=== PATIENT | male | born 1935 | race Caucasian/White ===

== ENCOUNTER → 2016-12-23 | Outpatient (CLI) | payer MEDICARE, OTHER ==
[~2016-12-23] MED LIST: AML2.5T; AML2.5T PO; AMLO2.5T PO; ASP81TEC PO; CANA100T PO; CARB1TAB19 PO; CARB1TAB44 PO; CEFD300C3 PO; CENTRUM SILVER; CLOP75TA28 PO; CLPD75T; COLC0.6C3 PO; ECOTRIN; FURO20TA4 PO; GLBR5T; GLIM4TAB PO; HYDR-3454 PO; HYDR-3812 PO; IRB150T; MELO7.5T; METF500T4 PO; METO-272 PO; METO50TA2 PO; MTF500T PO; MULT-1029 PO; MULT-608; SULF1TAB35 PO; TELM20TA PO; TELM40T PO; VALS160T28 PO; [UNRECOGNIZED DRUG - OTHER]
--- OUTSIDE RECORDS SUMMARY | 2016-12-23 11:52 | XMS REPORT | Continuity of Care Document ---
Author Author [facility] Organization [facility] Address Unknown Phone Unavailable Care Team Providers Care Glass Handler Name Role Phone RADHA HOYOS DO PCP Insurance Providers Payer Name Policy Number Subscriber Name Relationship Wps Medicare [id number] Imtiaz Fox 18 Self / Same As Patient [employer] Ins [id number] Imtiaz Fox 18 Self / Same As Patient Advance Directives Directive Response Recorded Date/Time Advance Directives Yes 06/13/16 6:35am Health Care Power of Plan Checker Y & daughter zachary 6:35am Organ Donor No 06/13/16 6:35am Resuscitation Status Full Code 06/13/16 6:35am Problems No problem information available. Medications Current Home Medications Medication Dose Units Route Directions Days/Qty Instructions Start Date Metformin Hcl 500 Mg Oral 2 TABS/1000MG PO WITH BREAKFAST 1 TAB/ 500MG PO WITH DINNER 01/11/09 Glimepiride 4 Mg 4 Mg Oral Bidwithmeals 07/05/13 Aspirin 81 Mg 81 Mg Oral Daily 07/05/13 Carbidopa/Levodopa 1 Each 1 Each Oral Twice A Day 03/09/15 Clopidogrel Bisulfate 75 Mg 75 Mg Oral Daily 03/09/15 Metoprolol Tartrate 50 Mg 50 Mg Oral Daily 03/09/15 Valsartan 160 Mg 160 Mg Oral Daily 06/10/16 Amlodipine Besylate 2.5 Mg 2.5 Mg Oral Daily 06/10/16 Past Home Medications Medication Directions Ordered Status [Lavaprol] 150 Mg Tab, 01/11/09 Discontinued [Ecotrin] 81 Mg Tab, 01/11/09 Discontinued Amlodipine Besylate 2.5 Mg Tab, 01/11/09 Discontinued Meloxicam 7.5 Mg Tablet, 01/11/09 Discontinued Clopidogrel Bisulfate 75 Mg Tab, 01/11/09 Discontinued Glyburide 5 Mg Tab, 01/11/09 Discontinued [Centrum Silver] Tab, 01/11/09 Discontinued Irbesartan 150 Mg Tab, 07/12/09 Discontinued Irbesartan 150 Mg Tab, 07/12/09 Discontinued Multivitamins 1 Tab Tablet, 07/12/09 Discontinued Telmisartan 40 Mg Tab, 40 Mg Oral Daily 07/05/13 Discontinued Mu-Vits-Min // 1 Each Tablet, 1 Tab Oral Daily 07/05/13 Discontinued Amlodipine Besylate 2.5 Mg Tab, 5 Mg Oral Daily 07/07/13 Discontinued Telmisartan 20 Mg Tablet, 20 Mg Oral Daily 03/09/15 Discontinued Hydrocodone Bit/Acetaminophen 1 Each Tablet, 1 Each Oral Every 4HRS as needed for Pain 03/16/15 Discontinued Social History Social History Problem Response Recorded Date/Time Alcohol Use Denies Use 03/16/2015 9:10am Recreational Drug Use No 03/16/2015 9:10am Recent Foreign Travel No 07/04/2013 9:05pm Recent Infectious Disease Exposure No 07/04/2013 9:05pm Hospitalization with Isolation Contact 07/07/2013 3:20pm Sexually Transmitted Disease Yes 06/13/2016 6:35am HIV/AIDS No 06/13/2016 6:35am Smoking Status Former Smoker 06/13/2016 6:35am Sexually Transmitted Disease Yes 06/13/2016 6:35am Hospitalization with Isolation Contact 07/07/2013 3:20pm Query Response Start Date Stop Date Smoking Status Former Smoker Hospital Discharge Instructions Patient Instructions Physician Instructions Plan of Care/Instructions/FU: Follow up with Dr. Iyer in 7-10 days. Begin all medications tomorrow. Discharge Diet: No Restrictions Other Inst to Patient Follow up Appt: Make appointment for 7-10 days Begin all medication tomorrow. Instructions: No lifting greater than 10 pounds. No strenuous activity. May shower in 24 hours, no tub bath or soaking. Use incentive spirometer at home as directed. No Smoking Skin/Wound Care: May remove bandages. You need to leave the white strips over incision on they will fall off on their own. Symptoms to Report: Appetite Changes, Extremity Discoloration, Numbness/Tingling, Swelling Increased, Bleeding Excessive, Eyesight Changes, Pain Increased, Urine Color Change, Constipation(Persistent), Fever over 101 degree F, Pain/Pressure in chest, Urinating Difficulty, Cough Up/Vomit Blood, Heart Beat Irreg/Pounding, Pain/Pressure in jaw, Vaginal Bleeding Increase, Cramps in feet or legs, Lightheadedness, Pain/Pressure in shoulder, Diarrhea(Persistent), Memory Changes Suddenly, Questions/Concerns, Weight gain consecutive days, Dizziness/Fainting, Nausea/Vomiting, Shortness of Breath, Weight gain over 2 pounds If questions or concerns contact your physician Or seek help at emergency department. Care Plan Patient Instructions:: Follow up with Dr. Iyer in 7-10 days.Begin all medications tomorrow. Plan of Care Discharge Date 06/13/16 10:40am Instructions/Education Provided ANESTHESIA INSTRUCTIONS POSTOP Prescriptions See Medication Section Functional Status No functional status results. Allergies, Adverse Reactions, Alerts Allergen Type Severity Reaction Status Last Updated Meperidine Allergy Mild Active 01/11/09 Immunizations No immunization records. Vital Signs Acute Vital Signs Vital Response Date/Time Temperature (Fahrenheit) 97.3 degrees F (97.6 - 99.5) 06/13/2016 10:20am Temperature (Calculated Celsius) 36.15378 degrees C (36.4 - 37.5) 06/13/2016 10:20am Temperature Source Temporal 06/13/2016 10:20am Pulse Rate (adult) 64 bpm (60 - 90) 06/13/2016 10:20am Respiratory Rate 18 bpm (12 - 24) 06/13/2016 10:20am O2 Sat by Pulse Oximetry 98 % (88 - 100) 06/13/2016 10:20am Blood Pressure 141/77 mm Hg 06/13/2016 10:20am Blood Pressure Mean 107 mm Hg 06/13/2016 6:35am Pain Numeric Pain Scale 0-No Pain 06/13/2016 10:35am Pain Intensity 0 06/13/2016 10:20am Height (Feet) 5 feet 06/13/2016 6:35am Height (Inches) 8.00 inches 06/13/2016 6:35am Height (Calculated Centimeters) 172.552448 cm 06/13/2016 6:35am Weight (Pounds) 197 pounds 06/13/2016 6:35am Weight (Ounces) 6.0 oz 06/13/2016 6:35am Weight (Calculated Grams) 31355.80 gm 06/13/2016 6:35am Weight (Calculated Kilograms) 89.523277 kilograms 06/13/2016 6:35am Calculated BMI 30.0 06/13/2016 6:35am Capillary Refill Capillary Refill Less Than 3 Seconds 06/13/2016 6:35am Results Laboratory Results Test Name Result Units Flags Reference Collection Date/Time Result Date/ Time Comments White Blood Count 9.9 10^3/uL 4.3-11.0 07/20/2009 6:07/20/2009 7: 49am Red Blood Count 4.77 10^6/uL 4.35-5.85 07/20/2009 6:07/20/2009 7: 49am Hemoglobin 14.6 G/DL 13.3-17.7 07/20/2009 6:07/20/2009 7:49am Hematocrit 41 % 40-54 07/20/2009 6:07/20/2009 7:49am Mean Corpuscular Volume 86 FL 80-99 07/20/2009 6:07/20/2009 7: 49am Mean Corpuscular Hemoglobin 31 PG 25-34 07/20/2009 6:07/20/2009 7: 49am Mean Corpuscular Hemoglobin Concent 35 G/DL 32-36 07/20/2009 6: 7:49am Red Cell Distribution Width 12.2 % 10.0-14.5 07/20/2009 6:2008 7:49am Platelet Count 341 10^3/uL 130-400 07/20/2009 6:07/20/2009 7:49am Mean Platelet Volume 9.3 FL 7.4-10.4 07/20/2009 6:07/20/2009 7: 49am Neutrophils (%) (Auto) 60 % 42-75 07/20/2009 6:07/20/2009 7:49am Lymphocytes (%) (Auto) 25 % 12-44 07/20/2009 6:07/20/2009 7:49am Monocytes (%) (Auto) 11 % 0-12 07/20/2009 6:07/20/2009 7:49am Eosinophils (%) (Auto) 5 % 0-10 07/20/2009 6:07/20/2009 7:49am Basophils (%) (Auto) 0 % 0-10 07/20/2009 6:07/20/2009 7:49am Neutrophils # (Auto) 5.9 X 10^3 1.8-7.8 07/20/2009 6:07/20/2009 7: 49am Lymphocytes # (Auto) 2.4 X 10^3 1.0-4.0 07/20/2009 6:07/20/2009 7: 49am Monocytes # (Auto) 1.1 X 10^3 H 0.0-1.0 07/20/2009 6:07/20/2009 7: 49am Eosinophils # (Auto) 0.5 10^3/uL H 0.0-0.3 07/20/2009 6:07/20/2009 7 :49am Basophils # (Auto) 0.0 10^3/uL 0.0-0.1 07/20/2009 6:07/20/2009 7: 49am Erythrocyte Sedimentation Rate 49 MM/HR H 0-30 07/19/2009 6:232008 7:23am Sodium Level 135 MMOL/L 135-145 07/17/2009 3:5507/17/2009 4:59am Potassium Level 3.9 MMOL/L 3.6-5.0 07/17/2009 3:5507/17/2009 4:59am Chloride Level 99 MMOL/L L 101-110 07/17/2009 3:55am 07/17/2009 4:59am Carbon Dioxide Level 31 MMOL/L 21-32 07/17/2009 3:55am 07/17/2009 4: 59am Anion Gap 5 MEQ/L 5-14 07/17/2009 3:55am 07/17/2009 4:59am Blood Urea Nitrogen 8 MG/DL -18 07/17/2009 3:55am 07/17/2009 4:59am Creatinine 0.8 MG/DL 0.6-1.3 07/17/2009 3:55am 07/17/2009 4:59am BUN/Creatinine Ratio 10 07/17/2009 3:55am 07/17/2009 4:59am Estimat Glomerular Filtration Rate > 60 07/12/2009 2:05pm 2008 2:28pm GFR INTERPRETIVE DATA UNITS FOR ESTIMATED GFR (eGFR): mL/min/1.73 M2 REFERENCE RANGE FOR ESTIMATED GFR (eGFR) eGFR NORMAL eGFR >60 MODERATELY DECREASED eGFR 30-59 SEVERLY DECREASED eGFR 15-29 KIDNEY FAILURE <15 (OR DIALYSIS) Glucose Level 65 MG/DL L 70-126 07/17/2009 3:55am 07/17/2009 4:59am Glucometer 151 MG/DL H 70-110 07/20/2009 4:03pm 07/20/2009 4:19pm Uric Acid 2.1 MG/DL L 2.6-7.2 07/14/2009 8:55am 07/14/2009 9:19am Calcium Level 8.8 MG/DL 8.5-10.1 07/17/2009 3:55am 07/17/2009 4:59am Vancomycin Level Trough 10.9 MCG/ML 1007/20/2009 12:07pm 2008 12:48pm Hemoglobin A1c 7.1 H % 4.3-6.1 07/12/2009 2:05pm 07/14/2009 6:48am Pending Laboratory Results Test Name Collection Date/Time Microbiology Results Procedure Source Result Collection Date/Time Result Date/Time Anaerobic Culture Wound, Foot, Right PEPTOSTREPTOCOCCUS SPECIES 07/18/2009 5 :30pm 07/22/2009 7:59am Wound Culture Incision, Foot, Right STAPHYLOCOCCUS AUREUS 07/18/2009 5:30pm 07/22/2009 8:00am Pending Microbiology Results Procedure Source Collection Date/Time Procedures Procedure Status Date Provider(s) Excision of lesion Completed 06/13/16 LILLIE IYER DO Encounters Encounter Location Arrival/Admit Date Discharge/Depart Date Attending Provider Departed [facility] 06/13/16 6:08am 10:40am LILLIE IYER DO Departed Clinic [facility] 06/10/16 11:29am 06/10/16 12: 38pm LILLIE IYER DO Discharged Inpatient [facility] 12:00am 07/20/09 5: 06pm
--- NOTE | 2016-12-23 12:35 | Diagnostic Imaging Report ---
PROCEDURE: US left lower extremity venous. TECHNIQUE: Multiple real-time grayscale images were obtained over the left lower extremity in various projections. Additional duplex Doppler and color Doppler images were also obtained. INDICATION: Left ankle and foot redness and swelling. FINDINGS: The left common femoral, superficial femoral and popliteal veins demonstrate normal response to compression, augmentation, and Valsalva. There are no abnormal left lower extremity fluid collections or masses. IMPRESSION: No evidence of deep venous thrombosis in the left lower extremity. Dictated by: Dictated on workstation # [id number]
== END ==
LOC: RAD 11:49
PROVIDERS: ATTEND Family Medicine
DX: R22.42 Localized swelling, mass and lump, left lower limb (principal); L03.116 Cellulitis of left lower limb

== ENCOUNTER 2016-12-24 10:51 | Observation (INO) | payer MEDICARE, OTHER ==
[~2016-12-24] VITALS: Ht 172.7 cm; Wt 90.9 kg
[~2016-12-24 10:51] MED LIST changes: -CANA100T PO; -CARB1TAB19 PO; -CEFD300C3 PO; -COLC0.6C3 PO; -FURO20TA4 PO; -HYDR-3812 PO; -METF500T4 PO; -METO-272 PO; -SULF1TAB35 PO
[2016-12-24] MEDS ORDERED: CATHETER FLUSH 10 ML SYR IV PRN (12:00)
[2016-12-24] MEDS ORDERED: VANCOMYCIN INJECTION 1,500 MG in NS IV 500 ML 500 ML IV NR (12:06)
[2016-12-24] MEDS ORDERED: CARB1TAB19 PO ×2 (12:33)
[2016-12-24] MEDS ORDERED: FURO20TA4 PO (12:33)
[2016-12-24] MEDS ORDERED: SULF1TAB35 PO (12:33)
[2016-12-24] MEDS ORDERED: CLOP75TA28 PO (12:33)
[2016-12-24] MEDS ORDERED: HYDR-3812 PO (12:33)
[2016-12-24] MEDS ORDERED: METF500T4 PO (12:33)
[2016-12-24] MEDS ORDERED: CANA100T PO (12:33)
[2016-12-24] MEDS ORDERED: GLIM4TAB PO (12:33)
[2016-12-24] MEDS ORDERED: CEFD300C3 PO (12:33)
[2016-12-24 12:34] VITALS: BP 179/79
[2016-12-24] MEDS ORDERED: METO-272 PO (12:44)
[2016-12-24 12:59] LABS: BASOPHILS % (AUTO) 0 % (0-10); EOSINOPHILS # (AUTO) 0.1 10^3/uL (0.0-0.3); EOSINOPHILS % (AUTO) 1 % (0-10); LYMPHOCYTES # (AUTO) 1.7 X 10^3 (1.0-4.0); LYMPHOCYTES % (AUTO) 19 % (12-44); MEAN CORPUSCULAR HEMOGLOBIN 31 PG (25-34); MEAN CORPUSCULAR HGB CONC 35 G/DL (32-36); MEAN CORPUSCULAR VOLUME 89 FL (80-99); MEAN PLATELET VOLUME 9.7 FL (7.4-10.4); MONOCYTES # (AUTO) 1.1 X 10^3 (0.0-1.0); MONOCYTES % (AUTO) 12 % (0-12); NEUTROPHILS # (AUTO) 6.2 X 10^3 (1.8-7.8); NEUTROPHILS % (AUTO) 68 % (42-75); PLATELET COUNT 236 10^3/uL (130-400); RED BLOOD COUNT 4.63 10^6/uL (4.35-5.85); RED CELL DISTRIBUTION WIDTH 13.1 % (10.0-14.5); WHITE BLOOD COUNT 9.1 10^3/uL (4.3-11.0)
[2016-12-24] MEDS: cefTRIAXone 1 GM/NS 50 ML IVPB IV SCH ×2 (13:17)
[2016-12-24 13:20] LABS: ALBUMIN 3.7 G/DL (3.2-4.5); BILIRUBIN,TOTAL 0.9 MG/DL (0.1-1.0); CALCIUM 8.9 MG/DL (8.5-10.1); CREATININE SERUM 1.26 MG/DL (0.60-1.30); POTASSIUM 3.7 MMOL/L (3.6-5.0); TOTAL PROTEIN 6.7 G/DL (6.4-8.2)
--- OUTSIDE RECORDS SUMMARY | 2016-12-24 13:32 | XMS REPORT | Continuity of Care Document ---
Author Author [facility] Organization [facility] Address Unknown Phone Unavailable Care Team Providers Care Trials Manager Name Role Phone RADHA HOYOS DO PCP Insurance Providers Payer Name Policy Number Subscriber Name Relationship Wps Medicare [id number] Imtiaz Fox 18 Self / Same As Patient [employer] [id number] Imtiaz Fox 18 Self / Same As Patient Advance Directives Directive Response Recorded Date/Time Advance Directives Yes 06/13/16 6:35am Health Care Power of Search Marketing Analyst Y & daughter zachary 6:35am Organ Donor [...] - 99.5) 06/13/2016 10:20am Temperature (Calculated Celsius) 36.65797 degrees C (36.4 - 37.5) 06/13/2016 10:20am [...] 8.00 inches 06/13/2016 6:35am Height (Calculated Centimeters) 172.154806 cm 06/13/2016 6:35am Weight (Pounds) 197 pounds 06/13/2016 6:35am Weight (Ounces) 6.0 oz 06/13/2016 6:35am Weight (Calculated Grams) 56352.80 gm 06/13/2016 6:35am Weight (Calculated Kilograms) 89.902279 kilograms 06/13/2016 6:35am Calculated BMI 30.0 06/13/2016 [...] Attending Provider Departed Surgical Day Care [facility] 06/13/16 6:08am 10:40am LILLIE IYER DO Departed Clinic [facility] 06/10/16 11:29am 06/10/16 12: 38pm LILLIE IYER DO Discharged Inpatient [facility] 12:00am 07/20/09 5: 06pm
[2016-12-24] MEDS: CATHETER FLUSH 10 ML SYR IV SCH ×2 (13:40→22:08)
[2016-12-24 16:00] VITALS: BP 149/71
[2016-12-24] MEDS ORDERED: PATIENT MAY USE OWN MEDS, ALL MC SCH (16:45)
[2016-12-24] MEDS ORDERED: SINEMET 25/100 (CARBIDOPA/LEVODOPA) TAB PO SCH (17:00)
[2016-12-24] MEDS: fentaNYL INJECTION 100 MCG/2 ML AMP IVP PRN (17:10)
[2016-12-24 20:00] VITALS: BP 162/72
[2016-12-24] MEDS: SINEMET 25/100 (CARBIDOPA/LEVODOPA) TAB PO SCH (20:24)
[2016-12-25] VITALS: BP 158/76
[2016-12-25 04:00] VITALS: BP 158/76
[2016-12-25 04:59] LABS: BASOPHILS % (AUTO) 0 % (0-10); EOSINOPHILS # (AUTO) 0.2 10^3/uL (0.0-0.3); EOSINOPHILS % (AUTO) 4 % (0-10); LYMPHOCYTES # (AUTO) 1.7 X 10^3 (1.0-4.0); LYMPHOCYTES % (AUTO) 28 % (12-44); MEAN CORPUSCULAR HEMOGLOBIN 31 PG (25-34); MEAN CORPUSCULAR HGB CONC 35 G/DL (32-36); MEAN CORPUSCULAR VOLUME 88 FL (80-99); MONOCYTES # (AUTO) 0.9 X 10^3 (0.0-1.0); MONOCYTES % (AUTO) 16 % (0-12); NEUTROPHILS % (AUTO) 52 % (42-75); PLATELET COUNT 208 10^3/uL (130-400); RED BLOOD COUNT 4.15 10^6/uL (4.35-5.85); RED CELL DISTRIBUTION WIDTH 12.9 % (10.0-14.5); WHITE BLOOD COUNT 5.8 10^3/uL (4.3-11.0)
[2016-12-25] MEDS: fentaNYL INJECTION 100 MCG/2 ML AMP IVP PRN ×4 (06:04→15:57)
[2016-12-25] MEDS: GLIMEPIRIDE 4 MG (AMARYL) TAB PO SCH ×2 (06:04→16:06)
[2016-12-25] MEDS: metFORMIN 500 MG (GLUCOPHAGE) TAB PO SCH ×2 (06:05→16:06)
[2016-12-25] MEDS: SINEMET 25/100 (CARBIDOPA/LEVODOPA) TAB PO SCH ×2 (06:06→16:06)
[2016-12-25] MEDS: INVOKANA 100 MG TAB PO SCH (06:07)
[2016-12-25] MEDS: CATHETER FLUSH 10 ML SYR IV SCH ×3 (06:07→20:46)
[2016-12-25] MEDS ORDERED: GLIMEPIRIDE 4 MG (AMARYL) TAB PO SCH (07:00)
[2016-12-25] MEDS ORDERED: metFORMIN 500 MG (GLUCOPHAGE) TAB PO SCH (07:00)
[2016-12-25 08:00] VITALS: BP 137/69
--- NOTE | 2016-12-25 08:27 | History & Physicial ---
History of Present Illness History of Present Illness Reason for visit/HPI patient came to the office with swollen left leg and ankle and redness and heat. Patient has outpatient had a venous Doppler which was negative. Patient's uric acid was within normal limits. Patient had a cellulitis of the left leg and ankle. Patient stated started last Friday. Previous surgeries appendectomy and gallbladder an exploratory. Family history cancer denies asthma, diabetes, TB, heart disease Date of Admission Dec 24, 2016 at 11:17 I consulted on this patient on 12/25/16 08:22 Attending Physician Michele Hoyos DO Admitting Physician Michele Hoyos DO Consult Allergies and Home Medications Allergies Coded Allergies: meperidine (Verified Allergy, Mild, 01/11/09) Home Medications Amlodipine Besylate 2.5 Mg Tablet 2.5 MG PO DAILY (Reported) Aspirin 81 Mg Tabec 81 MG PO DAILY (Reported) Canagliflozin 100 Mg Tablet 100 MG PO DAILY (Reported) Carbidopa/Levodopa 1 Each Tablet 2 TAB PO BID WITH MEALS (Reported) Cefdinir 300 Mg Capsule 7Days 300 MG PO BID (Reported) 7 DAY THERAPY FILLED 12-23-16 Clopidogrel Bisulfate 75 Mg Tablet 75 MG PO DAILY (Reported) Furosemide 20 Mg Tablet 20 MG PO DAILY (Reported) Glimepiride 4 Mg Tablet 4 MG PO BIDAC (Reported) Hydrocodone/Acetaminophen 1 Each Tablet 1 TAB PO TID PRN PRN PAIN (Reported) Metformin HCl 500 Mg Tablet 1,000 MG PO BIDAC (Reported) TAKES 2 (500MG) TABLETS Metoprolol Succinate 50 Mg Tab.er.24h 50 MG PO DAILY (Reported) Sulfamethoxazole/Trimethoprim 1 Each Tablet 7Days 1 TAB PO BID (Reported) 7 DAY THERAPY FILLED 12-23-16 Valsartan 160 Mg Tablet 160 MG PO DAILY (Reported) Past Tdygupk-Nicznk-Ljuxcj Hx Patient Social History Marrital Status: Employed/Student: unemployed Alcohol Use: Denies Use Recreational Drug Use: No Physical Abuse Screen: No Sexual Abuse: No Recent Foreign Travel: No Contact w/other who traveled: No Recent Hopitalizations: No Recent Infectious Disease Expo: No Immunizations Up To Date Tetanus Booster (TDap): Unknown Date of Pneumonia Vaccine: Aug 03, 2012 Date of Influenza Vaccine: Aug 04, 2016 Seasonal Allergies Seasonal Allergies: No Surgeries HX Surgeries: Yes (SKIN LESION) Surgeries: Appendectomy, Gallbladder Respiratory Hx Respiratory Disorders: No Cardiovascular Hx Cardiovascular Disorders: Yes Neurological Hx Neurological Disorders: Yes Reproductive System Hx Reproductive Disorders: No Sexually Transmitted Disease: Yes HIV/AIDS: No Genitourinary Hx Genitourinary Disorders: Yes (FREQUENT URINATION) Gastrointestinal Hx Gastrointestinal Disorders: Yes Gastrointestinal Disorders: Chronic Constipation Musculoskeletal Hx Musculoskeletal Disorders: Yes Musculoskeletal Disorders: Arthritis Endocrine Hx Endocrine Disorders: Yes Endocrine Disorders: Diabetes, Non-Insulin dep HEENT HX ENT Disorders: Yes (DENTURES, BLIND IN ONE EYE) HEENT Disorders: Cataract Loss of Vision: Right Hearing Impairment: Denies Cancer Hx Cancer: Yes Cancer: Skin Psychosocial Hx Psychiatric Problems: No Integumentary HX Skin/Integumentary Disorder: Yes (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 ALSO HX OF TINEA PEDIS) Skin/Integumentary Disorders: Recent Skin Changes Blood Transfusions Hx Blood Disorders: No Adverse Reaction to a Blood Tr: No Family Medical History Family Hx: Alzheimer's disease Cardiovascular disease Diabetes mellitus Constitutional: no symptoms reported EENTM: no symptoms reported Respiratory: no symptoms reported Cardiovascular: no symptoms reported Gastrointestinal: no symptoms reported Genitourinary: no symptoms reported Musculoskeletal: other (needs walker to walk due to the pain and swelling of left leg and redness) Physical Exam Vital Signs Vital Sign - Last 12Hours 12/24/16 12/24/16 12:13 12:34 Temp 99.0 Pulse 78 Resp 20 B/P 179/79 Pulse Ox 98 O2 Delivery Room Air Capillary Refill : General Appearance: No Apparent Distress Eyes: Bilateral Eye Normal Inspection HEENT: Normal ENT Inspection Neck: Full Range of Motion Non Tender Respiratory: Chest Non Tender Lungs Clear Normal Breath Sounds No Accessory Muscle Use No Respiratory Distress Cardiovascular: Regular Rate, Rhythm No Murmur Gastrointestinal: Non Tender Soft Extremity: Other (left foot and ankles swollen and red and painful to walk) Assessment/Plan Assessment and Plan cellulitis of left leg and ankle. Diabetes. Hypertension. Hyperlipidemia Clinical Quality Measures DVT/VTE Risk/Contraindication: Risk Factor Score Per Nursin RFS Level Per Nursing on Admit: 4+=Very High Contraindications-Pharm: Other *list below* Contraindications-Mechi: Other *list below* Other: patient on plavix MICHELE HOYOS DO Dec 25, 2016 08:26
[2016-12-25] MEDS ORDERED: meTOproloL SUCCINATE 50 MG (TOPROL XL) TAB PO SCH (09:00)
[2016-12-25] MEDS ORDERED: NON-FORMULARY MEDICATION 1 EA EA (Canagliflozin (Invokana) 100 MG) PO SCH (09:00)
[2016-12-25] MEDS ORDERED: ASPIRIN E.C. 81 MG (ECOTRIN) TAB PO SCH (09:00)
[2016-12-25] MEDS ORDERED: VALSARTAN 80 MG (DIOVAN) TAB PO SCH (09:00)
[2016-12-25] MEDS ORDERED: NON-FORMULARY MEDICATION 1 EA EA (Valsartan 160 MG) PO SCH (09:00)
[2016-12-25] MEDS: cefTRIAXone 1 GM/NS 50 ML IVPB IV SCH ×2 (09:09)
[2016-12-25] MEDS: VALSARTAN 160 MG TAB PO SCH (09:09)
[2016-12-25] MEDS: amLODIPine 2.5MG (NORVASC) TAB PO SCH (09:10)
[2016-12-25] MEDS: meTOproloL SUCCINATE 50 MG (TOPROL XL) TAB PO SCH (09:11)
[2016-12-25] MEDS: ASPIRIN E.C. 81 MG (ECOTRIN) TAB PO SCH (09:11)
[2016-12-25] MEDS: CLOPIDOGREL 75 MG (PLAVIX) TABLET PO SCH (09:12)
[2016-12-25] MEDS: FUROSEMIDE 20 MG (LASIX) TAB PO SCH (09:13)
[2016-12-25 12:00] VITALS: BP 161/81
[2016-12-25] MEDS: VANCOMYCIN 1250 MG/NS 250 ML IVPB IV SCH ×2 (12:21)
[2016-12-25 16:00] VITALS: BP 154/73
[2016-12-25] MEDS: HYDROcodone/APAP 10 MG/325 MG (LORTAB) TAB PO PRN (16:41)
--- NOTE | 2016-12-25 16:55 | Diagnostic Imaging Report ---
INDICATION: Left ankle pain. TECHNIQUE: AP, oblique, and lateral views of the left ankle were obtained. FINDINGS: There is plantar calcaneal spurring. There is mild degenerative change in the talonavicular joint. There is no acute fracture or acute bony abnormality. IMPRESSION: Mild chronic findings with no acute bony abnormality. Dictated by: Dictated on workstation # [id number]
--- NOTE | 2016-12-25 16:59 | Diagnostic Imaging Report ---
INDICATION: Left foot and ankle pain, swelling, and erythema. TECHNIQUE: AP, oblique, and lateral views of the left foot were obtained. FINDINGS: There is no acute fracture or acute bony abnormality. There is degenerative change of the first MTP joint as well as degenerative change in the interphalangeal joints throughout. There is some degenerative change of the talonavicular joint as well as some plantar calcaneal spurring. IMPRESSION: Chronic findings as above with no acute bony abnormality. Dictated by: Dictated on workstation # [id number]
[2016-12-25 20:00] VITALS: BP 133/61
[2016-12-26] VITALS: BP 177/92
[2016-12-26] MEDS: HYDROcodone/APAP 10 MG/325 MG (LORTAB) TAB PO PRN ×3 (05:41→17:31)
[2016-12-26] MEDS: CATHETER FLUSH 10 ML SYR IV SCH ×3 (06:17→23:55)
[2016-12-26] MEDS: metFORMIN 500 MG (GLUCOPHAGE) TAB PO SCH ×2 (06:17→17:31)
[2016-12-26] MEDS: GLIMEPIRIDE 4 MG (AMARYL) TAB PO SCH ×2 (06:17→17:33)
[2016-12-26] MEDS: INVOKANA 100 MG TAB PO SCH (06:18)
[2016-12-26] MEDS: SINEMET 25/100 (CARBIDOPA/LEVODOPA) TAB PO SCH ×2 (06:19→17:32)
[2016-12-26 07:33] LABS: BASOPHILS % (AUTO) 1 % (0-10); EOSINOPHILS # (AUTO) 0.3 10^3/uL (0.0-0.3); EOSINOPHILS % (AUTO) 4 % (0-10); LYMPHOCYTES # (AUTO) 1.9 X 10^3 (1.0-4.0); LYMPHOCYTES % (AUTO) 26 % (12-44); MEAN CORPUSCULAR HEMOGLOBIN 31 PG (25-34); MEAN CORPUSCULAR HGB CONC 35 G/DL (32-36); MEAN CORPUSCULAR VOLUME 88 FL (80-99); MEAN PLATELET VOLUME 9.6 FL (7.4-10.4); MONOCYTES # (AUTO) 0.8 X 10^3 (0.0-1.0); MONOCYTES % (AUTO) 11 % (0-12); NEUTROPHILS # (AUTO) 4.2 X 10^3 (1.8-7.8); NEUTROPHILS % (AUTO) 59 % (42-75); PLATELET COUNT 249 10^3/uL (130-400); RED BLOOD COUNT 4.52 10^6/uL (4.35-5.85); RED CELL DISTRIBUTION WIDTH 12.8 % (10.0-14.5); WHITE BLOOD COUNT 7.2 10^3/uL (4.3-11.0)
[2016-12-26 07:57] LABS: ANION GAP 11 MMOL/L (5-14); BLOOD UREA NITROGEN 10 MG/DL (7-18); BUN/CREATININE RATIO 12; CALCIUM 8.6 MG/DL (8.5-10.1); CARBON DIOXIDE 21 MMOL/L (21-32); CHLORIDE 101 MMOL/L (98-107); CREATININE SERUM 0.84 MG/DL (0.60-1.30); GFR ESTIMATED > 60; GLUCOSE 148 MG/DL (70-105); POTASSIUM 3.9 MMOL/L (3.6-5.0); SODIUM 133 MMOL/L (135-145)
[2016-12-26 08:00] VITALS: BP 135/73
--- NOTE | 2016-12-26 08:06 | Progress Note (SOAP) ---
Subjective Subjective/Events-last exam cellulitis of left ankle. Cellulitis of left foot . Swelling has gone down. Redness is getting better. Medial ankle has redness Patient unable to walk and and still in pain. Patient lives alone area Patient needs a walker to get around. Diabetes. Coronary artery disease. Objective Exam Vital Signs Date Time Temp Pulse Resp B/P Pulse Ox O2 Delivery O2 Flow Rate FiO2 12/26/16 00:00 96.8 73 18 177/92 99 Room Air 12/25/16 20:00 97.5 76 18 133/61 96 Room Air 12/25/16 16:00 98.3 72 21 154/73 97 Room Air 12/25/16 12:00 98.1 74 20 161/81 99 Room Air I & O 12/26/16 07:00 Intake Total 2412.5 ml Output Total 2370 ml Balance 42.5 ml Capillary Refill : General Appearance: No Apparent Distress WD/WN HEENT: Normal ENT Inspection Neck: Full Range of Motion Normal Inspection Non Tender Respiratory: Chest Non Tender Lungs Clear Normal Breath Sounds No Accessory Muscle Use No Respiratory Distress Cardiovascular: Regular Rate, Rhythm No Murmur Gastrointestinal: non tender soft Extremity: Other (swelling going down. Medial left ankle red and painful to touch) Results Lab Laboratory Tests 12/26/16 07:05: Anion Gap 11, BUN/Creatinine Ratio 12, Basophils # (Auto) 0.0, Basophils (%) ( Auto) 1, Blood Urea Nitrogen 10, Calcium Level 8.6, Carbon Dioxide Level 21, Chloride Level 101, Creatinine 0.84, Eosinophils # (Auto) 0.3, Eosinophils (%) ( Auto) 4, Estimat Glomerular Filtration Rate > 60, Glucose Level 148H, Hematocrit 40, Hemoglobin 13.9, Lymphocytes # (Auto) 1.9, Lymphocytes (%) (Auto ) 26, Mean Corpuscular Hemoglobin 31, Mean Corpuscular Hemoglobin Concent 35, Mean Corpuscular Volume 88, Mean Platelet Volume 9.6, Monocytes # (Auto) 0.8, Monocytes (%) (Auto) 11, Neutrophils # (Auto) 4.2, Neutrophils (%) (Auto) 59, Platelet Count 249, Potassium Level 3.9, Red Blood Count 4.52, Red Cell Distribution Width 12.8, Sodium Level 133L, White Blood Count 7.2 Assessment/Plan Assessment/Plan Assess & Plan/Chief Complaint cellulitis of left ankle and leg and foot. Patient lives alone. Patient in pain when walks and unable to get around except with a walker. Cellulitis of medial ankle and redness the air and pain to touch Diagnosis/Problems: Clinical Quality Measures DVT/VTE Risk/Contraindication: Risk Factor Score Per Nursin RFS Level Per Nursing on Admit: 4+=Very High Contraindications-Pharm: Other *list below* Contraindications-Mechi: Other *list below* Other: patient on plavix RADHA HOYOS DO Dec 26, 2016 08:05
[2016-12-26] MEDS: cefTRIAXone 1 GM/NS 50 ML IVPB IV SCH ×2 (10:19)
[2016-12-26] MEDS: FUROSEMIDE 20 MG (LASIX) TAB PO SCH (10:22)
[2016-12-26] MEDS: ASPIRIN E.C. 81 MG (ECOTRIN) TAB PO SCH (10:23)
[2016-12-26] MEDS: CLOPIDOGREL 75 MG (PLAVIX) TABLET PO SCH (10:23)
[2016-12-26] MEDS: meTOproloL SUCCINATE 50 MG (TOPROL XL) TAB PO SCH (10:25)
[2016-12-26] MEDS: amLODIPine 2.5MG (NORVASC) TAB PO SCH (10:26)
[2016-12-26] MEDS: VALSARTAN 160 MG TAB PO SCH (10:26)
[2016-12-26] MEDS ORDERED: TROUGH ORDER-PHARMACY XX NR (11:00)
[2016-12-26] MEDS: VANCOMYCIN 1250 MG/NS 250 ML IVPB IV SCH ×4 (12:00→23:55)
[2016-12-26 16:00] VITALS: BP 151/79
[2016-12-26] MEDS ORDERED: METF500T4 PO (17:41)
[2016-12-27] VITALS: BP 159/81
[2016-12-27] MEDS: HYDROcodone/APAP 10 MG/325 MG (LORTAB) TAB PO PRN ×3 (01:51→12:58)
[2016-12-27] MEDS: CATHETER FLUSH 10 ML SYR IV SCH ×2 (06:17→12:55)
[2016-12-27] MEDS: metFORMIN 500 MG (GLUCOPHAGE) TAB PO SCH (06:18)
[2016-12-27] MEDS: INVOKANA 100 MG TAB PO SCH (06:18)
[2016-12-27] MEDS: GLIMEPIRIDE 4 MG (AMARYL) TAB PO SCH (06:19)
[2016-12-27] MEDS: SINEMET 25/100 (CARBIDOPA/LEVODOPA) TAB PO SCH (06:22)
[2016-12-27 07:54] LABS: BASOPHILS % (AUTO) 1 % (0-10); EOSINOPHILS # (AUTO) 0.4 10^3/uL (0.0-0.3); EOSINOPHILS % (AUTO) 6 % (0-10); LYMPHOCYTES # (AUTO) 1.8 X 10^3 (1.0-4.0); LYMPHOCYTES % (AUTO) 26 % (12-44); MEAN CORPUSCULAR HEMOGLOBIN 31 PG (25-34); MEAN CORPUSCULAR HGB CONC 35 G/DL (32-36); MEAN CORPUSCULAR VOLUME 88 FL (80-99); MEAN PLATELET VOLUME 9.2 FL (7.4-10.4); MONOCYTES # (AUTO) 0.9 X 10^3 (0.0-1.0); MONOCYTES % (AUTO) 12 % (0-12); NEUTROPHILS # (AUTO) 3.9 X 10^3 (1.8-7.8); NEUTROPHILS % (AUTO) 55 % (42-75); PLATELET COUNT 274 10^3/uL (130-400); WHITE BLOOD COUNT 7.1 10^3/uL (4.3-11.0)
[2016-12-27 08:00] VITALS: BP 152/70
--- NOTE | 2016-12-27 08:05 | Progress Note (SOAP) ---
Subjective Subjective/Events-last exam patient lacks leg still has swelling. Medial ankles has severe pain. Patient still have trouble getting around. Uric acid normal blood patient also appears to be having gout. Patient put on colchicine. Patient to have physical therapy. Patient coughing now. Objective Exam Vital Signs Date Time Temp Pulse Resp B/P Pulse Ox O2 Delivery O2 Flow Rate FiO2 12/27/16 00:00 98.2 81 18 159/81 98 Room Air 12/26/16 16:00 97.5 75 20 151/79 98 Room Air I & O 12/27/16 07:00 Intake Total 2915.0 ml Output Total 2050 ml Balance 865.0 ml Capillary Refill : General Appearance: No Apparent Distress WD/WN HEENT: Normal ENT Inspection Neck: Normal Inspection Respiratory: Chest Non Tender No Accessory Muscle Use No Respiratory Distress Other (coughing) Cardiovascular: Regular Rate, Rhythm No Murmur Extremity: Other (pain in medial aspect of ankle) Results Lab Laboratory Tests 12/27/16 07:47 Laboratory Tests 12/26/16 10:50: Vancomycin Level Trough 5.3L 12/27/16 07:47: Basophils # (Auto) 0.0, Basophils (%) (Auto) 1, Eosinophils # (Auto) 0.4H, Eosinophils (%) (Auto) 6, Hematocrit 40, Hemoglobin 14.2, Lymphocytes # (Auto) 1.8, Lymphocytes (%) (Auto) 26, Mean Corpuscular Hemoglobin 31, Mean Corpuscular Hemoglobin Concent 35, Mean Corpuscular Volume 88, Mean Platelet Volume 9.2, Monocytes # (Auto) 0.9, Monocytes (%) (Auto) 12, Neutrophils # (Auto ) 3.9, Neutrophils (%) (Auto) 55, Platelet Count 274, Red Blood Count 4.60, Red Cell Distribution Width 13.0, White Blood Count 7.1 Microbiology 12/25/16 Blood Culture - Preliminary, Resulted No growth Assessment/Plan Assessment/Plan Assess & Plan/Chief Complaint cellulitis of left ankle and leg and foot. Patient lives alone. Patient in pain when walks and unable to get around except with a walker. Cellulitis of medial ankle and redness the air and pain to touch. . 12/27/16. Left foot still has swelling. Left medial ankle has redness and severe pain to palpation. Patient lives alone. Patient unable to walk and take care of himself. Patient coughing today. Patient have physical therapy. Patient put on colchicine. Diagnosis cellulitis of left leg. Diabetes. Coronary artery disease. Hyperlipidemia Diagnosis/Problems: Clinical Quality Measures DVT/VTE Risk/Contraindication: Risk Factor Score Per Nursin RFS Level Per Nursing on Admit: 4+=Very High Contraindications-Pharm: Other *list below* Contraindications-Mechi: Other *list below* Other: patient on plavix RADHA HOYOS DO Dec 27, 2016 08:05
[2016-12-27 08:12] LABS: ANION GAP 9 MMOL/L (5-14); BLOOD UREA NITROGEN 10 MG/DL (7-18); BUN/CREATININE RATIO 12; CALCIUM 8.6 MG/DL (8.5-10.1); CARBON DIOXIDE 25 MMOL/L (21-32); CHLORIDE 100 MMOL/L (98-107); CREATININE SERUM 0.84 MG/DL (0.60-1.30); GFR ESTIMATED > 60; GLUCOSE 129 MG/DL (70-105); POTASSIUM 3.4 MMOL/L (3.6-5.0); SODIUM 134 MMOL/L (135-145)
[2016-12-27] MEDS: meTOproloL SUCCINATE 50 MG (TOPROL XL) TAB PO SCH (08:45)
[2016-12-27] MEDS ORDERED: PROMETHAZINE/ CODEINE SYRUP 5 ML UDC PO PRN (08:45)
[2016-12-27] MEDS: CLOPIDOGREL 75 MG (PLAVIX) TABLET PO SCH (08:46)
[2016-12-27] MEDS: VALSARTAN 160 MG TAB PO SCH (08:47)
[2016-12-27] MEDS: FUROSEMIDE 20 MG (LASIX) TAB PO SCH (08:47)
[2016-12-27] MEDS: ASPIRIN E.C. 81 MG (ECOTRIN) TAB PO SCH (08:48)
[2016-12-27] MEDS: amLODIPine 2.5MG (NORVASC) TAB PO SCH (08:48)
[2016-12-27] MEDS ORDERED: COLCHICINE 0.6 MG (COLCRYS) TABLET PO SCH (09:00)
[2016-12-27] MEDS ORDERED: cefTRIAXone INJECTION 1,000 MG in NS (IVPB) 50 ML IV SCH (09:00)
--- NOTE | 2016-12-27 10:44 | Physical Therapy Evaluation ---
PT Evaluation-General Medical Diagnosis Admission Date Dec 24, 2016 at 11:55 Medical Diagnosis: cellulitis left foot Onset Date: Dec 24, 2016 Therapy Diagnosis Therapy Diagnosis: debility Height/Weight Height (Feet): 5 Height (Inches): 8.00 Weight (Pounds): 200 Weight (Ounces): 8.0 Precautions Precautions/Isolations: Standard Precautions Weight Bear Status Weight Bearing Restriction: Weight Bearing/Tolerated Location Restriction: LT FOOT Referral Physician: Camelia Reason for Referral: Evaluation/Treatment Medical History Pertinent Medical History: Arthritis, CAD, DM, HTN Current History redness and swelling x 5 days per patient report. Reviewed History: Yes Social History Home: Single Level Current Living Status: Children Prior/Core FIM Prior Level of Function Functional [place] Measure 0=Not Assessed/NA 4=Minimal Assistance 1=Total Assistance 5=Supervision or Setup 2=Maximal Assistance 6=Modified [place] 3=Moderate Assistance 7=Complete [place] Bed Mobility: 7 Transfers (B,C,W/C) (FIM): 7 Gait: 7 PT Evaluation-Current Subjective Patient reluctantly agrees to PT. Patient rates left ankle pain 10/10. Pain Numeric Pain Scale: 10-Worst Possible Pain Location: Left Location Body Site: Ankle Pain Description: Burning, Sharp Objective Patient Orientation: Normal For Age Problem Solving: Good ROM/Strength ROM Lower Extremities initially limited left ankle ROM due to patient, then improved to WFL during treatment right LE WFL Strenght Lower Extremities right knee flexion/extension 5/5; hip flexion 5/5 left knee flexion/extension 4/5 (limited by pain); hip flexion 5/5 Integumentary/Posture Integumentary refer to nursing notes Bowel Incontinence: No Bladder Incontinence: No Posture WNL Neuromuscular (Tone, Coordination, Reflexes) grossly intact Sensory Vision: Functional Hearing: Functional Sensation Right Lower Extremit: Intact Sensation Left Lower Extremity: Intact Transfers Functional [place] Measure 0=Not Assessed/NA 4=Minimal Assistance 1=Total Assistance 5=Supervision or Setup 2=Maximal Assistance 6=Modified [place] 3=Moderate Assistance 7=Complete [place] Transfers (B, C, W/C) (FIM): 6 Scootin Sit to/from Stand: 6 Gait Mode of Locomotion: Walk Anticipated Mode of Locomotion: Walk Gait (FIM): 6 Distance (FIM): 3=150 ft Distance: 150' Gait Level of Assist: 6 Gait Assistive Device: FWW Comments/Gait Description safe and functional with antalgic gait sequence with improvement during ambulation Balance Sitting Static: Normal Sitting Dynamic: Normal Standing Static: Normal Standing Dynamic: Normal Assessment/Needs 81 y.o. male, will benefit from short term skilled PT to ensure safe return to home with son. Patient is currently limited by pain left LE. Rehab Potential: Good PT Short Term Goals Short Term Goals Time Frame: Dec 28, 2016 Transfers (B,C,W/C) (FIM): 6 Gait (FIM): 6 Distance (FIM): 3=150 ft Gait Level of Assist: 6 Gait Assistive Device: FWW PT Plan Treatment/Plan Treatment Plan: Continue Plan of Care Treatment Plan: Functional Activity [place], Functional Strength, Gait Treatment Duration: Dec 28, 2016 # of days/week 1-2 Visits Per Week: 1-2 Pt/Family Agrees w/Plan: Yes Safety Risks/Education Patient Education: Gait Training Teaching Recipient: Patient Teaching Methods: Demonstration, Discussion Response to Teaching: Verbalize Understanding, Return Demonstration Discharge Recommendations Therapy D/C Recommendations: Home w/ Family Support Equpiment Recommendations-D/C: Front Wheeled Walker (SW notified) Time/GCodes Time In: 1005 Time Out: 1020 Total Billed Treatment Time: 15 Total Billed Treatment 1 visit EVModC 15 min G Codes Necessary: Yes PT/OT Therapy GCodes Therapy Functional Limitation: Physical Therapy Test(s)/Tool used to determine: LEFS Functional Limitation-Current Charge Code: MOBCUR Modifier: CI Functional Limitation-Goal Charge Code: MOBGOAL Modifier: CI CAS BARRIENTOS PT Dec 27, 2016 10:43
[2016-12-27] MEDS ORDERED: TROUGH ORDER-PHARMACY XX NR (11:00)
[2016-12-27] MEDS: VANCOMYCIN 1250 MG/NS 250 ML IVPB IV SCH ×2 (12:55)
--- NOTE | 2016-12-27 13:01 | Diagnostic Imaging Report ---
PA and lateral chest at 9:46 AM. INDICATION: Cough and congestion. Heart size is within normal limits and stable when compared to 01/27/2010. The lungs are clear. There is no sign of failure, pneumonia, or pleural effusion. The mediastinum is not widened. The osseous structures are intact. IMPRESSION: There is no evidence for active disease. Dictated by: Dictated on workstation # [id number]
[2016-12-27] MEDS ORDERED: COLC0.6C3 PO (14:32)
[2016-12-27] MEDS ORDERED: CEFD300C3 PO (14:32)
[2016-12-27 15:30] VITALS: BP 148/68
--- NOTE | 2016-12-30 07:16 | Clinic Account Progress/Dx ---
Clinic Account Progress/Dx DIAGNOSIS: Diagnosis cellulitis of left leg. Cellulitis of left foot. Diabetes. Hypertension history. Hyperlipidemia history RADHA HOYOS DO Dec 30, 2016 07:16
== END 2016-12-27 14:18 | disposition home or self-care (01) ==
LOC: UNDOADMOB 11:17 → 4TH 11:17
PROVIDERS: ADMIT Family Medicine; ATTEND Family Medicine
DX: L03.116 Cellulitis of left lower limb (principal); E11.9 Type 2 diabetes mellitus without complications; Z79.84 Long term (current) use of oral hypoglycemic drugs; M10.9 Gout, unspecified; I10 Essential (primary) hypertension; E78.5 Hyperlipidemia, unspecified; I25.10 Atherosclerotic heart disease of native coronary artery without angina pectoris
CPT/HCPCS: 36415; 71020; 73610; 73630; 80048; 80053; 80202; 82962; 85025; 87040; 99211; G0378

== ENCOUNTER 2021-01-07 16:03 | Inpatient (IN) | payer MEDICARE, OTHER ==
[~2021-01-07] VITALS: Ht 182 cm; Wt 84.7 kg
[~2021-01-07 16:03] MED LIST changes: +ACHD5005 PO; -AMLO2.5T PO; +AMLO2.5T4 PO; +CANA100T PO; +CARB1TAB19 PO; +CEFD300C3 PO; +COLC0.6C3 PO; +FURO20TA4 PO; +GLIM4TAB5 PO; +METF-397 PO; +METO50TA7 PO; +SULF1TAB35 PO; -VALS160T28 PO; +VALS160T29 PO
[2021-01-07] MEDS ORDERED: CEFEPIME INJECTION 1,000 MG in WATER (STERILE) FOR INJECTION 10 ML IV ONE (16:15)
--- NOTE | 2021-01-07 16:20 | ED Neurological Problem ---
General Stated Complaint: STROKE Source: patient, family, EMS Exam Limitations: clinical condition (MARICRUZ RODRÍGUEZ) History of Present Illness Date Seen by Provider: Jan 07, 2021 Time Seen by Provider: 16:03 Initial Comments Lisa presents ER by EMS from home with chief complaint of last known well time 1 hour prior to arrival at 1500. Patient was slumped over to his right side has right facial droop and has no history of stroke but he does have a history of Parkinson's and dementia. He got his second dose of Covid vaccine 2 days ago and yesterday was having headache, irritability and diarrhea as well as increased somnolence throughout the day. He is a diabetic and blood sugar was 79 per EMS. Daughter clarifies the patient has not been having any fever and the diarrhea is chronic. Some head aches and irritability however yesterday they thought was related to the second dose of his Covid vaccine. The patient has a remote traumatic injury to the right eye. No recent trauma. Family states that both the patient and his live at home and are fairly active and self-sufficient. He is ambulatory at baseline. He is conversational at baseline. He has made it clear in the past that he does not wish to be resuscitated in the event his heart were to stop and would be allow natural or DNR. They are very against being intubated for any reason however would consider potentially an intubation for a procedure. (MARICRUZ RODRÍGUEZ) Allergies and Home Medications Allergies Coded Allergies: meperidine (Verified Allergy, Mild, 01/11/09) Home Medications Amlodipine Besylate 2.5 Mg Tablet, 2.5 MG PO DAILY, (Reported) Aspirin 81 Mg Tabec, 81 MG PO DAILY, (Reported) Canagliflozin 100 Mg Tablet, 100 MG PO DAILY, (Reported) Carbidopa/Levodopa 1 Each Tablet, 2 TAB PO BID WITH MEALS, (Reported) Cefdinir 300 Mg Capsule, 300 MG PO BID Prescribed by: CARLA PANDYA on 12/27/16 143 Clopidogrel Bisulfate 75 Mg Tablet, 75 MG PO DAILY, (Reported) Colchicine 0.6 Mg Capsule, 0.6 MG PO BID Prescribed by: CARLA PANDYA on 12/27/16 1432 Furosemide 20 Mg Tablet, 20 MG PO DAILY, (Reported) Glimepiride 4 Mg Tablet, 4 MG PO BIDAC, (Reported) Hydrocodone Bit/Acetaminophen 1 Each Tablet, 1 TAB PO TID PRN for PAIN, (Reported) Metformin HCl 500 Mg Tablet, 500 MG PO DAILY AT SUPPERTIME Prescribed by: CARLA PANDYA on 12/26/161740 Metformin HCl 500 Mg Tablet, 500 MG PO DAILY Prescribed by: CARLA PANDYA on 12/26/161740 Metoprolol Succinate 50 Mg Tab.er.24h, 50 MG PO DAILY, (Reported) Valsartan 160 Mg Tablet, 160 MG PO DAILY, (Reported) Patient Home Medication List Home Medication List Reviewed: Yes (MARICRUZ RODRÍGUEZ) Review of Systems Review of Systems Constitutional: No chills, No diaphoresis, No fever Eyes: See HPI, Blindness (Right eye, chronic); Denies Blurred Vision, Denies Drainage Ears, Nose, Mouth, Throat: denies ear pain, denies ear discharge Respiratory: No cough, No short of breath Cardiovascular: No chest pain, No edema, No Hx of Intervention, No palpitations, No syncope, No vascular heart diseas Gastrointestinal: No abdominal pain, No nausea, No vomiting Genitourinary: No discharge, No dysuria (MARICRUZ RODRÍGUEZ) All Other Systems Reviewed Negative Unless Noted: Yes (MARICRUZ RODRÍGUEZ) Past Pylkped-Eddrpq-Ogagpz Hx Patient Social History Alcohol Use: Denies Use Drug of Choice: Denies Smoking Status: Former Smoker Former Smoker, Quit: Jun 10, 1969 Recent Hopitalizations: No (MARICRUZ RODRÍGUEZ) Immunizations Up To Date Tetanus Booster (TDap): Unknown Date of Pneumonia Vaccine: Aug 03, 2012 Date of Influenza Vaccine: Aug 04, 2016 (MARICRUZ RODRÍGUEZ) Seasonal Allergies Seasonal Allergies: No (MARICRUZ RODRÍGUEZ) Past Medical History Surgeries: Yes (SKIN LESION) Appendectomy, Gallbladder Respiratory: No Pneumonia Cardiac: Yes Neurological: Yes Reproductive Disorders: No Sexually Transmitted Disease: Yes HIV/AIDS: No Gastrointestinal: Yes Chronic Constipation Musculoskeletal: Yes Arthritis Endocrine: Yes Diabetes, Non-Insulin dep Cataract Loss of Vision: Right Hearing Impairment: Denies Cancer: Yes Skin Psychosocial: No Integumentary: Yes (HISTORY OF RIGHT FOOT CELLULITIS 2008--MRSA. ALSO HX OF TINEA PEDIS) Recent Skin Changes Blood Disorders: No Adverse Reaction/Blood Tranf: No (MARICRUZ RODRÍGUEZ) Family Medical History Alzheimer's disease Cardiovascular disease Diabetes mellitus Physical Exam Vital Signs Vital Signs - First Documented 01/07/21 16:04 Temp 35.7 Pulse 64 Resp 28 B/P (MAP) 158/75 (102) Pulse Ox 98 O2 Delivery Room Air (FREIDA MAURICE DO) Vital Signs Capillary Refill : (MARICRUZ RODRGÍUEZ) Height, Weight, BMI Height: 5'8.00" Weight: 200lbs. 8.0oz. 90.741177nr; 30.5 BMI Method:Stated General Appearance: moderate distress, other (Chronic illness) HEENT: other (Right eye with scarring, left eye 3 mm and reactive to light) Neck: non-tender, full range of motion, supple, normal inspection Respiratory: lungs clear, normal breath sounds, no respiratory distress, no accessory muscle use Cardiovascular: normal peripheral pulses, regular rate, rhythm Peripheral Pulses: 2+ Dorsalis Pedis (R), 2+ Left Dors-Pedis (L), 2+ Radial Pulses (R), 2+ Radial Pulses (L) Gastrointestinal: non tender, soft Extremities: non-tender, normal inspection, no pedal edema, normal capillary refill Neurologic/Psychiatric: alert, motor weakness (No movement on the right lower extremity, 3 out of 5 motor strength right upper extremity), sensory deficit ( Decreased sensation right lower extremity and right upper extremity.), other (Oriented to self and follows some simple commands with the left side of his face and arm) Crainal Nerves: normal hearing, abnormal speech (Severe aphasia and dysarthria), facial asymmetry (Right-sided facial droop) Skin: normal color, warm/dry (MARICRUZ RODRÍGUEZ) Stroke Onset of Symptoms Date of Onset of Symptoms: Jan 07, 2021 Time of Symptom Onset: 15:00 Onset of Symptoms: Yes Symptoms onset unknown: No (MARICRUZ RODRÍGUEZ) NIH Stroke Scale Assessment Select: Initial Level of Consciousness: 2=By repeated stimulation (2), Level of Consciousness-Questions: 2=Answer neither question (2), LOC Commands: 2=Performs neither task (2), Gaze: Normal (0), Visual Watkins: 2=Complete hemianopia (2), Facial Movement (Facial Paresis): 3=Complete paralysis Right (3), Motor Function-Arms Right: 2=Some effort/gravity (2), Motor Function- Arms Left: 0=No drift (0), Motor Function-Legs Right: 4=No movement (4), Motor Function-Legs Left: 0=No drift (0), Limb Ataxia: 0=Absent (0), Sensory: 1=Mild to Moderate loss Right sided sensory loss upper and lower extremity (1), Best Language: 2=Severe aphasia (2), Dysarthria: 2=Severe dysarthria (2), Extinction & Inattention: 2=ProfoundHemiInattention (2), Total: 24 Stroke Thrombolytic Exclusion Age 18 or Over: Yes Acute intenal hemorrhage: No History of CVA: No Uncontrolled Coagulation Defec: No Intracranial Hemorrhage: No Severe Hypertension: No GI or Bleed: No Subarachnoid Hemorrhage: No Intracranial Neoplasm/Aneurysm: No Oral Anticoagulants: No (Aspirin only) Surgery or Trauma: No Puncture of Non-Compressible V: No Recent CPR: No Diabetic Hemorrhagic Retinopat: No Organ Biopsy: No Recent Obstetric Delivery: No Glucose: No (86) Significant Hepatic Dysfunctio: No NIH Stoke Scale >22: No Bacterial Endocarditis: No Pericarditis: No Improving Symptoms: No Platelets: No TPA Contraindication: No (MARICRUZ RODRÍGUEZ) Stroke Onset of Symptoms Date of Onset of Symptoms: Jan 07, 2021 Time of Symptom Onset: 15:00 Onset of Symptoms: Yes Symptoms onset unknown: No (MARICRUZ RODRÍGUEZ) NIH Stroke Scale Assessment Select: Other post TPA 1714 Level of Consciousness: 0=Alert (0), Level of Consciousness-Questions: 1=Answers one question (1), LOC Commands: 0=Performs both tasks (0), Gaze: Normal (0), Visual Watkins: 2=Complete hemianopia (2), Facial Movement (Facial Paresis): 2=Partial paralysis Right (2), Motor Function-Arms Right: 0=No drift (0), Motor Function-Arms Left: 0=No drift (0), Motor Function-Legs Right: 3=No effort/gravity (3), Motor Function-Legs Left: 0=No drift (0), Limb Ataxia: 0=Absent (0), Sensory: 0=Normal:no loss (0), Best Language: 1=Mild to moderat aphasia (1), Dysarthria: 1=Mild to moderate loss (1), Extinction & Inattention: 0=No abnormality (0), Total: 10 Stroke Thrombolytic Exclusion Age 18 or Over: Yes Acute intenal hemorrhage: No History of CVA: No Uncontrolled Coagulation Defec: No Intracranial Hemorrhage: No Severe Hypertension: No GI or Bleed: No Subarachnoid Hemorrhage: No Intracranial Neoplasm/Aneurysm: No Oral Anticoagulants: No (Aspirin only) Surgery or Trauma: No Puncture of Non-Compressible V: No Recent CPR: No Diabetic Hemorrhagic Retinopat: No Organ Biopsy: No Recent Obstetric Delivery: No Glucose: No (86) Significant Hepatic Dysfunctio: No NIH Stoke Scale >22: No Bacterial Endocarditis: No Pericarditis: No Improving Symptoms: No Platelets: No TPA Contraindication: No (MARICRUZ RODRÍGUEZ) Progress/Results/Core Measures Results/Orders Lab Results Laboratory Tests Test 01/07/21 16:05 01/07/21 16:07 01/07/21 16:55 Range/Units White Blood Count 6.7 4.3-11.0 10^3/uL Red Blood Count 4.45 4.30-5.52 10^6/uL Hemoglobin 14.2 13.3-17.7 g/dL Hematocrit 43 40-54 % Mean Corpuscular Volume 96 80-99 fL Mean Corpuscular Hemoglobin 32 25-34 pg Mean Corpuscular Hemoglobin Concent 33 32-36 g/dL Red Cell Distribution Width 13.5 10.0-14.5 % Platelet Count 209 130-400 10^3/uL Mean Platelet Volume 9.8 9.0-12.2 fL Immature Granulocyte % (Auto) 0 % Neutrophils (%) (Auto) 55 42-75 % Lymphocytes (%) (Auto) 33 12-44 % Monocytes (%) (Auto) 8 0-12 % Eosinophils (%) (Auto) 4 0-10 % Basophils (%) (Auto) 0 0-10 % Neutrophils # (Auto) 3.7 1.8-7.8 10^3/uL Lymphocytes # (Auto) 2.2 1.0-4.0 10^3/uL Monocytes # (Auto) 0.5 0.0-1.0 10^3/uL Eosinophils # (Auto) 0.2 0.0-0.3 10^3/uL Basophils # (Auto) 0.0 0.0-0.1 10^3/uL Immature Granulocyte # (Auto) 0.0 0.0-0.1 10^3/uL Prothrombin Time 13.8 12.2-14.7 SEC INR Comment 1.0 0.8-1.4 Activated Partial Thromboplast Time 25 24-35 SEC D-Dimer 0.52 H 0.00-0.49 UG/ML Sodium Level 142 135-145 MMOL/L Potassium Level 3.6 3.6-5.0 MMOL/L Chloride Level 105 98-107 MMOL/L Carbon Dioxide Level 23 21-32 MMOL/L Anion Gap 14 5-14 MMOL/L Blood Urea Nitrogen 23 H 7-18 MG/DL Creatinine 1.37 H 0.60-1.30 MG/DL Estimat Glomerular Filtration Rate 49 BUN/Creatinine Ratio 17 Glucose Level 92 70-105 MG/DL Calcium Level 8.8 8.5-10.1 MG/DL Corrected Calcium 8.7 8.5-10.1 MG/DL Total Bilirubin 0.6 0.1-1.0 MG/DL Aspartate Amino Transf (AST/SGOT) 21 5-34 U/L Alanine Aminotransferase (ALT/SGPT) 8 0-55 U/L Alkaline Phosphatase 44 40-136 U/L Troponin I < 0.028 <0.028 NG/ML Total Protein 6.6 6.4-8.2 GM/DL Albumin 4.1 3.2-4.5 GM/DL Glucometer 86 70-110 MG/DL Urine Color YELLOW Urine Clarity CLEAR Urine pH 5.5 5-9 Urine Specific Mccleary 1.020 1.016-1.022 Urine Protein NEGATIVE NEGATIVE Urine Glucose (UA) 3+ H NEGATIVE Urine Ketones NEGATIVE NEGATIVE Urine Nitrite NEGATIVE NEGATIVE Urine Bilirubin NEGATIVE NEGATIVE Urine Urobilinogen 0.2 < = 1.0 MG/DL Urine Leukocyte Esterase NEGATIVE NEGATIVE Urine RBC (Auto) NEGATIVE NEGATIVE Urine RBC NONE /HPF Urine WBC NONE /HPF Urine Squamous Epithelial Cells 0-2 /HPF Urine Crystals NONE /LPF Urine Bacteria TRACE /HPF Urine Casts NONE /LPF Urine Mucus NEGATIVE /LPF Urine Culture Indicated CULTURE PENDING (FREIDA MAURICE DO) Medications Given in ED Current Medications Medications Dose Ordered Sig/Sylvester Route Start Time Stop Time Status Last Admin Dose Admin Alteplase, Recombinant (0.9mg/ kg-max 90mg) with ... 1656 ONCE IV 01/07/21 16:56 01/07/21 16:58 DC 01/07/21 16:56 70 MG Iohexol 75 ml ONCE ONCE IV 01/07/21 17:00 01/07/21 17:01 DC 01/07/21 17:38 75 ML Sodium Chloride 100 ml ONCE ONCE IV 01/07/21 17:00 01/07/21 17:01 DC 01/07/21 17:39 80 ML (FREIDA MAURICE DO) Vital Signs/I&O 01/07/21 16:04 Temp 35.7 Pulse 64 Resp 28 B/P (MAP) 158/75 (102) Pulse Ox 98 O2 Delivery Room Air (FREIDA MAURICE DO) FSBG Bedside Testing Finger Stick Blood Glucose: 86 Blood Glucose Action Taken: RN AND PROVIDER NOTIFIED (MARICRUZ RODRÍGUEZ) Progress Progress Note #1: Time: 16:53 Progress Note Helicopter is on standby pending results of a CT angiogram. We are proceeding with TPA with wishes of family and patient. Progress Note #2: Time: 18:10 Progress Note Significant improvement see the NIH from 1715. TPA was initiated at 1656. Patient is alert oriented x2 and able to speak for himself. He says he would not want to do a embolectomy at [facility] if it was offered. Helicopter was called off. Plan to transfer care to Dr. Maurice and admit him locally under the care of his primary care provider, Dr. Rufino Mann. (MARICRUZ RODRÍGUEZ) Progress Note : Progress Note 1800-ASSUMED CARE FROM DR. RODRÍGUEZ. PT IS SIGNIFICANTLY IMPROVED AFTER TPA, NIH NOW 10. DR. RODRÍGUEZ HAS DISCUSSED WITH PT AND HE ADAMANTLY DOES NOT WANT ANY TYPE OF INTERVENTION DONE OR ANYTHING THAT REQUIRES INTUBATION (FREIDA MAURICE DO) Initial ECG Impression Date: Jan 07, 2021 Initial ECG Impression Time: 16:40 Initial ECG Rate: 65 Initial ECG Rhythm: Normal Sinus Initial ECG Intervals: QT (477) Initial ECG Impression: Normal, Nonspecific Changes Comment Normal sinus rhythm with left bundle branch block. No clinically relevant ST changes. (MARICRUZ RODRÍGUEZ) Diagnostic Imaging Diagonstic Imaging: CT Plain Films/CT/US/NM/MRI: head Comments [facility] [place] NAME: ANGELITA FOX [facility] REC#: [id number] PT STATUS: REG ER : 1935 PHYSICIAN: KRISTINE WELLS APRN ADMIT DATE: 01/07/21/ER Signed Date of Exam:01/07/21 CT HEAD WO-R/O STROKE PROCEDURE: CT head w/o r/o stroke. TECHNIQUE: Multiple contiguous axial images were obtained through the brain without the use of intravenous contrast. Auto Exposure Controls were utilized during the CT exam to meet ALARA standards for radiation dose reduction. INDICATION: STROKE. COMPARISON: None available. FINDINGS: Moderate atrophy. No intracranial hemorrhage. No intracranial mass, mass effect, midline shift, herniation, obstructive hydrocephalus or suspicious extra-axial fluid collection. 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 Additional patchy hypodensities are identified within the bilateral basal ganglia, left greater than right. No additional CT evidence of a large acute geographic ischemic infarction. The left ocular lens is absent. The right globe is small with peripheral hyperdensity is present. The orbits are otherwise unremarkable. The paranasal sinuses are clear. The calvarium and extracalvarial soft tissues are unremarkable. IMPRESSION: 1. Multiple patchy hypodensities within the bilateral basal ganglia are present, felt to relate to age-indeterminate though favored chronic lacunar infarctions. If further evaluation is desired, MRI of the brain would be recommended. 2. 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 3. Abnormal appearance of the right globe likely relates to remote trauma or surgery. Dictated by: Dictated on workstation # [id number] Dict: 01/07/21 1617 Trans: 01/07/21 1639 [facility] [id number] Interpreted by: MAHNAZ FARIAS MD Electronically signed by: AMHNAZ FARIAS MD 01/07/211638 Reviewed: Reviewed by Me Diagonstic Imaging: Xray Plain Films/CT/US/NM/MRI: chest Comments [facility] [place], [place] NAME: ANGELITA FOX [facility] REC#: [id number] PT STATUS: REG ER : 1935 PHYSICIAN: MARICRUZ RODRÍGUEZ MD ADMIT DATE: 01/07/21/ER Draft Date of Exam:01/07/21 CHEST 1 VIEW, AP/PA ONLY INDICATION: Sepsis. TECHNIQUE: Single view chest 4:11 PM. CORRELATION STUDY: 12/27/2016. FINDINGS: Heart size is borderline enlarged but generally stable given difference in technique. Vasculature within normal limits. The lungs are clear with no consolidating infiltrate. There is no significant effusion or pneumothorax. IMPRESSION: Borderline heart size without evidence for failure, otherwise acute findings. Dictated on workstation # [id number] Dict: 01/07/21 1620 Trans: 01/07/21 1624 [facility] [id number] Interpreted by: RENATO ELIAS DO Electronically signed by: Reviewed: Reviewed by Me Diagonstic Imaging: CT (Angiogram) Plain Films/CT/US/NM/MRI: head (Head and neck) Reviewed: Reviewed by Me (MARICRUZ RODRÍGUEZ) Diagonstic Imaging: CT (Angiogram) Comments CT ANGIOGRAM HEAD/NECK--PER RADIOLOGIST REPORT FINDINGS: Brachycephalic origins are widely patent. Vertebral arteries are both widely patent. Basilar artery is widely patent. The common, internal and external carotid arteries are both widely patent. There is some atherosclerotic plaque seen at both carotid bifurcations. Intracranial portions of internal carotid arteries are patent. Anterior cerebral arteries are widely patent. Middle cerebral arteries appear to be patent. Postcontrast images do not show any abnormal areas of enhancement. IMPRESSION: Mild atherosclerosis. No CT evidence of large vessel occlusion or acute cerebral infarct. (FREIDA MAURICE DO) Consults : Consults Notes Dr Mota: Stroke neurologist on-call at [facility] recommends at this time if the family is in agreement that this is what the patient would want we should do TPA and get a CT angiogram. We have discussed TPA benefits and risks with the family and explained to them that his risk of bleeding is greater than 3% probably closer to 5 or more percent because of the extent of his stroke and they are still in agreement with TPA. They think he would want any chance he could get including clot retrieval but they feel strongly he and his both did not ever want to be intubated if they could avoid it. At this time he is a DNR/DNI. We are pursuing TPA and then will get a CT angiogram. (MARICRUZ RODRÍGUEZ) Departure Communication (Admissions) 183--SPOKE WITH DR. Kaleigh MANN. ACCEPTS PT FOR ADMIT (FREIDA MAURICE DO) Impression Primary Impression: CVA (cerebral vascular accident) Qualified Codes: I63.9 - Cerebral infarction, unspecified Additional Impression: Received intravenous tissue plasminogen activator (tPA) in emergency department Disposition: ADMITTED INPATIENT Condition: Stable Admissions Decision to Admit Reason: Admit from ER (General) Decision to Admit/Date: Jan 07, 2021 Time/Decision to Admit Time: 18:00 (MARICRUZ RODRÍGUEZ) Departure-Patient Inst. Referrals: RADHA HOYOS DO (PCP/Family) Primary Care Physician MARICRUZ RODRÍGUEZ Jan 07, 2021 16:19 FREIDA MAURICE DO Jan 07, 2021 18:51
[2021-01-07 16:21] LABS: BASOPHILS % (AUTO) 0 % (0-10); EOSINOPHILS # (AUTO) 0.2 10^3/uL (0.0-0.3); EOSINOPHILS % (AUTO) 4 % (0-10); HEMATOCRIT 43 % (40-54); HEMOGLOBIN 14.2 g/dL (13.3-17.7); LYMPHOCYTES # (AUTO) 2.2 10^3/uL (1.0-4.0); LYMPHOCYTES % (AUTO) 33 % (12-44); MEAN CORPUSCULAR HEMOGLOBIN 32 pg (25-34); MEAN CORPUSCULAR HGB CONC 33 g/dL (32-36); MEAN CORPUSCULAR VOLUME 96 fL (80-99); MEAN PLATELET VOLUME 9.8 fL (9.0-12.2); MONOCYTES # (AUTO) 0.5 10^3/uL (0.0-1.0); MONOCYTES % (AUTO) 8 % (0-12); NEUTROPHILS # (AUTO) 3.7 10^3/uL (1.8-7.8); NEUTROPHILS % (AUTO) 55 % (42-75); PLATELET COUNT 209 10^3/uL (130-400); WHITE BLOOD COUNT 6.7 10^3/uL (4.3-11.0)
[2021-01-07 16:22] LABS: ALBUMIN 4.1 GM/DL (3.2-4.5)
[2021-01-07 16:23] LABS: CHLORIDE 105 MMOL/L (98-107); POTASSIUM 3.6 MMOL/L (3.6-5.0); SODIUM 142 MMOL/L (135-145)
[2021-01-07 16:24] LABS: CALCIUM 8.8 MG/DL (8.5-10.1)
--- NOTE | 2021-01-07 16:24 | Diagnostic Imaging Report ---
INDICATION: Sepsis. TECHNIQUE: Single view chest 4:11 PM. CORRELATION STUDY: 12/27/2016. FINDINGS: Heart size is borderline enlarged but generally stable given difference in technique. Vasculature within normal limits. The lungs are clear with no consolidating infiltrate. There is no significant effusion or pneumothorax. IMPRESSION: Borderline heart size without evidence for failure, otherwise acute findings. Dictated by: Dictated on workstation # [id number]
[2021-01-07 16:25] LABS: GLUCOSE 92 MG/DL (70-105); TOTAL PROTEIN 6.6 GM/DL (6.4-8.2)
[2021-01-07 16:26] LABS: CARBON DIOXIDE 23 MMOL/L (21-32)
[2021-01-07 16:27] LABS: BILIRUBIN,TOTAL 0.6 MG/DL (0.1-1.0)
[2021-01-07 16:28] LABS: ALKALINE PHOSPHATASE 44 U/L (40-136); FIBRIN DEGRADATION PRODUCTS 0.52 UG/ML (0.00-0.49); PROTHROMBIN TIME PATIENT 13.8 SEC (12.2-14.7)
[2021-01-07 16:29] LABS: CREATININE SERUM 1.37 MG/DL (0.60-1.30); GFR ESTIMATED 49
[2021-01-07 16:30] LABS: BUN/CREATININE RATIO 17
[2021-01-07 16:31] LABS: ALANINE AMINOTRANSFERASE 8 U/L (0-55)
--- NOTE | 2021-01-07 16:31 | Diagnostic Imaging Report ---
PROCEDURE: CT head w/o r/o stroke. TECHNIQUE: Multiple contiguous axial images were obtained through the brain without the use of intravenous contrast. Auto Exposure Controls were utilized during the CT exam to meet ALARA standards for radiation dose reduction. INDICATION: STROKE. COMPARISON: None available. FINDINGS: Moderate atrophy. No intracranial hemorrhage. No intracranial mass, mass effect, midline shift, herniation, obstructive hydrocephalus or suspicious extra-axial fluid collection. 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 Additional patchy hypodensities are identified within the bilateral basal ganglia, left greater than right. No additional CT evidence of a large acute geographic ischemic infarction. The left ocular lens is absent. The right globe is small with peripheral hyperdensity is present. The orbits are otherwise unremarkable. The paranasal sinuses are clear. The calvarium and extracalvarial soft tissues are unremarkable. IMPRESSION: 1. Multiple patchy hypodensities within the bilateral basal ganglia are present, felt to relate to age-indeterminate though favored chronic lacunar infarctions. If further evaluation is desired, MRI of the brain would be recommended. 2. 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 3. Abnormal appearance of the right globe likely relates to remote trauma or surgery. Dictated by: Dictated on workstation # [id number]
[2021-01-07] MEDS ORDERED: ALTEPLASE 100 MG/VIAL (ACTIVASE) ONE (16:42)
[2021-01-07] MEDS ORDERED: ALTEPLASE 100 MG/VIAL (ACTIVASE) IV ONE (16:56)
[2021-01-07] MEDS ORDERED: NS 100 ML (IVPB) BAG IV ONE (17:00)
[2021-01-07] MEDS ORDERED: IOHEXOL 350 MG/ML 100 ML (OMNIPAQUE 350) VIAL IV ONE (17:00)
[2021-01-07] MEDS ORDERED: HOLD METFORMIN - RECEIVED CONTRAST 20 ML VIAL IV SCH (17:00)
[2021-01-07 17:04] LABS: BILIRUBIN,URINE NEGATIVE (NEGATIVE); CLARITY,URINE CLEAR; COLOR,URINE YELLOW; GLUCOSE, URINE (UA) 3+ (NEGATIVE); KETONES,URINE NEGATIVE (NEGATIVE); LEUKOCYTE ESTERASE ,URINE NEGATIVE (NEGATIVE); NITRITE,URINE NEGATIVE (NEGATIVE); PH,URINE 5.5 (5-9); PROTEIN,URINE NEGATIVE (NEGATIVE)
[2021-01-07 17:11] LABS: BACTERIA,URINE TRACE /HPF; SQUAMOUS EPITHELIAL CELL,UR 0-2 /HPF
--- NOTE | 2021-01-07 17:54 | Diagnostic Imaging Report ---
PROCEDURE: CT angiography of the head and CT angiography of the neck with and without contrast. TECHNIQUE: Contiguous noncontrast images were obtained from the skull base through the vertex. After intravenous contrast administration, helical CT angiography of the neck was performed. Source data was reformatted into 3D MIP projections. Delayed post contrast acquisition was also obtained. Auto Exposure Controls were utilized during the CT exam to meet ALARA standards for radiation dose reduction. INDICATION: CVA, altered mental status. FINDINGS: Brachycephalic origins are widely patent. Vertebral arteries are both widely patent. Basilar artery is widely patent. The common, internal and external carotid arteries are both widely patent. There is some atherosclerotic plaque seen at both carotid bifurcations. Intracranial portions of internal carotid arteries are patent. Anterior cerebral arteries are widely patent. Middle cerebral arteries appear to be patent. Postcontrast images do not show any abnormal areas of enhancement. IMPRESSION: Mild atherosclerosis. No CT evidence of large vessel occlusion or acute cerebral infarct. Dictated by: Dictated on workstation # [id number]
[2021-01-07] MEDS: NS IV 1000 ML 1,000 ML IV SCH (17:56)
[2021-01-07] MEDS ORDERED: D5 1/2 NS 1000 ML IV SOLUTION 1,000 ML IV ONE (19:18)
[2021-01-07] MEDS: D5 1/2 NS W/KCL 20 MEQ/L 1,000 ML IV SCH (19:56)
[2021-01-08] MEDS ORDERED: niCARdipine IV 50 MG in NS (IVPB) 230 ML IV SCH (02:00)
[2021-01-08 03:33] LABS: BASOPHILS # (AUTO) 0.1 10^3/uL (0.0-0.1); BASOPHILS % (AUTO) 0 % (0-10); EOSINOPHILS # (AUTO) 0.2 10^3/uL (0.0-0.3); EOSINOPHILS % (AUTO) 2 % (0-10); HEMATOCRIT 43 % (40-54); LYMPHOCYTES # (AUTO) 3.5 10^3/uL (1.0-4.0); LYMPHOCYTES % (AUTO) 29 % (12-44); MEAN CORPUSCULAR HEMOGLOBIN 32 pg (25-34); MEAN CORPUSCULAR HGB CONC 35 g/dL (32-36); MEAN CORPUSCULAR VOLUME 93 fL (80-99); MEAN PLATELET VOLUME 9.8 fL (9.0-12.2); MONOCYTES # (AUTO) 1.1 10^3/uL (0.0-1.0); MONOCYTES % (AUTO) 9 % (0-12); NEUTROPHILS # (AUTO) 6.9 10^3/uL (1.8-7.8); NEUTROPHILS % (AUTO) 59 % (42-75); PLATELET COUNT 214 10^3/uL (130-400); WHITE BLOOD COUNT 11.8 10^3/uL (4.3-11.0)
[2021-01-08 03:40] LABS: ALBUMIN 4.2 GM/DL (3.2-4.5); CHLORIDE 103 MMOL/L (98-107); POTASSIUM 3.1 MMOL/L (3.6-5.0); SODIUM 140 MMOL/L (135-145)
[2021-01-08 03:41] LABS: CALCIUM 8.7 MG/DL (8.5-10.1)
[2021-01-08 03:42] LABS: TRIGLYCERIDES 127 MG/DL (<150); VLDL CHOLESTEROL 25 MG/DL (5-40)
[2021-01-08 03:43] LABS: CARBON DIOXIDE 23 MMOL/L (21-32); TOTAL PROTEIN 6.7 GM/DL (6.4-8.2)
[2021-01-08 03:46] LABS: ALKALINE PHOSPHATASE 39 U/L (40-136); GFR ESTIMATED > 60; PHOSPHORUS 3.1 MG/DL (2.3-4.7)
[2021-01-08 03:47] LABS: CHOLESTEROL 116 MG/DL (< 200)
[2021-01-08 03:48] LABS: BUN/CREATININE RATIO 18; HDL CHOLESTEROL 35 MG/DL (40-60)
[2021-01-08 03:49] LABS: ALANINE AMINOTRANSFERASE 19 U/L (0-55); MAGNESIUM 1.9 MG/DL (1.6-2.4)
[2021-01-08 03:52] LABS: GLUCOSE 52 MG/DL (70-105)
[2021-01-08] MEDS ORDERED: DEXTROSE 50% 50 ML (IMS) SYR ONE (03:57)
[2021-01-08] MEDS ORDERED: POTASSIUM CL 10MEQ/50ML IVPB 200 ML IV ONE (03:57)
[2021-01-08] MEDS ORDERED: DEXTROSE 50% 50 ML (IMS) SYR IV ONE (04:00)
[2021-01-08] MEDS: POTASSIUM CL 10MEQ/50ML IVPB 50 ML IV SCH ×5 (04:16→08:03)
[2021-01-08] MEDS: KCL 20 MEQ TAB (K-DUR) PO SCH (04:23)
[2021-01-08] MEDS: MAGNESIUM 1 GM/100 ML IVPB 100 ML IV SCH (04:23)
[2021-01-08] MEDS: D5 1/2 NS W/KCL 20 MEQ/L 1,000 ML IV SCH ×3 (04:43→17:33)
--- NOTE | 2021-01-08 04:54 | Pulmonary Consultation ---
History of Present Illness History of Present Illness Date Seen by Provider: Jan 08, 2021 Time Seen by Provider: 04:49 Date of Admission History of Present Illness 85yo with hx of Parkinson's and dementia presented to ED after being found slumped over in his chair and right facial droop. No prior hx like this in the past. NIH upon admission was 25. He is s/p TPA. NIH and now 17. No signs of fever, diarrhea. The patient has a remote traumatic injury to the right eye. Pt's sympjtoms have improved however he is weaker on the right side. Allergies and Home Medications Allergies Coded Allergies: meperidine (Verified Allergy, Mild, 01/11/09) Home Medications Amlodipine Besylate 2.5 Mg Tablet, 2.5 MG PO DAILY, (Reported) Aspirin 81 Mg Tabec, 81 MG PO DAILY, (Reported) Canagliflozin 100 Mg Tablet, 100 MG PO DAILY, (Reported) Carbidopa/Levodopa 1 Each Tablet, 2 TAB PO BID WITH MEALS, (Reported) Cefdinir 300 Mg Capsule, 300 MG PO BID Prescribed by: CARLA PANDYA on 12/27/16 1432 Clopidogrel Bisulfate 75 Mg Tablet, 75 MG PO DAILY, (Reported) Colchicine 0.6 Mg Capsule, 0.6 MG PO BID Prescribed by: CARLA PANDYA on 12/27/16 1432 Furosemide 20 Mg Tablet, 20 MG PO DAILY, (Reported) Glimepiride 4 Mg Tablet, 4 MG PO BIDAC, (Reported) Hydrocodone Bit/Acetaminophen 1 Each Tablet, 1 TAB PO TID PRN for PAIN, (Reported) Metformin HCl 500 Mg Tablet, 500 MG PO DAILY AT SUPPERTIME Prescribed by: CARLA PANDYA on 12/26/161740 Metformin HCl 500 Mg Tablet, 500 MG PO DAILY Prescribed by: CARLA PANDYA on 12/26/161740 Metoprolol Succinate 50 Mg Tab.er.24h, 50 MG PO DAILY, (Reported) Valsartan 160 Mg Tablet, 160 MG PO DAILY, (Reported) Past Tzsrecd-Wwlaiw-Obyziy Hx Patient Social History Alcohol Use: Denies Use Drug of Choice: Denies Smoking Status: Former Smoker Former Smoker, Quit: Jun 10, 1969 Recent Infectious Disease Expo: No Recent Hopitalizations: No Alcohol Use?: No Immunizations Up To Date Tetanus Booster (TDap): Unknown Date of Pneumonia Vaccine: Aug 03, 2012 Date of Influenza Vaccine: Sep 10, 2016 Seasonal Allergies Seasonal Allergies: No Past Medical History Surgeries: Yes (SKIN LESION) Appendectomy, Gallbladder Respiratory: No Pneumonia Cardiac: Yes Neurological: Yes Reproductive Disorders: No Sexually Transmitted Disease: Yes HIV/AIDS: No Gastrointestinal: Yes Chronic Constipation Musculoskeletal: Yes Arthritis Endocrine: Yes Diabetes, Non-Insulin dep Cataract Loss of Vision: Right Hearing Impairment: Denies Cancer: Yes Skin Psychosocial: No Integumentary: Yes (HISTORY OF RIGHT FOOT CELLULITIS 2008--MRSA. ALSO HX OF TINEA PEDIS) Recent Skin Changes Blood Disorders: No Adverse Reaction/Blood Tranf: No Family Medical History Alzheimer's disease Cardiovascular disease Diabetes mellitus Review of Systems Time Seen by Provider: 04:56 Sepsis Event Evaluation Height, Weight, BMI Height: 5'8.00" Weight: 200lbs. 8.0oz. 90.659163xu; 26.44 BMI Method:Stated Exam Exam Vital Signs Date Time Temp Pulse Resp B/P (MAP) Pulse Ox O2 Delivery O2 Flow Rate FiO2 01/08/21 04:40 36.6 01/08/21 04:00 76 10 169/88 (115) 100 Room Air 01/08/21 04:00 99 Room Air 01/08/21 03:00 71 23 164/90 (114) 97 Room Air 01/08/21 02:00 73 23 164/88 (113) 97 Room Air 01/08/21 01:00 71 01/08/21 01:00 71 23 132/84 (100) 98 Room Air 01/08/21 00:00 72 35 156/94 (114) 95 Room Air 01/08/21 00:00 Room Air 01/07/21 23:54 36.4 01/07/21 23:16 98 Room Air 01/07/21 23:00 73 17 166/78 (107) 98 Room Air 01/07/21 22:00 73 17 163/87 (112) 98 Room Air 01/07/21 21:00 73 10 167/83 (111) 99 Room Air 01/07/21 20:45 68 15 165/88 (113) 98 Room Air 01/07/21 20:30 65 15 167/83 (111) 97 Room Air 01/07/21 20:15 70 13 164/75 (104) 97 Room Air 01/07/21 20:00 64 14 166/76 (106) 99 Room Air 01/07/21 19:45 64 10 166/70 (102) 98 Room Air 01/07/21 19:30 63 11 165/76 (105) 99 Room Air 01/07/21 19:25 36.0 63 8 168/77 (107) 99 Room Air 01/07/21 19:21 64 01/07/21 19:15 95 Room Air 01/07/21 19:12 64 18 152/78 98 Room Air 01/07/21 16:04 35.7 64 28 158/75 (102) 98 Room Air I & O 01/08/21 07:00 Intake Total 50 ml Output Total 1850 ml Balance -1800 ml Height & Weight Height: 5'8.00" Weight: 200lbs. 8.0oz. 90.159906oq; 26.44 BMI Method:Stated General Appearance: No Apparent Distress, WD/WN HEENT: PERRL/EOMI, Normal ENT Inspection, Pharynx Normal Neck: Full Range of Motion, Non Tender, Supple Respiratory: Chest Non Tender, Lungs Clear, Normal Breath Sounds, No Accessory Muscle Use, No Respiratory Distress Cardiovascular: Regular Rate, Rhythm, No Edema, No JVD Capillary Refill: Less Than 3 Seconds Peripheral Pulses: 2+ Dorsalis Pedis (R), 2+ Left Dors-Pedis (L), 2+ Radial Pulses (R), 2+ Radial Pulses (L) Gastrointestinal: non tender, soft Extremity: Normal Capillary Refill, Normal Inspection, No Pedal Edema Neurologic/Psychiatric: Alert, Depressed Affect, Disoriented (hx of dementia ), Facial Droop (right sided), Motor Weakness (right sided weakness) Skin: Normal Color, Warm/Dry Lymphatic: No Adenopathy Results Lab Laboratory Tests 01/07/21 16:05 01/08/21 03:10 Assessment/Plan Assessment/Plan Acute CVA s/p TPA with persistent right sided weakness -NIH currently 17 down from 25 -Failed swallow evaluation -Pt refused transport to . [facility] was going to attempt clot retrieval -Pt is a DNR Hx of Parkinsons/dementia Hypokalemia -Replace Leukcytosis -Monitor -UA is negative FERNANDO BOBBY DO Jan 08, 2021 04:54
--- NOTE | 2021-01-08 07:46 | Diagnostic Imaging Report ---
EXAMINATION: Chest 1 view HISTORY: CVA COMPARISON: Chest radiograph 01/07/2021 FINDINGS: Heart size and pulmonary vasculature are upper limits of normal. Low lung volumes without consolidation, pleural effusion, or pneumothorax. The osseous structures are intact. IMPRESSION: 1. No acute radiographic abnormality in the chest. Dictated by: Dictated on workstation # [id number]
--- NOTE | 2021-01-08 11:32 | History & Physical ---
History of Present Illness History of Present Illness Reason for visit/HPI 85 yo M admitted for a stroke affecting his right side. Last known well at 1500. EMS brought patient to the ER. Patient does have diabetes that is well controlled. His CKD III has stabilized with addition of Farxiga last year. Per ER report: He got his second dose of Covid vaccine 01/05/21 and was having headache, irritability and diarrhea as well as increased somnolence throughout the day. He is a diabetic and blood sugar was 79 per EMS. Daughter clarifies the patient has not been having any fever and the diarrhea is chronic. Some head aches and irritability however yesterday they thought was related to the second dose of his Covid vaccine. He is ambulatory at baseline. He is conversational at baseline. He did receive tPA with improvement in his NIH score. Patient declined transfer to and does not want any surgery or significant intervention. He has held this decision since his years ago in which they had discussed through her medical decline. Date of Admission Jan 07, 2021 at 18:30 Date Seen by a Provider: Jan 08, 2021 Time Seen by a Provider: 08:30 I consulted on this patient on 01/08/21 11:26 Attending Physician Rufino Mann MD Admitting Physician Rufino Mann MD Consult Allergies and Home Medications Allergies Coded Allergies: meperidine (Verified Allergy, Mild, 01/11/09) Home Medications Acetaminophen 325 Mg Tablet, 650 MG PO Q6H PRN for PAIN-MILD (1-4), (Reported) TAKES 2 (325MG) TABLETS Amlodipine Besylate 2.5 Mg Tablet, 2.5 MG PO DAILY, (Reported) Aspirin 81 Mg Tablet.dr, 81 MG PO DAILY, (Reported) Carbidopa/Levodopa 1 Each Tablet, 1 TAB PO 0700,1200, (Reported) Carbidopa/Levodopa 1 Each Tablet, 2 EACH PO 1800, (Reported) TAKES 2 TABLETS Cetirizine HCl 10 Mg Tablet, 10 MG PO DAILY PRN for ALLERGIES, (Reported) Clopidogrel Bisulfate 75 Mg Tablet, 75 MG PO DAILY, (Reported) Glimepiride 4 Mg Tablet, 4 MG PO BIDAC, (Reported) Losartan Potassium 50 Mg Tablet, 50 MG PO DAILY, (Reported) Metformin HCl 500 Mg Tablet, 1,000 MG PO DAILY W/BREAKFAST, (Reported) TAKES 2 (500MG) TABLETS WITH BREAKFAST Metformin HCl 500 Mg Tablet, 500 MG PO 1800 W/SUPPER, (Reported) Metoprolol Succinate 50 Mg Tab.er.24h, 50 MG PO DAILY, (Reported) Patient Home Medication List Home Medication List Reviewed: Yes Past Ryjyedj-Sfqxge-Bpriah Hx Patient Social History Marrital Status: Employed/Student: retired Drug of Choice: Denies Smoking Status: Former Smoker Former Smoker, Quit: Jun 10, 1969 Recent Hopitalizations: No Alcohol Use?: No Pt feels they are or have been: No Immunizations Up To Date Tetanus Booster (TDap): Unknown Date of Pneumonia Vaccine: Aug 03, 2012 Date of Influenza Vaccine: Sep 10, 2016 Seasonal Allergies Seasonal Allergies: No Surgeries Yes (SKIN LESION) Appendectomy, Gallbladder Respiratory No Cardiovascular Yes Neurological Yes Reproductive System Hx Reproductive Disorders: No Sexually Transmitted Disease: Yes HIV/AIDS: No Gastrointestinal Yes Chronic Constipation Musculoskeletal Yes Arthritis Endocrine History of Endocrine Disorders: Yes Endocrine Disorders: Diabetes, Non-Insulin dep HEENT HEENT Disorders: Cataract Loss of Vision: Right Hearing Impairment: Denies Cancer Yes Skin Psychosocial History of Psychiatric Problem: No Integumentary History of Skin or Integumenta: Yes (HISTORY OF RIGHT FOOT CELLULITIS 2008--[facility]SA. ALSO HX OF TINEA PEDIS) Skin/Integumentary Disorders: Recent Skin Changes Blood Transfusions History of Blood Disorders: No Adverse Reaction to a Blood Tr: No Family Medical History Family Hx: Alzheimer's disease Cardiovascular disease Diabetes mellitus Review of Systems Review of Systems General: No Chills, No Night Sweats HEENT: No Head Aches Pulmonary: No Dyspnea Cardiovascular: No: Chest Pain, Palpitations Gastrointestinal: No: Nausea, Vomiting Genitourinary: No Dysuria Musculoskeletal: other, hand pain (joint pain) Neurological: Weakness All Other Systems Reviewed All Other Systems Reviewed: Yes Physical Exam Vital Signs Vital Signs - First Documented 01/07/21 16:04 Temp 35.7 Pulse 64 Resp 28 B/P (MAP) 158/75 (102) Pulse Ox 98 O2 Delivery Room Air Capillary Refill : Less Than 3 Seconds Height, Weight, BMI Height: 5'8.00" Weight: 200lbs. 8.0oz. 90.988313ye; 26.44 BMI Method:Stated General Appearance: No Apparent Distress HEENT: PERRL/EOMI Neck: Non Tender, Supple Respiratory: Chest Non Tender, Lungs Clear, Normal Breath Sounds, No Accessory Muscle Use Cardiovascular: Regular Rate, Rhythm Gastrointestinal: Non Tender, Soft Rectal: Deferred Extremity: Non Tender, Pedal Edema, Other (weakness in right arm, right leg) Neurologic/Psychiatric: Alert (confused), Depressed Affect, Facial Droop (right side) Skin: Warm/Dry Assessment/Plan Assessment/Plan Admission Dx CVA Admission Status: Inpatient Order (span 2 midnights) Reason for Inpatient Admission: Patient had a stroke and due to high NIH score he received tPa resulting in improvement in his score and symptoms. He will require 2 midnights to monitor for a brain bleed and/or progression, assess etiology and likely placement for recovery. Assessment and Plan admitted 01/07/21 for acute stroke. NIH scale went from 24 to a 10 with tPa. [facility] neurology was consulted. Head CTA did not show any infarct or clot. 01/08/21- will repeat CT of head post-24hour tPa. will order MRI head. PT/OT evaluation -obtaining hga1c Dispo: monitor for acute changes in condition. Pt is DNR. 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
[2021-01-08] MEDS ORDERED: CARB1TAB19 PO (12:42)
[2021-01-08] MEDS ORDERED: ASPI-1238 PO (12:42)
[2021-01-08] MEDS ORDERED: ACET325T38 PO (12:42)
[2021-01-08] MEDS ORDERED: METF-397 PO ×2 (12:42)
[2021-01-08] MEDS ORDERED: CETI10TA17 PO (12:44)
[2021-01-08] MEDS ORDERED: LOSA50TA63 PO (12:44)
--- NOTE | 2021-01-08 13:25 | Physical Therapy Progress Note ---
Therapy Progress Note Received PT order in the 24 hour window of TPA. Will assess in CAS Barboza PT Jan 08, 2021 13:25
--- NOTE | 2021-01-08 13:38 | Occ Therapy Progress Note ---
Therapy Progress Note OT orders received and chart reviewed. Pt confused/ slightly agitated per nursing. Pt also within 24 hour window of TPA administration. OT to hold until tomorrow and evaluate at that time. DONELL MERIDA OTR Jan 08, 2021 13:38
[2021-01-08] MEDS: NS IV 1000 ML 1,000 ML IV SCH (17:33)
--- NOTE | 2021-01-08 19:32 | Diagnostic Imaging Report ---
PROCEDURE: CT head without contrast. TECHNIQUE: Multiple contiguous axial images were obtained through the brain without the use of intravenous contrast. Auto Exposure Controls were utilized during the CT exam to meet ALARA standards for radiation dose reduction. DATE: January 08, 2021. COMPARISON: CT head without contrast January 07, 2021. INDICATION: 85-year-old male, stroke, status post TP administration 24 hours ago. FINDINGS: There is streak artifact present. A small and dysmorphic appearance of the right globe is also noted on the recent comparison study. There is mild proportional prominence of the ventricles and additional CSF spaces consistent with mild cerebral volume loss. There are probable findings of chronic small vessel ischemic disease. There are low-attenuation foci most notable in the left basal ganglia which may relate to age-indeterminate infarcts. These are unchanged since the recent exam. There is no identified abnormal extra-axial fluid collection. There is no evidence of acute intracranial hemorrhage. There is no mass effect or midline shift. The visualized portions of the paranasal sinuses, mastoid air cells, and middle ears are well aerated. IMPRESSION: 1. No identified interval acute intracranial abnormality. 2. Mild cerebral volume loss. Probable changes of chronic small vessel ischemic disease. Probable age-indeterminate infarcts of the left basal ganglia. 3. Technical limitations of the exam. Dictated by: Dictated on workstation # [id number]
[2021-01-08] MEDS ORDERED: DexMEDEtomidine 250 ML DRIP 250 ML IV ONE (22:26)
[2021-01-08] MEDS ORDERED: DexMEDEtomidine 250 ML DRIP 250 ML IV SCH (22:30)
[2021-01-09 03:04] LABS: BASOPHILS % (AUTO) 0 % (0-10); EOSINOPHILS # (AUTO) 0.3 10^3/uL (0.0-0.3); EOSINOPHILS % (AUTO) 3 % (0-10); HEMATOCRIT 43 % (40-54); HEMOGLOBIN 14.9 g/dL (13.3-17.7); LYMPHOCYTES # (AUTO) 1.5 10^3/uL (1.0-4.0); LYMPHOCYTES % (AUTO) 17 % (12-44); MEAN CORPUSCULAR HEMOGLOBIN 32 pg (25-34); MEAN CORPUSCULAR HGB CONC 35 g/dL (32-36); MEAN CORPUSCULAR VOLUME 92 fL (80-99); MEAN PLATELET VOLUME 9.8 fL (9.0-12.2); MONOCYTES # (AUTO) 0.6 10^3/uL (0.0-1.0); MONOCYTES % (AUTO) 7 % (0-12); NEUTROPHILS # (AUTO) 6.2 10^3/uL (1.8-7.8); NEUTROPHILS % (AUTO) 72 % (42-75); PLATELET COUNT 173 10^3/uL (130-400); WHITE BLOOD COUNT 8.6 10^3/uL (4.3-11.0)
[2021-01-09 03:23] LABS: CHLORIDE 103 MMOL/L (98-107); SODIUM 134 MMOL/L (135-145)
[2021-01-09 03:25] LABS: GLUCOSE 240 MG/DL (70-105)
[2021-01-09 03:27] LABS: CARBON DIOXIDE 21 MMOL/L (21-32)
[2021-01-09 03:29] LABS: CREATININE SERUM 0.81 MG/DL (0.60-1.30); GFR ESTIMATED > 60; PHOSPHORUS 2.9 MG/DL (2.3-4.7)
[2021-01-09 03:30] LABS: BUN/CREATININE RATIO 14
[2021-01-09 03:31] LABS: MAGNESIUM 1.9 MG/DL (1.6-2.4)
--- NOTE | 2021-01-09 05:26 | Pulmonary Progress Note ---
Subjective Time Seen by a Provider: 05:21 Subjective/Events-last exam Pt was agitated and is now on precedex Sepsis Event Evaluation Height, Weight, BMI Height: 5'8.00" Weight: 200lbs. 8.0oz. 90.701272zg; 26.44 BMI Method:Stated Exam Exam Vital Signs Date Time Temp Pulse Resp B/P (MAP) Pulse Ox O2 Delivery O2 Flow Rate FiO2 01/09/21 04:46 35.9 01/09/21 04:30 36.4 01/09/21 04:00 97 Room Air 01/09/21 01:00 55 01/09/21 00:00 36.1 01/09/21 00:00 97 Room Air 01/08/21 23:45 94 Room Air 01/08/21 23:00 60 112/74 (87) 94 Room Air 01/08/21 22:50 59 104/55 (71) 97 Room Air 01/08/21 22:00 63 8 97 Room Air 01/08/21 21:00 71 25 95 Room Air 01/08/21 20:30 36.2 01/08/21 20:00 63 28 97 Room Air 01/08/21 20:00 97 Room Air 01/08/21 19:00 62 18 96 Room Air 01/08/21 19:00 62 01/08/21 18:00 65 23 149/78 (101) 96 Room Air 01/08/21 17:00 65 17 157/79 (105) 97 Room Air 01/08/21 16:00 64 27 145/107 (120) 96 Room Air 01/08/21 16:00 99 Room Air 01/08/21 15:00 61 22 164/87 (112) 97 Room Air 01/08/21 14:00 64 34 170/115 (133) 97 Room Air 01/08/21 13:10 60 01/08/21 13:00 62 17 168/79 (108) 97 Room Air 01/08/21 12:00 99 Room Air 01/08/21 12:00 66 10 137/84 (101) 97 Room Air 01/08/21 11:00 65 24 156/86 (109) 98 Room Air 01/08/21 10:00 60 22 160/77 (104) 99 Room Air 01/08/21 09:00 60 26 157/76 (103) 99 Room Air 01/08/21 08:00 58 23 149/77 (101) 95 Room Air 01/08/21 08:00 99 Room Air 01/08/21 07:29 36.3 01/08/21 07:00 64 27 157/83 (107) 95 Room Air 01/08/21 06:38 70 01/08/21 06:00 71 16 164/89 (114) 98 Room Air 01/08/21 05:34 72 146/77 (100) 96 Room Air I & O 01/09/21 06:59 Intake Total 1100 ml Output Total 1000 ml Balance 100 ml Height & Weight Height: 5'8.00" Weight: 200lbs. 8.0oz. 90.068222wp; 26.44 BMI Method:Stated General Appearance: No Apparent Distress HEENT: PERRL/EOMI Neck: Non Tender, Supple Respiratory: Chest Non Tender, Lungs Clear, Normal Breath Sounds, No Accessory Muscle Use Cardiovascular: Regular Rate, Rhythm Capillary Refill: Less Than 3 Seconds Peripheral Pulses: 2+ Dorsalis Pedis (R), 2+ Left Dors-Pedis (L), 2+ Radial Pulses (R), 2+ Radial Pulses (L) Gastrointestinal: non tender, soft Extremity: Non Tender, Pedal Edema, Other (weakness in right arm, right leg) Neurologic/Psychiatric: Alert (confused), Depressed Affect, Facial Droop (right side) Skin: Warm/Dry Lymphatic: No Adenopathy Results Lab Laboratory Tests 01/07/21 16:05 01/08/21 03:10 01/09/21 02:42 Assessment/Plan Assessment/Plan Acute CVA s/p TPA with persistent right sided weakness -NIH currently 17 down from 25 -Failed swallow evaluation -Repeat swallow eval -Pt refused transport to . [facility] was going to attempt clot retrieval -Pt is a DNR Agitation -D/C precedex -Add PRN Geodon and Morphine -Avoid Ativan Debility -PT/OT Hx of Parkinsons/dementia Hypokalemia -Replace Leukcytosis -Monitor -UA is negative FERNANDO BOBBY DO Jan 09, 2021 05:26
[2021-01-09] MEDS ORDERED: morphine INJ 4 MG/ML 1 ML (VIAL/SYRINGE) IVP PRN (05:30)
[2021-01-09] MEDS: KCL 20 MEQ TAB (K-DUR) PO SCH (05:59)
[2021-01-09] MEDS: POTASSIUM CL 10MEQ/50ML IVPB 50 ML IV SCH (05:59)
[2021-01-09] MEDS: D5 LR IV SOLUTION 1,000 ML IV SCH ×3 (05:59→21:39)
[2021-01-09] MEDS: MAGNESIUM 1 GM/100 ML IVPB 100 ML IV SCH (05:59)
--- NOTE | 2021-01-09 08:15 | Speech Therapy Progress Note ---
Therapy Progress Note ST attempted to complete BDE this am. Patient was sound asleep and would not arouse to name or touch. ST will follow up later this morning to complete evaluation. LAURIE CAGLE Jan 09, 2021 08:14
--- NOTE | 2021-01-09 10:03 | Physical Therapy Progress Note ---
Therapy Progress Note Patient on Hold per physician due to sedation and mentation. Will attempt in CAS Barboza PT Jan 09, 2021 10:03
--- NOTE | 2021-01-09 11:41 | Speech Therapy Progress Note ---
Therapy Progress Note ST attempted again to complete the BDE with the patient. He continued to be sleeping very hard and would not arouse to name or touch. ST will follow up with patient in the morning due to not being available this afternoon. LAURIE CAGLE Jan 09, 2021 11:41
--- NOTE | 2021-01-09 13:46 | Occ Therapy Progress Note ---
Therapy Progress Note Pt on hold based on presentation/ mentation/ DO's recommendation per PT notes. OT to initiate OT eval/ treat following day. DONELL MERIDA OTR Jan 09, 2021 13:46
--- NOTE | 2021-01-09 16:40 | Progress Note ---
Subjective Subjective Date Seen by Provider: Jan 09, 2021 Time Seen by Provider: 08:20 Patient became agitated last night pulled IVs and cables. Took 3 people to assist in getting a new iv started. Patient was started on precedex and this has sedated him. Precedex stopped. Patient was still sedated this AM. CT last night did not go well- pt was difficult and would not hold still or keep his arms down. Review of Systems ROS Unable to Obtain: Pt sedated- did not answer questions General: No Chills, No Night Sweats HEENT: No Head Aches Pulmonary: No Dyspnea Cardiovascular: No: Chest Pain, Palpitations Gastrointestinal: No: Nausea, Vomiting Genitourinary: No Dysuria Musculoskeletal: other, hand pain (joint pain) Neurological: Weakness All Other Systems Reviewed All Other Systems Reviewed: Yes Objective Exam Vital Signs Vital Signs Date Time Temp Pulse Resp B/P (MAP) Pulse Ox O2 Delivery O2 Flow Rate FiO2 01/09/21 16:00 97 Room Air 01/09/21 14:00 54 11 142/91 (108) 97 Room Air 01/09/21 13:00 51 16 142/75 (97) 96 Room Air 01/09/21 12:35 55 01/09/21 12:00 51 19 152/80 (104) 96 Room Air 01/09/21 12:00 97 Room Air 01/09/21 11:49 36.2 01/09/21 11:00 55 20 159/82 (107) 95 Room Air 01/09/21 10:00 48 21 152/92 (112) 97 Room Air 01/09/21 09:00 48 24 137/82 (100) 96 Room Air 01/09/21 08:00 43 24 147/75 (99) 97 Room Air 01/09/21 08:00 97 Room Air 01/09/21 07:26 35.6 01/09/21 07:00 44 27 143/83 (103) 96 Room Air 01/09/21 06:48 46 01/09/21 06:00 48 23 156/74 (111) 94 Room Air 01/09/21 05:00 50 25 156/74 (104) 94 Room Air 01/09/21 04:46 35.9 01/09/21 04:30 36.4 01/09/21 04:00 51 25 156/78 (113) 94 Room Air 01/09/21 04:00 97 Room Air 01/09/21 03:00 53 23 157/74 (116) 94 Room Air 01/09/21 02:00 55 24 155/79 (112) 94 Room Air 01/09/21 01:00 55 01/09/21 01:00 55 24 153/91 (120) 94 Room Air 01/09/21 00:00 53 16 136/58 (103) 94 Room Air 01/09/21 00:00 36.1 01/09/21 00:00 97 Room Air 01/08/21 23:45 94 Room Air 01/08/21 23:00 60 112/74 (87) 94 Room Air 01/08/21 22:50 59 104/55 (71) 97 Room Air 01/08/21 22:00 63 8 97 Room Air 01/08/21 21:00 71 25 95 Room Air 01/08/21 20:30 36.2 01/08/21 20:00 63 28 97 Room Air 01/08/21 20:00 97 Room Air 01/08/21 19:00 62 18 96 Room Air 01/08/21 19:00 62 01/08/21 18:00 65 23 149/78 (101) 96 Room Air 01/08/21 17:00 65 17 157/79 (105) 97 Room Air I & O 01/09/21 07:00 Intake Total 2100 ml Output Total 1425 ml Balance 675 ml General Appearance: No Apparent Distress (sedated) HEENT: PERRL/EOMI Neck: Non Tender, Supple Respiratory: Chest Non Tender, Lungs Clear, Normal Breath Sounds, No Accessory Muscle Use Cardiovascular: Regular Rate, Rhythm Gastrointestinal: Non Tender, Soft Rectal: Deferred Extremity: Non Tender, Pedal Edema, Other (weakness in right arm, right leg) Neurologic/Psychiatric: No Alert Skin: Warm/Dry Lymphatic: No Adenopathy Results Lab Laboratory Tests 01/09/21 02:42: White Blood Count 8.6, Red Blood Count 4.60, Hemoglobin 14.9, Hematocrit 43, Mean Corpuscular Volume 92, Mean Corpuscular Hemoglobin 32, Mean Corpuscular Hemoglobin Concent 35, Red Cell Distribution Width 13.0, Platelet Count 173, Mean Platelet Volume 9.8, Immature Granulocyte % (Auto) 0, Neutrophils (%) (Auto) 72, Lymphocytes (%) (Auto) 17, Monocytes (%) (Auto) 7, Eosinophils (%) (Auto) 3, Basophils (%) (Auto) 0, Neutrophils # (Auto) 6.2, Lymphocytes # (Auto) 1.5, Monocytes # (Auto) 0.6, Eosinophils # (Auto) 0.3, Basophils # (Auto) 0.0, Immature Granulocyte # (Auto) 0.0, Sodium Level 134L, Potassium Level 4.0, Chloride Level 103, Carbon Dioxide Level 21, Anion Gap 10, Blood Urea Nitrogen 11, Creatinine 0.81, Estimat Glomerular Filtration Rate > 60, BUN/Creatinine Ratio 14, Glucose Level 240H, Calcium Level 8.0L, Phosphorus Level 2.9, Magnesium Level 1.9 Microbiology 01/07/21 MRSA Screen - Final, Complete 01/07/21 Urine Culture - Final, Complete NO GROWTH Assessment/Plan Assessment/Plan Admission Dx CVA Assessment and Plan admitted 01/07/21 for acute stroke. NIH scale went from 24 to a 10 with tPa. [facility] neurology was consulted. Head CTA did not show any infarct or clot. 01/08/21- will repeat CT of head post-24hour tPa. will order MRI head. PT/OT evaluation -obtaining hga1c 01/09/21- waiting for patient to wake up from being sedated on precedex. 24hour repeat CT negative for brain bleed. hga1c pending. PT/OT unable to evaluate patient due to sedation. Will hold on obtaining the MRI at this time as is it is not going to change our current care. Dispo: monitor for acute changes in condition. Pt is DNR. 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 Admission Dx CVA Clinical Quality Measures Admission Status Admission Dx CVA Stroke: Date of last known well: Jan 07, 2021 Time of last known well: 15:00 Symptoms onset unknown: No RAINER MANN MD Jan 09, 2021 16:40
[2021-01-09] MEDS: NS IV 1000 ML 1,000 ML IV SCH (18:02)
--- NOTE | 2021-01-10 05:11 | Pulmonary Progress Note ---
Subjective Time Seen by a Provider: 05:07 Subjective/Events-last exam Dementia is chronic. weakness improved. Sepsis Event Evaluation Height, Weight, BMI Height: 5'8.00" Weight: 200lbs. 8.0oz. [id number]; 26.44 BMI Method:Stated Exam Exam Vital Signs Date Time Temp Pulse Resp B/P (MAP) Pulse Ox O2 Delivery O2 Flow Rate FiO2 01/10/21 01:00 78 01/10/21 00:00 36.5 73 20 180/82 (114) 89 Room Air 01/10/21 00:00 95 Room Air 01/09/21 23:00 77 8 156/73 (101) 96 Room Air 01/09/21 22:00 71 11 153/85 (106) 96 Room Air 01/09/21 21:00 61 27 155/73 (95) 95 Room Air 01/09/21 20:00 95 Room Air 01/09/21 20:00 68 8 141/64 (87) 96 Room Air 01/09/21 20:00 37.2 01/09/21 19:00 71 01/09/21 19:00 71 22 145/75 (80) 95 Room Air 01/09/21 18:00 72 12 152/76 (101) 96 Room Air 01/09/21 17:00 61 10 146/76 (99) 98 Room Air 01/09/21 16:00 97 Room Air 01/09/21 16:00 54 16 160/78 (105) 94 Room Air 01/09/21 15:00 54 19 163/70 (101) 95 Room Air 01/09/21 14:00 54 11 142/91 (108) 97 Room Air 01/09/21 13:00 51 16 142/75 (97) 96 Room Air 01/09/21 12:35 55 01/09/21 12:00 51 19 152/80 (104) 96 Room Air 01/09/21 12:00 97 Room Air 01/09/21 11:49 36.2 01/09/21 11:00 55 20 159/82 (107) 95 Room Air 01/09/21 10:00 48 21 152/92 (112) 97 Room Air 01/09/21 09:00 48 24 137/82 (100) 96 Room Air 01/09/21 08:00 43 24 147/75 (99) 97 Room Air 01/09/21 08:00 97 Room Air 01/09/21 07:26 35.6 01/09/21 07:00 44 27 143/83 (103) 96 Room Air 01/09/21 06:48 46 01/09/21 06:00 48 23 156/74 (111) 94 Room Air I & O 01/10/21 07:00 Intake Total 1000 ml Output Total 1125 ml Balance -125 ml Height & Weight Height: 5'8.00" Weight: 200lbs. 8.0oz. 90.160238zl; 26.44 BMI Method:Stated General Appearance: No Apparent Distress (sedated) HEENT: PERRL/EOMI Neck: Non Tender, Supple Respiratory: Chest Non Tender, Lungs Clear, Normal Breath Sounds, No Accessory Muscle Use Cardiovascular: Regular Rate, Rhythm Capillary Refill: Less Than 3 Seconds Peripheral Pulses: 2+ Dorsalis Pedis (R), 2+ Left Dors-Pedis (L), 2+ Radial Pulses (R), 2+ Radial Pulses (L) Gastrointestinal: non tender, soft Extremity: Non Tender, Pedal Edema, Other (weakness in right arm, right leg) Neurologic/Psychiatric: No Alert Skin: Warm/Dry Lymphatic: No Adenopathy Results Lab Laboratory Tests 01/09/21 02:42 Assessment/Plan Assessment/Plan Acute CVA s/p TPA with weakness -NIH currently 17 down from 25 -Failed swallow evaluation -Repeat swallow eval -Pt refused transport to . was going to attempt clot retrieval -Pt is a DNR -Pt is refusing labs and is taking oxygen and BP cuff off. Agitation -precedex has been off since 9am yesterday -PRN Geodon and Morphine Debility -PT/OT Hx of Parkinsons/dementia Hypokalemia -Replace Leukcytosis -Monitor -UA is negative Will transfer to [address] [place] [address]. I will sign off once pt is transferred out of ICU. FERNANDO BOBBY DO Jan 10, 2021 05:11
[2021-01-10] MEDS: D5 LR IV SOLUTION 1,000 ML IV SCH ×3 (05:45→20:14)
[2021-01-10] MEDS: MAGNESIUM 1 GM/100 ML IVPB 100 ML IV SCH (06:10)
[2021-01-10] MEDS: POTASSIUM CL 10MEQ/50ML IVPB 50 ML IV SCH (06:10)
[2021-01-10] MEDS: KCL 20 MEQ TAB (K-DUR) PO SCH (06:10)
--- NOTE | 2021-01-10 09:04 | ST Dysphagia Evaluation ---
Speech Evaluation-General Medical Diagnosis CVA Onset Date: Jan 07, 2021 Therapy Diagnosis Therapy Diagnosis: Oropharyngeal Dysphagia Precautions Precautions: Aspiration Referral Referring Physician: Dr. Hays Medical History Pertinent Medical History: Arthritis, CAD, DM, HTN, Lymphoma Reviewed History: Yes Social History Current Living Status: Spouse Speech PLF/Current-Dysphagia Prior Level of Function Patient lives at home with his where their daughter states they are active for their age. Subjective Patient was alert and pleasant with the Bedside Dysphagia Evaluation. Cognitive Status Patient Orientation: Person, Place, Situation Oral Motor Skills Denture Type: Full- Upper & Lower Ability to Follow Directions: Good Patient was NPO pending BDE. Oral Expression Ability: No Impairment Voice Voice Phonatory-Based Quality: Weak Voice Pitch: Normal Voice Loudness: Moderately Soft/Quiet Face Facial Symmetry: Symmetrical Oral-Facial Assessment Oral-Facial Dentition: Normal Labial Seal Description: Weak Lingual Protrusion: Abnormal Lingual ROM: Abnormal Lingual Strength: Abnormal Lingual mobility is weak on the right side Pharynx Velopharyngeal Move.: Weak on Right Volitional Dry Swallow: Yes Voluntary Cough: Yes Can Clear Throat Volitionally: Yes Dysphagia Evaluation Consistencies Presented: Thin Liquid, Mechanical Soft, [place] Thick Liquid, Pureed Oral Phase: Reduced Oral Transit Oral phase is grossly within normal range for all consistencies. Patient exhibits slight delay of A to P transfer. Pharyngeal Phase: Delayed Swallow Pharyngeal phase is within normal range for nectar and puree. Delayed swallow onset with thin and mechanical soft. Funct. Velo/Pharyngeal Symptom: Cough After Swallow With thin and mechanical soft Dietary Recommendations: Liquid Recommendations: [place] Consistancy Swallowing Precautions: Alternate Liquids/Solids, Double Swallow, Decreased Bolus 1/2 Tsp, Liquids from Straw, Liquids from Spoon, Small Bites and Sips, Sitting Upright 90 Degrees, Sitting 90 Degrees 30 Post Intake Dysphagia Evaluation Summary Patient was seen at bedside for evaluation of swallow function. Patient has upper and lower dentures which appear to fit well. Patient was able to follow directions and express himself during the evaluation. Patient was given 1/2 tsp of thin x2 and small sips via straw x2 with delayed cough/clear after intake. [place] consistency was given at 1/2 tsp and small sips via straw without difficulty. Patient was given 1/2 tsp trials of puree and mechanical soft with cough/clear post mechanical soft intake. Patient is recommended for Dysphagia I with nectar with ongoing assessment tomorrow by ST. Patient is scheduled to move to the acute floor today. The diet recs were provided to his nurse and written on the white board in his room. Barriers to Learning New onset CVA Speech Short Term Goals Short Term Goals Short Term Goals 1) Patient will tolerate least restrictive diet level without s/s of aspiration at 90% or greater. 2) Patient/caregiver will utilize compensatory strategies as trained at 90% or greater with minimal cuing. Speech Tool Planner Goals Tool Planner Goals Patient will maintain adequate nutrition/hydration via safe effective swallow function. Speech-Plan Patient/Family Goals Patient/Family Goals: Patient plans on returning to his home where he lives with his . They also have family near for support. Treatment Plan Speech Therapy Treatment Plan: Concurrent Therapy Treatment Duration: Jan 19, 2021 Frequency: 3 times per week Estimated Hrs Per Day: .25 hour per day Rehab Potential: Fair Barriers to Learning: New onset CVA, age Pt/Family Agrees to Plan: Yes Safety Risks/Education Teaching Recipient: Patient Teaching Methods: Discussion Response to Teaching: Verbalize Understanding Education Topics Provided: Diet level, safe intake strategies Time Speech Therapy Time In: 07:55 Speech Therapy Time Out: 08:15 Total Billed Time: 20 Billed Treatment Time 1, CHIN, DYST LAURIE Landeros Jan 10, 2021 09:04
--- NOTE | 2021-01-10 09:11 | Physical Therapy Evaluation ---
PT Evaluation-General Medical Diagnosis Admission Date Jan 07, 2021 at 18:30 Medical Diagnosis: CVA Onset Date: Jan 07, 2021 Therapy Diagnosis Therapy Diagnosis: impaired mobility, strength, endurance, balance Height/Weight Height (Feet): 5 Height (Inches): 8.00 Weight (Pounds): 200 Weight (Ounces): 8.0 Precautions Precautions/Isolations: Fall Prevention, Standard Precautions Weight Bear Status Right Lower Extremity: Right Weight Bearing/Tolerated Left Lower Extremity: Left Weight Bearing/Tolerated Referral Physician: Neville Reason for Referral: Evaluation/Treatment Medical History Pertinent Medical History: Arthritis, CAD, DM, HTN, Lymphoma Additional Medical History Surgeries Yes (SKIN LESION) Appendectomy, Gallbladder Respiratory No Cardiovascular Yes Neurological Yes Reproductive System Hx Reproductive Disorders: No Sexually Transmitted Disease: Yes HIV/AIDS: No Gastrointestinal Yes Chronic Constipation Musculoskeletal Yes Arthritis Endocrine History of Endocrine Disorders: Yes Endocrine Disorders: Diabetes, Non-Insulin dep HEENT HEENT Disorders: Cataract Loss of Vision: Right Hearing Impairment: Denies Cancer Yes Skin Psychosocial History of Psychiatric Problem: No Integumentary History of Skin or Integumenta: Yes (HISTORY OF RIGHT FOOT CELLULITIS 2008--[facility]. ALSO HX OF TINEA PEDIS) Skin/Integumentary Disorders: Recent Skin Changes Reviewed History: Yes Social History Unsure of patient accuracy concerning this but he says he doesn't have any stairs and doesn't live alone. Prior Prior Level of Function SCALE: Activities may be completed with or without assistive devices. 6-Vmuwssdthz-vhanhmh completes the activity by him/herself with no assistance from a helper. 5-Set-up or Clean-up Assistance-helper sets up or cleans up; patient completes activity. [place] assists only prior to or following the activity. 4-Supervision or Touching Assistance-helper provides verbal cues and/or touching/steadying and/or contact guard assistance as patient completes activity. Assistance may be provided throughout the activity or intermittently. 3-Partial/Moderate Assistance-helper does LESS THAN HALF the effort. [place] lifts, holds or supports trunk or limbs, but provides less than half the effort. 2-Substantial/Maximal Assistance-helper does MORE THAN HALF the effort. [place] lifts or holds trunk or limbs and provides more than half the effort. 8-Ndtrqbvze-ouurtp does ALL the effort. Patient does none of the effort to complete the activity. Or, the assistance of 2 or more helpers is required for the patient to complete the activity. If activity was not attempted, code reason: 7-Patient Refused. 9-Not Applicable-not attempted and the patient did not perform the activity before the current illness, exacerbation or injury. 10-Not Attempted due to Environmental Limitations-(lack of equipment, weather restraints, etc.). 88-Not Attempted due to Medical Conditions or Safety Concerns. unsure, but patient states he was not using a walker previously PT Evaluation-Current Subjective Patient in bed pre tx, nurse states he has been combative, has no complaints of pain Pt/Family Goals none stated Objective Patient Orientation: Person, Confused, Unable to Assess ROM/Strength ROM Lower Extremities WNL Strength Lower Extremities unable to test because patient cannot follow directions but seems to have some weakness in RLE, can stand on it Sensory Hearing: Functional Transfers Roll Left to Right (QC): 3 Sit to Lying (QC): 3 Lying to Sitting/Side of Bed(Q: 3 Sit to Stand (QC): 3 min assist for sit to stand, was able to stand for about 3 min before needing to sit, patient leans moderately to the right side Balance Sitting Static: Fair Sitting Dynamic: Poor Standing Static: Poor Standing Dynamic: Poor Treatment BLE seated exercises x10 (AP, LAQ), patient has active dorsiflexion on the right side Assessment/Needs Patient has impaired mobility, strength, endurance, balance. He was not combative during tx but seemed anxious, has difficulty following directions Rehab Potential: Fair PT Marriage And Family Counselor Goals Marriage And Family Counselor Goals PT Marriage And Family Counselor Goals Time Frame: Jan 17, 2021 Roll Left & Right (QC): 6 Sit to Lying (QC): 4 Lying-Sitting on Side/Bed(QC): 4 Sit to Stand (QC): 4 Chair/Iav-xz-Wiqqk Xfer(QC): 4 Walk 10 feet (QC): 4 Walk 50ft with 2 Turns (QC): 4 PT Plan Problem List Problem List: Activity Tolerance, Functional Strength, Safety, Balance, Gait, Transfer, Bed Mobility, ROM Treatment/Plan Treatment Plan: Continue Plan of Care Treatment Plan: Bed Mobility, Education, Functional Activity [place], Functional Strength, Gait, Safety, Therapeutic Exercise, Transfers Treatment Duration: Jan 17, 2021 Frequency: 6 times per week Estimated Hrs Per Day: .25 hour per day Patient and/or Family Agrees t: Yes Safety Risks/Education Patient Education: Transfer Techniques, Correct Positioning, Safety Issues Teaching Recipient: Patient Teaching Methods: Demonstration, Discussion Response to Teaching: Reinforcement Needed Discharge Recommendations Plan Patient will perform bed mobility and transfer training, balance and endurance training, functional strengthening, stair training, gait training, and education, to improve functional mobility and independence at home. Therapy Discharge Recommendati: 24 Hour Supervision Time/GCodes Time In: 825 Time Out: 835 Total Billed Treatment Time: 10 Total Billed Treatment 1 visit MARCOS HICKS PT Jan 10, 2021 09:11
--- NOTE | 2021-01-10 09:40 | Occupational Therapy Eval ---
OT Evaluation-General/PLF Medical Diagnosis Admission Date Jan 07, 2021 at 18:30 Medical Diagnosis: CVA Onset Date: Jan 07, 2021 Therapy Diagnosis Therapy Diagnosis: Decreased ADL skills Height/Weight Height (Feet): 5 Height (Inches): 8.00 Weight (Pounds): 200 Weight (Ounces): 8.0 Precautions Precautions/Isolations: Fall Prevention, Standard Precautions Referral Physician: Neville Referral Reason: Activity Tolerance, Self Care, Evaluation/Treatment, Stre ngthening/ROM Medical History Pertinent Medical History: Arthritis, CAD, DM, HTN, Lymphoma Additional Medical History DM, CAD, arthritis, dementia. Current History Pt admits with CVA like sx 01/07. OT eval received 01/08, though pt within 24 hour window of TPA and was held following day as well due to medication/ unable to be aroused with EMPLOYMENT SPECIALIST/PROGRAM MANAGER and PT tx sessions. Social History Current Living Status: Children (son per pt.) ADL-Prior Level of Function SCALE: Activities may be completed with or without assistive devices. 7-Rbjvzwlfak-gdmyete completes the activity by him/herself with no assistance from a helper. 5-Set-up or Clean-up Assistance-helper sets up or cleans up; patient completes activity. [place] assists only prior to or following the activity. 4-Supervision or Touching Assistance-helper provides verbal cues and/or touching/steadying and/or contact guard assistance as patient completes activity. Assistance may be provided throughout the activity or intermittently. 3-Partial/Moderate Assistance-helper does LESS THAN HALF the effort. [place] lifts, holds or supports trunk or limbs, but provides less than half the effort. 2-Substantial/Maximal Assistance-helper does MORE THAN HALF the effort. [place] lifts or holds trunk or limbs and provides more than half the effort. 0-Hbycvarxt-tqrzxe does ALL the effort. Patient does none of the effort to complete the activity. Or, the assistance of 2 or more helpers is required for the patient to complete the activity. If activity was not attempted, code reason: 7-Patient Refused. 9-Not Applicable-not attempted and the patient did not perform the activity before the current illness, exacerbation or injury. 10-Not Attempted due to Environmental Limitations-(lack of equipment, weather restraints, etc.). 88-Not Attempted due to Medical Conditions or Safety Concerns. ADL PLOF Comments Based on pt's current abilities and dementia, pt required assist with I/ADLs throughout day, however, pt unable to provide this hx as to how much assist required. Self Care: Unknown Functional Cognition: Unknown Occupation: retired Drive Self: No OT Current Status Subjective Pt asleep in bed upon entry. Nursing states pt has been transferred to [facility] and been in room ~15 min. Pt agrees to get from bed to chair, 1:1 sitter present. Mental Status/Objective Patient Orientation: Person Attachments: Boudreaux Catheter, IV Current Glasses/Contacts: No Hearing Aids: No Dentures/Partials: No Hand Dominance: Right Upper Extremity ROM R WFL Upper Extremity Coordination WFL BUE Upper Extremity Sensation DNT Upper Extremity Strength WFL based on abilities to complete some activities ADL-Treatment Eating (QC): 2 (cup brought to mouth. Pt drinks from straw with success with nectar thickened liquids. Pt does not initiate attempt to drink for self.) Oral Hygiene (QC): 2 (Pt does not initiate task. Pt's items set in front of him and pt is cued for each step. Pt then sits in chair, falls asleep with toothbrush in hand. pt is cued multiple times to bring to mouth, states, "I've brushed my teeth." Pt will require max A to complete this task with increased cues.) Upper Body Dressing (QC): 3 (mod A with gown donning.) On/Off Footwear (QC): 1 (completed with TD.) Other Treatments Pt bed mob with increased time/ cues for arousal. Pt reaches EOB, sit to stand Mod A, states dizzy when asked. Pt stands ~2 min prior to ambulation. Ambulates with walker, no cues for hand placement, shuffled/ short gait with CGA. Pt sits with cues for hands, does not follow cues. Pt sits with control. Pt able to rotate head to R side with max cues due to arousal level. Oral care attempted with max time based on arousal (see specifics above). Pt is positioned for comfort/ safety with LEs elevated, chair alarm placed/ on, waffle cushion under bottom and all needs met. Pt's 1:1 in room end of session. More information is needed for pt's home environment/ living situation and pt's PLOF. Per notes, family is present intermittently. Education OT Patient Education: Correct positioning, Purpose of tx/functional activities, Safety issues, Transfer techniques Teaching Recipient: Patient Teaching Methods: Demonstration, Discussion Response to Teaching: Unable to Return Demonstration, Unable to Comprehend, Reinforcement Needed OT Mcfp Goals Mcfp Goals Time Frame: Jan 17, 2021 Eating (QC): 3 Oral Hygiene (QC): 3 Toileting Hygiene (QC): 3 Shower/Bathe Self (QC): 3 Upper Body Dressing (QC): 3 Lower Body Dressing (QC): 2 On/Off Footwear (QC): 2 Additional Goals: 1-Demonstrate ADL Tasks, 2-Verbalize Understanding, 3- ImproveStrength/Lobito 1=Demonstrate adherence to instructed precautions during ADL tasks. 2=Patient will verbalize/demonstrate understanding of assistive devices/modifications for ADL. 3=Patient will improve strength/tolerance for activity to enable patient to perform ADL's. OT Education/Plan Problem List/Assessment Assessment: Decreased Activ Tolerance, Decreased UE Strength, Dependent Transfers, Impaired Bed Mobility, Impaired Cognition, Impaired Funct Balance, Impaired I ADL's, Impaired Self-Care Skills Discharge Recommendations Plan/Recommendations: Continue POC Therapy Discharge Recommendati: 24 Hour Supervision, Post Acute OT Treatment Plan/Plan of Care Treatment,Training & Education: Yes Patient would benefit from OT for education, treatment and training to promote independence in ADL's, mobility, safety and/or upper extremity function for ADL's. Plan of Care: ADL Retraining, Caregiver Training, Concurrent Therapy, Functional Mobility, Group Exercise/Act as Ind, UE Funct Exercise/Act, UE Neuromus Re-Ed/Coord, W/C Management Training Treatment Duration: Jan 17, 2021 Frequency: 5 times per week Estimated Hrs Per Day: .25 hour per day Agreement: Yes Rehab Potential: Guarded Time/GCodes Start Time: 09:00 Stop Time: 09:31 Total Time Billed (hr/min): 31 Billed Treatment Time 1, CHAPIS ORTA (31) DONELL MERIDA OTR Jan 10, 2021 09:40
[2021-01-10 12:36] VITALS: BP 127/77
[2021-01-10] MEDS: NS IV 1000 ML 1,000 ML IV SCH (14:57)
[2021-01-10 15:39] VITALS: BP 187/95
--- NOTE | 2021-01-10 15:44 | Physician Query Clarification ---
"Physician Query-General Query to Physician: The medical record reflects the following clinical scenario: History/Risk factors: Dementia, Parkinsons Clinical Findings: Documentation of agitation, pulling out IV, not following directions, [address] new IV, agitation increasing at night. Treatment: precedex, PRN Geodon Question: What condition best reflects the above clinical scenario? Please document response in the Progress notes or Discharge Summary. 1. Agitation due to Dementia 2. Other , with explanation of the clinical findings 3. Clinically undetermined, no explanation for the clinical findings Please remember a lack of response to the above will prompt a phone page by CDI/coding staff In responding to this query, please exercise your independent professional judgment. The purpose of this communication is to more accurately reflect the complexity of your patients condition. The fact that a question is asked does not imply that any particular answer is desired or expected. Thank you for timely response to this clarification. Kaylynn Faith, MSN, RN RN Specialist-Clinical Doc Improvement CD -Health Info Mgmt Operations [address] [facility] t: [phone] | f: [phone] If you are unable to reach me at my extension, I may be working from home. Please contact me at [phone] PHYSICIAN RESPONSE: Based on the clinical findings in the record, please respond to the query above on this document as an addendum. Physician Response: Physician Response 1 agitation due to dementia If you have questions please contact: Coding Compliance Specialist: Ext: Thank you for your time and cooperation. Clinical Profile Grinder Technician/Coding Compliance Specialist This is a permanent part of the medical record KAYLYNN FAITH Jan 10, 2021 15:44 RAINER MANN MD Jan 10, 2021 21:57"
[2021-01-10] MEDS ORDERED: meTOproloL SUCCINATE 50 MG (TOPROL XL) TAB PO NR (15:45)
[2021-01-10] MEDS ORDERED: amLODIPine 2.5MG (NORVASC) TAB PO NR (15:45)
[2021-01-10] MEDS: inSUlin ASPART (NovoLOG) 1 UNIT/0.01 ML (CHARGE PER UNIT) SC SCH ×2 (16:16→19:47)
--- NOTE | 2021-01-10 16:20 | Physician Query Clarification ---
"Physician Query-General Query to Physician: The medical record reflects the following clinical scenario: History/Risk factors: DM, Recent somnolence/CVA Clinical Findings: Admission Cr/eGFR 1.37/49 improved to 0.81/>60 after treatment, Urine output increased from 1300 mls per 24 hours to 2300 mls per 24 hours Treatment: greater than 4L IV since admission, NS, D5LR at 125/hr, Lab monitoring, I and O Question: What condition best reflects the above clinical scenario? Please document response in the Progress notes or Discharge Summary. 1. Acute Kidney Injury, present on admission, resolved 2. Other , with explanation of the clinical findings 3. Clinically undetermined, no explanation for the clinical findings Please remember a lack of response to the above will prompt a phone page by CDI/coding staff In responding to this query, please exercise your independent professional judgment. The purpose of this communication is to more accurately reflect the complexity of your patients condition. The fact that a question is asked does not imply that any particular answer is desired or expected. Thank you for timely response to this clarification. Kaylynn Faith, MSN, RN RN Specialist-Clinical Doc Improvement CD -Health Info Mgmt Operations [address] [facility] t: [phone] | f: [phone] If you are unable to reach me at my extension, I may be working from home. Please contact me at [phone] PHYSICIAN RESPONSE: Based on the clinical findings in the record, please respond to the query above on this document as an addendum. Physician Response: Physician Response acute kidney failure on admission- resolved with ivf If you have questions please contact: Cellar Supervisor: Ext: Thank you for your time and cooperation. Clinical Registered Diet Technician/Cellar Supervisor This is a permanent part of the medical record KAYLYNN FAITH Jan 10, 2021 16:20 RAINER MANN MD Jan 10, 2021 21:47"
[2021-01-10 19:38] VITALS: BP 173/86
[2021-01-10] MEDS ORDERED: WATER (STERILE) FOR INJECTION 10 ML ONE (19:58)
[2021-01-10] MEDS: ZIPRASIDONE 20 MG INJ (GEODON) VIAL IM PRN (20:12)
[2021-01-10] MEDS: hydrALAZINE (APESOLINE) 20 MG/ML VIAL IV PRN (20:16)
--- NOTE | 2021-01-10 21:36 | Progress Note ---
Subjective Subjective Date Seen by Provider: Jan 10, 2021 Time Seen by Provider: 07:30 Patient was asleep this AM but easily waken. He is still confused. Review of Systems General: No Chills, No Night Sweats HEENT: No Head Aches Pulmonary: No Dyspnea Cardiovascular: No: Chest Pain, Palpitations Gastrointestinal: No: Nausea, Vomiting Genitourinary: No Dysuria Musculoskeletal: other, hand pain (joint pain) Neurological: Weakness All Other Systems Reviewed All Other Systems Reviewed: Yes Objective Exam Vital Signs Vital Signs - First Documented 01/07/21 16:04 Temp 35.7 Pulse 64 Resp 28 B/P (MAP) 158/75 (102) Pulse Ox 98 O2 Delivery Room Air Capillary Refill : Less Than 3 Seconds General Appearance: No Apparent Distress HEENT: PERRL/EOMI (sluggish) Neck: Non Tender, Supple Respiratory: Chest Non Tender, Lungs Clear, Normal Breath Sounds, No Accessory Muscle Use Cardiovascular: Regular Rate, Rhythm Gastrointestinal: Non Tender, Soft Rectal: Deferred Extremity: Non Tender, Pedal Edema, Other (weakness in right arm, right leg) Neurologic/Psychiatric: No Alert Skin: Warm/Dry Lymphatic: No Adenopathy Results Lab Laboratory Tests 01/10/21 12:39: Glucometer 197H 01/10/21 16:16: Glucometer 174H 01/10/21 19:46: Glucometer 177H Microbiology 01/07/21 MRSA Screen - Final, Complete 01/07/21 Urine Culture - Final, Complete NO GROWTH Assessment/Plan Assessment/Plan Admission Dx CVA Assessment and Plan admitted 01/07/21 for acute stroke. NIH scale went from 24 to a 10 with tPa. [facility] neurology was consulted. Head CTA did not show any infarct or clot. 01/08/21- will repeat CT of head post-24hour tPa. will order MRI head. PT/OT evaluation -obtaining hga1c 01/09/21- waiting for patient to wake up from being sedated on precedex. 24hour repeat CT negative for brain bleed. hga1c pending. PT/OT unable to evaluate patient due to sedation. Will hold on obtaining the MRI at this time as is it is not going to change our current care. 01/10/21- patient more awake today. PT/OT worked with patient today- both recommend 24 hour monitoring. Continue PT/OT. Will likely need placement rehab vs SNU. Stopped IVF. restarting plavix. Will not escalate up to warfarin. Dispo: monitor for acute changes in condition. Pt is DNR. 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
[2021-01-11] VITALS (7 sets, daily range): BP systolic 125–183; BP diastolic 59–84
[2021-01-11] MEDS: hydrALAZINE (APESOLINE) 20 MG/ML VIAL IV PRN (05:38)
[2021-01-11] MEDS: SINEMET 25/100 (CARBIDOPA/LEVODOPA) TAB PO SCH ×4 (05:40→15:55)
[2021-01-11] MEDS: inSUlin ASPART (NovoLOG) 1 UNIT/0.01 ML (CHARGE PER UNIT) SC SCH ×4 (05:56→20:07)
[2021-01-11 06:09] LABS: BASOPHILS % (AUTO) 0 % (0-10); EOSINOPHILS # (AUTO) 0.4 10^3/uL (0.0-0.3); EOSINOPHILS % (AUTO) 4 % (0-10); HEMATOCRIT 45 % (40-54); HEMOGLOBIN 15.3 g/dL (13.3-17.7); LYMPHOCYTES # (AUTO) 2.1 10^3/uL (1.0-4.0); LYMPHOCYTES % (AUTO) 25 % (12-44); MEAN CORPUSCULAR HEMOGLOBIN 32 pg (25-34); MEAN CORPUSCULAR HGB CONC 34 g/dL (32-36); MEAN CORPUSCULAR VOLUME 94 fL (80-99); MEAN PLATELET VOLUME 10.5 fL (9.0-12.2); MONOCYTES # (AUTO) 0.7 10^3/uL (0.0-1.0); MONOCYTES % (AUTO) 9 % (0-12); NEUTROPHILS # (AUTO) 5.2 10^3/uL (1.8-7.8); NEUTROPHILS % (AUTO) 62 % (42-75); PLATELET COUNT 227 10^3/uL (130-400); WHITE BLOOD COUNT 8.4 10^3/uL (4.3-11.0)
[2021-01-11 06:33] LABS: BUN/CREATININE RATIO 9; CALCIUM 9.1 MG/DL (8.5-10.1); CARBON DIOXIDE 25 MMOL/L (21-32); CHLORIDE 105 MMOL/L (98-107); CREATININE SERUM 0.79 MG/DL (0.60-1.30); GFR ESTIMATED > 60; GLUCOSE 154 MG/DL (70-105); MAGNESIUM 1.8 MG/DL (1.6-2.4); PHOSPHORUS 2.9 MG/DL (2.3-4.7); POTASSIUM 4.4 MMOL/L (3.6-5.0); SODIUM 142 MMOL/L (135-145)
[2021-01-11] MEDS: MAGNESIUM 1 GM/100 ML IVPB 100 ML IV SCH (06:41)
[2021-01-11] MEDS: POTASSIUM CL 10MEQ/50ML IVPB 50 ML IV SCH (06:41)
[2021-01-11] MEDS: KCL 20 MEQ TAB (K-DUR) PO SCH (06:41)
[2021-01-11] MEDS ORDERED: WATER (STERILE) FOR INJECTION 10 ML ONE ×2 (07:13→19:48)
[2021-01-11] MEDS: ZIPRASIDONE 20 MG INJ (GEODON) VIAL IM PRN ×2 (07:34→20:08)
--- NOTE | 2021-01-11 09:15 | Occupational Ther Daily Note ---
OT Current Status-Daily Note Subjective Pt asleep in bed. 1:1 sitter present through session, as well as PT through part of session. Pt is aroused through verbals/ slight taviles. Pt agrees to get cleaned up, wash hair, doff shirt, eat then states he is finished upon 4-5 bites. Pt grimaces during rolling, though denies pain when asked. Mental Status/Objective Attachments: Boudreaux Catheter ADL-Treatment Therapy Code Descriptions/Definitions Functional [place] Measure: 0=Not Assessed/NA 4=Minimal Assistance 1=Total Assistance 5=Supervision or Setup 2=Maximal Assistance 6=Modified [place] 3=Moderate Assistance 7=Complete IndependenceSCALE: Activities may be completed with or without assistive devices. 6-Zniycejaqk-apedbii completes the activity by him/herself with no assistance from a helper. 5-Set-up or Clean-up Assistance-helper sets up or cleans up; patient completes activity. [place] assists only prior to or following the activity. 4-Supervision or Touching Assistance-helper provides verbal cues and/or touching/steadying and/or contact guard assistance as patient completes activity. Assistance may be provided throughout the activity or intermittently. 3-Partial/Moderate Assistance-helper does LESS THAN HALF the effort. [place] lifts, holds or supports trunk or limbs, but provides less than half the effort. 2-Substantial/Maximal Assistance-helper does MORE THAN HALF the effort. [place] lifts or holds trunk or limbs and provides more than half the effort. 8-Xodixurkp-opijhk does ALL the effort. Patient does none of the effort to complete the activity. Or, the assistance of 2 or more helpers is required for the patient to complete the activity. If activity was not attempted, code reason: 7-Patient Refused. 9-Not Applicable-not attempted and the patient did not perform the activity before the current illness, exacerbation or injury. 10-Not Attempted due to Environmental Limitations-(lack of equipment, weather restraints, etc.). 88-Not Attempted due to Medical Conditions or Safety Concerns. Eating (QC): 3 (max cues for initiation. Mod A for scooping/ bringing to mouth. Pt able to guide utensile to mouth with CGA/ swallow.) Oral Hygiene (QC): 7 (denies dentation this am.) Bathing Location: L Arm, R Arm, Chest Shower/Bathe Self (QC): 1 (TD due to Ax2 for rolling in bed during bottom care. Pt initiates face hygiene when handed cloth, though requires max cues for initiation of each body part, eg."Lift arm, wipe your under arm." ) Upper Body Dressing (QC): 3 (mod A and mod VCs to doff shirt. Gown donned with max a) Lower Body Dressing (QC): 1 (TD due to Ax2 during rolling/ breif placement. ) Toileting Hygiene (QC): 1 (mod A x2 for rolling in bed and bottom care.) Other Treatment Pt requires increased cues for arousal and initiation of each task. Pt requires clean up after BM in bed/ brief. Pt rolls with mod Ax2, max cues each time. Pt grimaces, denies pain. Pt is cleaned up head to toe with limited activity by pt (completes UB, denies completing hair or LB washing). Shirt is doffed/ replaced by gown and clean brief. Pt brought to [facility] with max Ax2. Sitting upright, pt requires assist for feeding as outlined. Pt left with 1:1 end of session with all needs met. Education OT Patient Education: Correct positioning, Modified ADL techniques, Purpose of tx/functional activities, Safety issues, Transfer techniques Teaching Recipient: Patient Teaching Methods: Demonstration, Discussion Response to Teaching: Unable to Return Demonstration, Return Demonstration, Unable to Comprehend, Reinforcement Needed OT Divider Operator Goals Detention Goals Time Frame: Jan 17, 2021 Eating (QC): 3 Oral Hygiene (QC): 3 Toileting Hygiene (QC): 3 Shower/Bathe Self (QC): 3 Upper Body Dressing (QC): 3 Lower Body Dressing (QC): 2 On/Off Footwear (QC): 2 Additional Goals: 1-Demonstrate ADL Tasks, 2-Verbalize Understanding, 3- ImproveStrength/Lobito 1=Demonstrate adherence to instructed precautions during ADL tasks. 2=Patient will verbalize/demonstrate understanding of assistive devices/modifications for ADL. 3=Patient will improve strength/tolerance for activity to enable patient to perform ADL's. OT Education/Plan Problem List/Assessment Assessment: Decreased Activ Tolerance, Decreased Safety Aware, Decreased UE S trength, Dependent Transfers, Impaired Bed Mobility, Impaired Cognition, Impaired Funct Balance, Impaired I ADL's, Impaired Self-Care Skills Discharge Recommendations Plan/Recommendations: Continue POC Therapy Discharge Recommendati: 24 Hour Supervision, Post Acute OT Treatment Plan/Plan of Care Treatment,Training & Education: Yes Patient would benefit from OT for education, treatment and training to promote independence in ADL's, mobility, safety and/or upper extremity function for ADL's. Plan of Care: ADL Retraining, Caregiver Training, Concurrent Therapy, Functional Mobility, Group Exercise/Act as Ind, UE Funct Exercise/Act, UE Neuromus Re-Ed/Coord, W/C Management Training Treatment Duration: Jan 17, 2021 Frequency: 5 times per week Estimated Hrs Per Day: .25 hour per day Agreement: Yes Rehab Potential: Guarded Time/GCodes Start Time: 08:31 Stop Time: 09:05 Total Time Billed (hr/min): 34 Billed Treatment Time 1, ADL 2 (34) DONELL MERIDA OTR Jan 11, 2021 09:15
[2021-01-11] MEDS: meTOproloL SUCCINATE 50 MG (TOPROL XL) TAB PO SCH (09:37)
[2021-01-11] MEDS: amLODIPine 2.5MG (NORVASC) TAB PO SCH (09:37)
[2021-01-11] MEDS: CLOPIDOGREL 75 MG (PLAVIX) TABLET PO SCH (09:37)
--- NOTE | 2021-01-11 10:25 | Physical Therapy Daily Note ---
PT Daily Note-Current Subjective Upon arrival to room, pt with OT and 1:1 sitter, beginning to clean up BM this time. Pt denies pain throughout session despite grimacing with rolling movement Appearance Following session, pt sitting up in bed, eating with OT and 1:1 sitter present in room. All needs met this time. Mental Status Patient Orientation: Confused Attachments: Boudreaux Catheter Transfers SCALE: Activities may be completed with or without assistive devices. 7-Ghmyjzhmph-alhjcgu completes the activity by him/herself with no assistance from a helper. 5-Set-up or Clean-up Assistance-helper sets up or cleans up; patient completes activity. [place] assists only prior to or following the activity. 4-Supervision or Touching Assistance-helper provides verbal cues and/or touching/steadying and/or contact guard assistance as patient completes activity. Assistance may be provided throughout the activity or intermittently. 3-Partial/Moderate Assistance-helper does LESS THAN HALF the effort. [place] lifts, holds or supports trunk or limbs, but provides less than half the effort. 2-Substantial/Maximal Assistance-helper does MORE THAN HALF the effort. [place] lifts or holds trunk or limbs and provides more than half the effort. 7-Qbfrzsgyr-mlziyj does ALL the effort. Patient does none of the effort to complete the activity. Or, the assistance of 2 or more helpers is required for the patient to complete the activity. If activity was not attempted, code reason: 7-Patient Refused. 9-Not Applicable-not attempted and the patient did not perform the activity before the current illness, exacerbation or injury. 10-Not Attempted due to Environmental Limitations-(lack of equipment, weather restraints, etc.). 88-Not Attempted due to Medical Conditions or Safety Concerns. Roll Left & Right (QC): 2 Pt mod-max A x 2 with rolling activities with cleaning up in bed. he requires maximal verbal cueing with all activities. Dependent to move head up in bed. Weight Bearing Right Lower Extremity: Right Weight Bearing/Tolerated Left Lower Extremity: Left Weight Bearing/Tolerated Assessment Current Status: Fair Progress Pt requires max verbal cueing and mod-max A x2 to roll both sides in bed this date. Will continue to progress pt as tolerates. PT Long-Term Goals Long-Term Goals PT Low Altitude Air Defense Officer Goals Time Frame: Jan 17, 2021 Roll Left & Right (QC): 6 Sit to Lying (QC): 4 Lying-Sitting on Side/Bed(QC): 4 Sit to Stand (QC): 4 Chair/Lgx-ir-Coimx Xfer(QC): 4 Walk 10 feet (QC): 4 Walk 50ft with 2 Turns (QC): 4 PT Plan Problem List Problem List: Activity Tolerance, Functional Strength, Safety, Balance, Gait, Transfer, Bed Mobility, ROM Treatment/Plan Treatment Plan: Continue Plan of Care Treatment Plan: Bed Mobility, Education, Functional Activity Lobito, Functional Strength, Gait, Safety, Therapeutic Exercise, Transfers Treatment Duration: Jan 17, 2021 Frequency: 6 times per week Estimated Hrs Per Day: .25 hour per day Patient and/or Family Agrees t: Yes Time/GCodes Time In: 842 Time Out: 900 Total Billed Treatment Time: 18 Total Billed Treatment 1 visit FA (18') UZMA YANG PT Jan 11, 2021 10:25
[2021-01-11] MEDS ORDERED: ACETAMINOPHEN 500 MG TAB (TYLENOL) PO PRN (15:45)
--- NOTE | 2021-01-11 15:49 | Progress Note ---
Subjective Subjective Date Seen by Provider: Jan 11, 2021 Time Seen by Provider: 08:10 Patient was asleep this AM but easily waken. He is still confused. He fell asleep when he tried eating breakfast. Review of Systems General: No Chills, No Night Sweats HEENT: No Head Aches Pulmonary: No Dyspnea Cardiovascular: No: Chest Pain, Palpitations Gastrointestinal: No: Nausea, Vomiting Genitourinary: No Dysuria Musculoskeletal: other, hand pain (joint pain) Neurological: Weakness All Other Systems Reviewed All Other Systems Reviewed: Yes Objective Exam Vital Signs Vital Signs Date Time Temp Pulse Resp B/P (MAP) Pulse Ox O2 Delivery O2 Flow Rate FiO2 01/11/21 15:31 36.6 76 18 147/81 (103) 95 Room Air 01/11/21 11:14 36.2 77 20 147/72 (97) 95 Room Air 01/11/21 08:01 36.4 75 24 125/59 (81) 95 Room Air 01/11/21 08:00 95 Room Air 01/11/21 04:00 35.8 70 18 183/84 (117) 95 Room Air 01/11/21 00:00 36.1 73 20 154/72 (99) 92 Room Air 01/10/21 21:14 Room Air 01/10/21 19:38 36.3 73 20 173/86 (115) 96 Room Air I & O 01/11/21 06:59 Intake Total 1290 ml Output Total 2975 ml Balance -1685 ml General Appearance: No Apparent Distress HEENT: PERRL/EOMI (sluggish) Neck: Non Tender, Supple Respiratory: Chest Non Tender, Lungs Clear, Normal Breath Sounds, No Accessory Muscle Use Cardiovascular: Regular Rate, Rhythm Gastrointestinal: Non Tender, Soft Rectal: Deferred Extremity: Non Tender, Pedal Edema, Other (weakness in right arm, right leg) Neurologic/Psychiatric: No Alert Skin: Warm/Dry Lymphatic: No Adenopathy Results Lab Laboratory Tests 01/10/21 16:16: Glucometer 174H 01/10/21 19:46: Glucometer 177H 01/11/21 05:22: Glucometer 141H 01/11/21 05:31: White Blood Count 8.4, Red Blood Count 4.80, Hemoglobin 15.3, Hematocrit 45, Mean Corpuscular Volume 94, Mean Corpuscular Hemoglobin 32, Mean Corpuscular Hemoglobin Concent 34, Red Cell Distribution Width 13.2, Platelet Count 227, Mean Platelet Volume 10.5, Immature Granulocyte % (Auto) 1, Neutrophils (%) (Auto) 62, Lymphocytes (%) (Auto) 25, Monocytes (%) (Auto) 9, Eosinophils (%) (Auto) 4, Basophils (%) (Auto) 0, Neutrophils # (Auto) 5.2, Lymphocytes # (Auto) 2.1, Monocytes # (Auto) 0.7, Eosinophils # (Auto) 0.4H, Basophils # (Auto) 0.0, Immature Granulocyte # (Auto) 0.0, Sodium Level 142, Potassium Level 4.4, Chloride Level 105, Carbon Dioxide Level 25, Anion Gap 12, Blood Urea Nitrogen 7, Creatinine 0.79, Estimat Glomerular Filtration Rate > 60, BUN/Creatinine Ratio 9, Glucose Level 154H, Calcium Level 9.1, Phosphorus Level 2.9, Magnesium Level 1.8 01/11/21 11:05: Glucometer 162H 01/11/21 15:15: Glucometer 167H Microbiology 01/07/21 MRSA Screen - Final, Complete 01/07/21 Urine Culture - Final, Complete NO GROWTH Assessment/Plan Assessment/Plan Admission Dx CVA Assessment and Plan admitted 01/07/21 for acute stroke. NIH scale went from 24 to a 10 with tPa. [facility] neurology was consulted. Head CTA did not show any infarct or clot. 01/08/21- will repeat CT of head post-24hour tPa. will order MRI head. PT/OT evaluation -obtaining hga1c 01/09/21- waiting for patient to wake up from being sedated on precedex. 24hour repeat CT negative for brain bleed. hga1c pending. PT/OT unable to evaluate patient due to sedation. Will hold on obtaining the MRI at this time as is it is not going to change our current care. 01/10/21- patient more awake today. PT/OT worked with patient today- both recommend 24 hour monitoring. Continue PT/OT. Will likely need placement rehab vs SNU. Stopped IVF. restarting plavix. Will not escalate up to warfarin. 01/11/21- Pt is not eating. In part because he has been getting geodon IM and this has sedated him. Need to try and not give it. But he has been combative at times. Continue with PT/OT. Will need placement. Case Management to discuss with family about placement or their plans. Dispo: monitor for acute changes in condition. Pt is DNR. 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 Admission Dx CVA Clinical Quality Measures Admission Status Admission Dx CVA Stroke: Date of last known well: Jan 07, 2021 Time of last known well: 15:00 Symptoms onset unknown: No RAINER MANN MD Jan 11, 2021 15:49
[2021-01-12 04:00] VITALS: BP 150/73
[2021-01-12] MEDS: SINEMET 25/100 (CARBIDOPA/LEVODOPA) TAB PO SCH ×3 (05:43→18:00)
[2021-01-12 05:59] LABS: BASOPHILS % (AUTO) 1 % (0-10); EOSINOPHILS # (AUTO) 0.3 10^3/uL (0.0-0.3); EOSINOPHILS % (AUTO) 5 % (0-10); HEMATOCRIT 45 % (40-54); HEMOGLOBIN 15.1 g/dL (13.3-17.7); LYMPHOCYTES # (AUTO) 1.3 10^3/uL (1.0-4.0); LYMPHOCYTES % (AUTO) 22 % (12-44); MEAN CORPUSCULAR HEMOGLOBIN 32 pg (25-34); MEAN CORPUSCULAR HGB CONC 34 g/dL (32-36); MEAN CORPUSCULAR VOLUME 94 fL (80-99); MONOCYTES # (AUTO) 0.5 10^3/uL (0.0-1.0); MONOCYTES % (AUTO) 8 % (0-12); NEUTROPHILS # (AUTO) 3.7 10^3/uL (1.8-7.8); NEUTROPHILS % (AUTO) 64 % (42-75); PLATELET COUNT 226 10^3/uL (130-400); WHITE BLOOD COUNT 5.9 10^3/uL (4.3-11.0)
[2021-01-12 06:11] LABS: CHLORIDE 105 MMOL/L (98-107); POTASSIUM 3.3 MMOL/L (3.6-5.0); SODIUM 140 MMOL/L (135-145)
[2021-01-12 06:12] LABS: CALCIUM 8.7 MG/DL (8.5-10.1)
[2021-01-12 06:13] LABS: GLUCOSE 141 MG/DL (70-105)
[2021-01-12 06:15] LABS: CARBON DIOXIDE 21 MMOL/L (21-32)
[2021-01-12] MEDS: inSUlin ASPART (NovoLOG) 1 UNIT/0.01 ML (CHARGE PER UNIT) SC SCH ×4 (06:16→21:04)
[2021-01-12 06:17] LABS: CREATININE SERUM 0.82 MG/DL (0.60-1.30); GFR ESTIMATED > 60; PHOSPHORUS 2.9 MG/DL (2.3-4.7)
[2021-01-12 06:18] LABS: BUN/CREATININE RATIO 18
[2021-01-12 06:19] LABS: MAGNESIUM 1.9 MG/DL (1.6-2.4)
[2021-01-12] MEDS: KCL 20 MEQ TAB (K-DUR) PO SCH (06:31)
[2021-01-12 07:49] VITALS: BP 141/78
[2021-01-12] MEDS ORDERED: KCL 20 MEQ TAB (K-DUR) PO ONE (09:00)
[2021-01-12] MEDS: CLOPIDOGREL 75 MG (PLAVIX) TABLET PO SCH ×2 (09:26→09:36)
[2021-01-12] MEDS: meTOproloL SUCCINATE 50 MG (TOPROL XL) TAB PO SCH ×2 (09:26→09:36)
[2021-01-12] MEDS: amLODIPine 2.5MG (NORVASC) TAB PO SCH ×2 (09:26→09:36)
--- NOTE | 2021-01-12 09:47 | Occupational Ther Daily Note ---
OT Current Status-Daily Note Subjective Pt upright in chair. 1:1 states got 2 person assist to recliner from bed. Attempting to eat. Upon further eating, pt denies food, stating, "No, no, no," when asked if he desires more. ADL-Treatment Therapy Code Descriptions/Definitions Functional [place] Measure: 0=Not Assessed/NA 4=Minimal Assistance 1=Total Assistance 5=Supervision or Setup 2=Maximal Assistance 6=Modified [place] 3=Moderate Assistance 7=Complete IndependenceSCALE: Activities may be completed with or without assistive devices. 6-Zljscceftk-oxhfkgr completes the activity by him/herself with no assistance from a helper. 5-Set-up or Clean-up Assistance-helper sets up or cleans up; patient completes activity. [place] assists only prior to or following the activity. 4-Supervision or Touching Assistance-helper provides verbal cues and/or touching/steadying and/or contact guard assistance as patient completes activity. Assistance may be provided throughout the activity or intermittently. 3-Partial/Moderate Assistance-helper does LESS THAN HALF the effort. [place] lifts, holds or supports trunk or limbs, but provides less than half the effort. 2-Substantial/Maximal Assistance-helper does MORE THAN HALF the effort. [place] lifts or holds trunk or limbs and provides more than half the effort. 4-Lyllktsng-xmkurc does ALL the effort. Patient does none of the effort to complete the activity. Or, the assistance of 2 or more helpers is required for the patient to complete the activity. If activity was not attempted, code reason: 7-Patient Refused. 9-Not Applicable-not attempted and the patient did not perform the activity before the current illness, exacerbation or injury. 10-Not Attempted due to Environmental Limitations-(lack of equipment, weather restraints, etc.). 88-Not Attempted due to Medical Conditions or Safety Concerns. Eating (QC): 3 (Food scooped for pt, handed to pt. Pt able to bring to mouth and eat once placed.) Other Treatment Pt upright in chair. Pt's eyes open/ shut intermittently through treatment. Makes eye contact 2x during session, increased alertness since yesterday. Pt completes ~4 bites of food. Scrapes at L eye. Pt is handed cloth and instructed to wipe eye rather than scratch. Pt holds cloth in hand. After ~1 min, pt wipes face with cloth. OT takes cloth. Pt denies further eating. Pt takes call light in hand, asks, "What is this?" Educated on TV remote. Pt laughs. Pt is given break, about 2 min silence and pt states, "Okay, let's eat." Pt's nurse attempts to feed medication from spoon with education on what is in pudding. Pt denies. Eyes shut. Pt is asked to eat a few more bites. Pt denies once more. Pt left in recliner with all needs met, call light in reach. Nursing educated on pt's status from OT standpoint. Education OT Patient Education: Correct positioning, Purpose of tx/functional activities Teaching Recipient: Patient Teaching Methods: Demonstration, Discussion Response to Teaching: Unable to Return Demonstration, Return Demonstration, Reinforcement Needed OT Ict Business Analyst Goals Ict Business Analyst Goals Time Frame: Jan 17, 2021 Eating (QC): 3 Oral Hygiene (QC): 3 Toileting Hygiene (QC): 3 Shower/Bathe Self (QC): 3 Upper Body Dressing (QC): 3 Lower Body Dressing (QC): 2 On/Off Footwear (QC): 2 Additional Goals: 1-Demonstrate ADL Tasks, 2-Verbalize Understanding, 3- ImproveStrength/[place] 1=Demonstrate adherence to instructed precautions during ADL tasks. 2=Patient will verbalize/demonstrate understanding of assistive devices/modifications for ADL. 3=Patient will improve strength/tolerance for activity to enable patient to perform ADL's. OT Education/Plan Problem List/Assessment Assessment: Decreased Activ Tolerance, Decreased Safety Aware, Decreased UE Strength, Dependent Transfers, Impaired Cognition, Impaired Funct Balance, Impaired I ADL's, Impaired Self-Care Skills Discharge Recommendations Plan/Recommendations: Continue POC Therapy Discharge Recommendati: 24 Hour Supervision, Post Acute OT Treatment Plan/Plan of Care Treatment,Training & Education: Yes Patient would benefit from OT for education, treatment and training to promote independence in ADL's, mobility, safety and/or upper extremity function for ADL's. Plan of Care: ADL Retraining, Caregiver Training, Concurrent Therapy, Functional Mobility, Group Exercise/Act as Ind, UE Funct Exercise/Act, UE Neuromus Re-Ed/Coord, W/C Management Training Treatment Duration: Jan 17, 2021 Frequency: 5 times per week Estimated Hrs Per Day: .25 hour per day Agreement: Yes Rehab Potential: Guarded Time/GCodes Start Time: 09:15 Stop Time: 09:25 Total Time Billed (hr/min): 10 Billed Treatment Time 1, ADL (10) DONELL MERIDA OTR Jan 12, 2021 09:47
--- NOTE | 2021-01-12 10:52 | Physical Therapy Daily Note ---
PT Daily Note-Current Subjective Drowsy. Mumbles when attempts to answer questions. Unable to understand pt. Mental Status Patient Orientation: Confused, Unable to Assess Transfers SCALE: Activities may be completed with or without assistive devices. 7-Jqjboriitg-umrzqbp completes the activity by him/herself with no assistance from a helper. 5-Set-up or Clean-up Assistance-helper sets up or cleans up; patient completes activity. [place] assists only prior to or following the activity. 4-Supervision or Touching Assistance-helper provides verbal cues and/or touching/steadying and/or contact guard assistance as patient completes activity. Assistance may be provided throughout the activity or intermittently. 3-Partial/Moderate Assistance-helper does LESS THAN HALF the effort. [place] lifts, holds or supports trunk or limbs, but provides less than half the effort. 2-Substantial/Maximal Assistance-helper does MORE THAN HALF the effort. [place] lifts or holds trunk or limbs and provides more than half the effort. 9-Hetonogdp-ysbchv does ALL the effort. Patient does none of the effort to complete the activity. Or, the assistance of 2 or more helpers is required for the patient to complete the activity. If activity was not attempted, code reason: 7-Patient Refused. 9-Not Applicable-not attempted and the patient did not perform the activity before the current illness, exacerbation or injury. 10-Not Attempted due to Environmental Limitations-(lack of equipment, weather restraints, etc.). 88-Not Attempted due to Medical Conditions or Safety Concerns. Lying to Sitting/Side of Bed(Q: 2 Sit to Stand (QC): 2 Chair/Ser-sq-Yrzfw Xfer(QC): 2 max assist with bed mobilty and transfers; difficulty initiating and following cues. Up to chair post visit with chair alarm activated. Weight Bearing Right Lower Extremity: Right Weight Bearing/Tolerated Left Lower Extremity: Left Weight Bearing/Tolerated Treatments Out of bed to chair. Nurse tech to assist with feeding pt after PT visit. Pt in chair with chair alarm activated. Assessment Current Status: Fair Progress Difficulty with being awake and difficulty following cues but did allow activity. PT Filter Washer Goals Filter Washer Goals PT Correction Goals Time Frame: Jan 17, 2021 Roll Left & Right (QC): 6 Sit to Lying (QC): 4 Lying-Sitting on Side/Bed(QC): 4 Sit to Stand (QC): 4 Chair/Itz-qv-Ghtei Xfer(QC): 4 Walk 10 feet (QC): 4 Walk 50ft with 2 Turns (QC): 4 PT Plan Problem List Problem List: Activity Tolerance, Functional Strength, Safety, Balance, Gait, Transfer, Bed Mobility Treatment/Plan Treatment Plan: Continue Plan of Care Treatment Plan: Bed Mobility, Education, Functional Activity [place], Functional Strength, Gait, Safety, Therapeutic Exercise, Transfers Treatment Duration: Jan 17, 2021 Frequency: 6 times per week Estimated Hrs Per Day: .25 hour per day Patient and/or Family Agrees t: Yes Safety Risks/Education Patient Education: Transfer Techniques, Safety Issues Teaching Recipient: Patient Teaching Methods: Demonstration Response to Teaching: Reinforcement Needed Discharge Recommendations Therapy Discharge Recommendati: Post Acute PT Time/GCodes Time In: 905 Time Out: 928 Total Billed Treatment Time: 23 Total Billed Treatment visit FA 23 PEDRO COOPER PT Jan 12, 2021 10:52
[2021-01-12] MEDS: KCL 20 MEQ TAB (K-DUR) PO ONE ×2 (11:41→11:44)
[2021-01-12 12:55] VITALS: BP 157/66
[2021-01-12 15:19] VITALS: BP 144/76
--- NOTE | 2021-01-12 15:56 | Progress Note ---
Subjective Subjective Date Seen by Provider: Jan 12, 2021 Time Seen by Provider: 14:30 Patient was sitting up in a chair this afternoon with female roping machine tender. He did not want to talk much- and shook his head when I informed him that he will need to go to [facility] for rehab. He did agree but was not happy about it. Denies any pain. Review of Systems General: No Chills, No Night Sweats HEENT: No Head Aches Pulmonary: No Dyspnea Cardiovascular: No: Chest Pain, Palpitations Gastrointestinal: No: Nausea, Vomiting Genitourinary: No Dysuria Musculoskeletal: other, hand pain (joint pain) Neurological: Weakness All Other Systems Reviewed All Other Systems Reviewed: Yes Objective Exam Vital Signs Vital Signs Date Time Temp Pulse Resp B/P (MAP) Pulse Ox O2 Delivery O2 Flow Rate FiO2 01/12/21 15:19 36.5 77 16 144/76 (98) 95 Room Air 01/12/21 12:55 36.2 74 16 157/66 (96) 96 Room Air 01/12/21 08:00 95 Room Air 01/12/21 07:49 36.0 71 18 141/78 (99) 95 Room Air 01/12/21 04:00 36.4 68 18 150/73 (98) 96 Room Air 01/11/21 23:56 36.0 67 20 170/77 (108) 97 Room Air 01/11/21 20:00 95 Room Air 01/11/21 19:06 36.3 73 18 130/65 (86) 98 Room Air I & O 01/12/21 07:00 Intake Total 102 ml Output Total 350 ml Balance -248 ml General Appearance: No Apparent Distress HEENT: PERRL/EOMI (sluggish) Neck: Non Tender, Supple Respiratory: Chest Non Tender, Lungs Clear, Normal Breath Sounds, No Accessory Muscle Use Cardiovascular: Regular Rate, Rhythm Gastrointestinal: Non Tender, Soft Rectal: Deferred Extremity: Non Tender, Pedal Edema, Other (weakness in right arm, right leg) Neurologic/Psychiatric: No Alert Skin: Warm/Dry Lymphatic: No Adenopathy Results Lab Laboratory Tests 01/11/21 20:01: Glucometer 156H 01/12/21 05:37: White Blood Count 5.9, Red Blood Count 4.79, Hemoglobin 15.1, Hematocrit 45, Mean Corpuscular Volume 94, Mean Corpuscular Hemoglobin 32, Mean Corpuscular Hemoglobin Concent 34, Red Cell Distribution Width 13.2, Platelet Count 226, Me an Platelet Volume 10.0, Immature Granulocyte % (Auto) 0, Neutrophils (%) (Auto) 64, Lymphocytes (%) (Auto) 22, Monocytes (%) (Auto) 8, Eosinophils (%) (Auto) 5, Basophils (%) (Auto) 1, Neutrophils # (Auto) 3.7, Lymphocytes # (Auto) 1.3, Monocytes # (Auto) 0.5, Eosinophils # (Auto) 0.3, Basophils # (Auto) 0.0, Immature Granulocyte # (Auto) 0.0, Sodium Level 140, Potassium Level 3.3L, Chloride Level 105, Carbon Dioxide Level 21, Anion Gap 14, Blood Urea Nitrogen 15, Creatinine 0.82, Estimat Glomerular Filtration Rate > 60, BUN/Creatinine Ratio 18, Glucose Level 141H, Calcium Level 8.7, Phosphorus Level 2.9, Magnesium Level 1.9 01/12/21 11:35: Glucometer 181H 01/12/21 15:23: Glucometer 125H Microbiology 01/07/21 MRSA Screen - Final, Complete 01/07/21 Urine Culture - Final, Complete NO GROWTH Assessment/Plan Assessment/Plan Admission Dx CVA Assessment and Plan admitted 01/07/21 for acute stroke. NIH scale went from 24 to a 10 with tPa. [facility] neurology was consulted. Head CTA did not show any infarct or clot. 01/08/21- will repeat CT of head post-24hour tPa. will order MRI head. PT/OT evaluation -obtaining hga1c 01/09/21- waiting for patient to wake up from being sedated on precedex. 24hour repeat CT negative for brain bleed. hga1c pending. PT/OT unable to evaluate patient due to sedation. Will hold on obtaining the MRI at this time as is it is not going to change our current care. 01/10/21- patient more awake today. PT/OT worked with patient today- both recommend 24 hour monitoring. Continue PT/OT. Will likely need placement rehab vs SNU. Stopped IVF. restarting plavix. Will not escalate up to warfarin. 01/11/21- Pt is not eating. In part because he has been getting geodon IM and this has sedated him. Need to try and not give it. But he has been combative at times. Continue with PT/OT. Will need placement. Case Management to discuss with family about placement or their plans. 01/12/21- working on placement. Patient is not eating. A little combative with staff. Stopping geodon injection. Will start zyprexa and see how he does with it. Bernadette and I both spoke with patient's daughter and we will attempt to get him to [facility] on Friday the . Patient's daughter found documents that make her DPOA of medical decisions. Per her, his wishes would be no interventions (feeding tube, no intubations, or major surgeries). So we will be monitoring how he does over the weekend because the combativeness is an issue. Dispo: monitor for acute changes in condition. Pt is DNR. 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 Admission Dx CVA Clinical Quality Measures Admission Status Admission Dx CVA Stroke: Date of last known well: Jan 07, 2021 Time of last known well: 15:00 Symptoms onset unknown: No RAINER MANN MD Jan 12, 2021 15:56
[2021-01-12 19:28] VITALS: BP 136/77
[2021-01-13] VITALS (7 sets, daily range): BP systolic 140–181; BP diastolic 66–86
[2021-01-13 05:49] LABS: BASOPHILS % (AUTO) 1 % (0-10); EOSINOPHILS # (AUTO) 0.3 10^3/uL (0.0-0.3); EOSINOPHILS % (AUTO) 4 % (0-10); HEMATOCRIT 45 % (40-54); HEMOGLOBIN 15.4 g/dL (13.3-17.7); LYMPHOCYTES % (AUTO) 27 % (12-44); MEAN CORPUSCULAR HEMOGLOBIN 32 pg (25-34); MEAN CORPUSCULAR HGB CONC 34 g/dL (32-36); MEAN CORPUSCULAR VOLUME 94 fL (80-99); MEAN PLATELET VOLUME 9.7 fL (9.0-12.2); MONOCYTES # (AUTO) 0.5 10^3/uL (0.0-1.0); MONOCYTES % (AUTO) 7 % (0-12); NEUTROPHILS # (AUTO) 4.8 10^3/uL (1.8-7.8); NEUTROPHILS % (AUTO) 62 % (42-75); PLATELET COUNT 240 10^3/uL (130-400); WHITE BLOOD COUNT 7.7 10^3/uL (4.3-11.0)
[2021-01-13 06:01] LABS: CHLORIDE 106 MMOL/L (98-107); POTASSIUM 3.5 MMOL/L (3.6-5.0); SODIUM 140 MMOL/L (135-145)
[2021-01-13 06:03] LABS: GLUCOSE 146 MG/DL (70-105)
[2021-01-13 06:05] LABS: CARBON DIOXIDE 19 MMOL/L (21-32)
[2021-01-13 06:07] LABS: CREATININE SERUM 0.86 MG/DL (0.60-1.30); GFR ESTIMATED > 60; PHOSPHORUS 2.9 MG/DL (2.3-4.7)
[2021-01-13] MEDS: inSUlin ASPART (NovoLOG) 1 UNIT/0.01 ML (CHARGE PER UNIT) SC SCH ×4 (06:07→20:29)
[2021-01-13 06:08] LABS: BUN/CREATININE RATIO 26
[2021-01-13 06:09] LABS: MAGNESIUM 2.1 MG/DL (1.6-2.4)
[2021-01-13] MEDS: KCL 20 MEQ TAB (K-DUR) PO SCH (06:20)
[2021-01-13] MEDS: SINEMET 25/100 (CARBIDOPA/LEVODOPA) TAB PO SCH ×4 (06:40→18:33)
[2021-01-13] MEDS ORDERED: KCL 20 MEQ TAB (K-DUR) PO ONE (09:00)
[2021-01-13] MEDS: amLODIPine 2.5MG (NORVASC) TAB PO SCH (09:40)
[2021-01-13] MEDS: meTOproloL SUCCINATE 50 MG (TOPROL XL) TAB PO SCH (09:40)
[2021-01-13] MEDS: CLOPIDOGREL 75 MG (PLAVIX) TABLET PO SCH (09:40)
[2021-01-13] MEDS ORDERED: ASPIRIN 81 MG CHEW (CHILDREN'S ASA) PO NR (10:45)
--- NOTE | 2021-01-13 10:49 | Progress Note ---
Subjective Date Seen by a Provider: Jan 13, 2021 Time Seen by a Provider: 10:43 Subjective/Events-last exam Fwup acute CVA, Hypertension, Parkinson's with dementia, agitation/comb ativeness. In bed and answers questions with No and Okay. Appetite still poor. Objective Exam Vital Signs Date Time Temp Pulse Resp B/P (MAP) Pulse Ox O2 Delivery O2 Flow Rate FiO2 01/13/21 08:00 95 Room Air 01/13/21 07:01 36.0 76 18 181/81 (114) 97 Room Air 01/13/21 04:00 36.4 81 18 170/86 (114) 97 Room Air 01/13/21 00:04 36.2 78 18 163/82 (109) 97 Room Air 01/12/21 23:14 95 Room Air 01/12/21 20:00 95 Room Air 01/12/21 19:28 36.1 82 18 136/77 (96) 96 Room Air 01/12/21 15:19 36.5 77 16 144/76 (98) 95 Room Air 01/12/21 12:55 36.2 74 16 157/66 (96) 96 Room Air I & O 01/13/21 07:00 Intake Total 150 ml Output Total 395 ml Balance -245 ml Capillary Refill : Less Than 3 Seconds General Appearance: No Apparent Distress Respiratory: Lungs Clear Cardiovascular: Regular Rate, Rhythm Gastrointestinal: normal bowel sounds, non tender, soft Extremity: Non Tender, No Calf Tenderness, No Pedal Edema Neurologic/Psychiatric: Alert Results Lab Laboratory Tests 01/12/21 11:35: Glucometer 181H 01/12/21 15:23: Glucometer 125H 01/12/21 20:23: Glucometer 145H 01/13/21 05:35: Glucometer 159H 01/13/21 05:40: White Blood Count 7.7, Red Blood Count 4.85, Hemoglobin 15.4, Hematocrit 45, Mean Corpuscular Volume 94, Mean Corpuscular Hemoglobin 32, Mean Corpuscular Hemoglobin Concent 34, Red Cell Distribution Width 13.2, Platelet Count 240, Mean Platelet Volume 9.7, Immature Granulocyte % (Auto) 0, Neutrophils (%) (Auto) 62, Lymphocytes (%) (Auto) 27, Monocytes (%) (Auto) 7, Eosinophils (%) (Auto) 4, Basophils (%) (Auto) 1, Neutrophils # (Auto) 4.8, Lymphocytes # (Auto) 2.0, Monocytes # (Auto) 0.5, Eosinophils # (Auto) 0.3, Basophils # (Auto) 0.0, Immature Granulocyte # (Auto) 0.0, Sodium Level 140, Potassium Level 3.5L, Chloride Level 106, Carbon Dioxide Level 19L, Anion Gap 15H, Blood Urea Nitrogen 22H, Creatinine 0.86, Estimat Glomerular Filtration Rate > 60, BUN/Creatinine Ratio 26, Glucose Level 146H, Calcium Level 9.0, Phosphorus Level 2.9, Magnesium Level 2.1 Microbiology 01/07/21 MRSA Screen - Final, Complete 01/07/21 Urine Culture - Final, Complete NO GROWTH Assessment/Plan Assessment/Plan Assess & Plan/Chief Complaint 1. Acute CVA with weakness, dysphagia and some expressive aphasia--S/P TPA--now on plavix, will add 81mg aspirin, doing PT/OT, plan is to SNF on Friday 2. Hypertension--stable 3. Parkinson's Dementia--back on Sinemet 4. Agitation/Combativeness--patient cooperative this morning 5. Dysphagia with Aspiration Risk--swallow eval completed but patient with poor oral intake 6. Hypokalemia--replace potassium 7. DMII--on accuchecks with SSI Clinical Quality Measures Stroke: Date of last known well: Jan 07, 2021 Time of last known well: 15:00 Symptoms onset unknown: LYRIC Bailon DO Jan 13, 2021 10:49
[2021-01-13] MEDS ORDERED: KCL 8 MEQ (MICRO K) TABLET PO NR (11:00)
--- NOTE | 2021-01-13 11:40 | Physical Therapy Daily Note ---
PT Daily Note-Current Subjective States that he is doing okay. Pain Numeric Pain Scale: 0-No Pain Transfers SCALE: Activities may be completed with or without assistive devices. 6-Bqkafjeeyv-gimnoly completes the activity by him/herself with no assistance from a helper. 5-Set-up or Clean-up Assistance-helper sets up or cleans up; patient completes activity. [place] assists only prior to or following the activity. 4-Supervision or Touching Assistance-helper provides verbal cues and/or touching/steadying and/or contact guard assistance as patient completes activity. Assistance may be provided throughout the activity or intermittently. 3-Partial/Moderate Assistance-helper does LESS THAN HALF the effort. [place] lifts, holds or supports trunk or limbs, but provides less than half the effort. 2-Substantial/Maximal Assistance-helper does MORE THAN HALF the effort. [place] lifts or holds trunk or limbs and provides more than half the effort. 4-Mevowhwrg-uborfj does ALL the effort. Patient does none of the effort to com plete the activity. Or, the assistance of 2 or more helpers is required for the patient to complete the activity. If activity was not attempted, code reason: 7-Patient Refused. 9-Not Applicable-not attempted and the patient did not perform the activity before the current illness, exacerbation or injury. 10-Not Attempted due to Environmental Limitations-(lack of equipment, weather restraints, etc.). 88-Not Attempted due to Medical Conditions or Safety Concerns. Roll Left & Right (QC): 4 Sit to Lying (QC): 4 Lying to Sitting/Side of Bed(Q: 4 Sit to Stand (QC): 4 Weight Bearing Right Lower Extremity: Right Weight Bearing/Tolerated Left Lower Extremity: Left Weight Bearing/Tolerated Gait Training Does the Patient Walk?: Yes Distance: 20' Walk 10 feet (QC): 5 Walk 50 ft with 2 Turns(QC): 88 Walk 150 ft (QC): 88 Assessment Current Status: Good Progress Patient did well with walking but did need verbal cues. PT Usp Goals Usp Goals PT Usp Goals Time Frame: Jan 17, 2021 Roll Left & Right (QC): 6 Sit to Lying (QC): 4 Lying-Sitting on Side/Bed(QC): 4 Sit to Stand (QC): 4 Chair/Jla-xp-Iihsj Xfer(QC): 4 Walk 10 feet (QC): 4 Walk 50ft with 2 Turns (QC): 4 PT Plan Treatment/Plan Treatment Plan: Continue Plan of Care Treatment Plan: Bed Mobility, Education, Functional Activity [place], Functional Strength, Gait, Safety, Therapeutic Exercise, Transfers Treatment Duration: Jan 17, 2021 Frequency: 6 times per week Estimated Hrs Per Day: .25 hour per day Patient and/or Family Agrees t: Yes Time/GCodes Time In: 1115 Time Out: 1125 Total Billed Treatment Time: 10 Total Billed Treatment 1, FA x 10' DANIELLE TRINIDAD PT Jan 13, 2021 11:40
[2021-01-13] MEDS: OLANZapine 2.5 MG (ZyPREXA) TAB PO SCH (20:29)
[2021-01-14 04:00] VITALS: BP 179/86
[2021-01-14] MEDS: inSUlin ASPART (NovoLOG) 1 UNIT/0.01 ML (CHARGE PER UNIT) SC SCH ×4 (05:13→21:33)
[2021-01-14] MEDS: KCL 8 MEQ (MICRO K) TABLET PO SCH (06:02)
[2021-01-14] MEDS: SINEMET 25/100 (CARBIDOPA/LEVODOPA) TAB PO SCH ×4 (06:02→18:23)
[2021-01-14] MEDS: KCL 20 MEQ TAB (K-DUR) PO SCH (06:02)
[2021-01-14 06:35] LABS: BASOPHILS % (AUTO) 0 % (0-10); EOSINOPHILS # (AUTO) 0.2 10^3/uL (0.0-0.3); EOSINOPHILS % (AUTO) 3 % (0-10); HEMATOCRIT 44 % (40-54); HEMOGLOBIN 15.1 g/dL (13.3-17.7); LYMPHOCYTES # (AUTO) 2.2 10^3/uL (1.0-4.0); LYMPHOCYTES % (AUTO) 31 % (12-44); MEAN CORPUSCULAR HEMOGLOBIN 32 pg (25-34); MEAN CORPUSCULAR HGB CONC 34 g/dL (32-36); MEAN CORPUSCULAR VOLUME 94 fL (80-99); MEAN PLATELET VOLUME 9.7 fL (9.0-12.2); MONOCYTES # (AUTO) 0.6 10^3/uL (0.0-1.0); MONOCYTES % (AUTO) 9 % (0-12); NEUTROPHILS % (AUTO) 56 % (42-75); PLATELET COUNT 244 10^3/uL (130-400)
[2021-01-14 06:46] LABS: CHLORIDE 107 MMOL/L (98-107); POTASSIUM 4.1 MMOL/L (3.6-5.0); SODIUM 142 MMOL/L (135-145)
[2021-01-14 06:47] LABS: CALCIUM 9.1 MG/DL (8.5-10.1)
[2021-01-14 06:48] LABS: GLUCOSE 156 MG/DL (70-105)
[2021-01-14 06:49] LABS: CARBON DIOXIDE 22 MMOL/L (21-32)
[2021-01-14 06:51] LABS: PHOSPHORUS 2.7 MG/DL (2.3-4.7)
[2021-01-14 06:52] LABS: CREATININE SERUM 0.93 MG/DL (0.60-1.30); GFR ESTIMATED > 60
[2021-01-14 06:53] LABS: BUN/CREATININE RATIO 32
[2021-01-14 06:54] LABS: MAGNESIUM 2.1 MG/DL (1.6-2.4)
[2021-01-14 08:33] VITALS: BP 156/72
[2021-01-14] MEDS: meTOproloL SUCCINATE 50 MG (TOPROL XL) TAB PO SCH (09:57)
[2021-01-14] MEDS: OLANZapine 2.5 MG (ZyPREXA) TAB PO SCH (09:57)
[2021-01-14] MEDS: amLODIPine 2.5MG (NORVASC) TAB PO SCH (09:57)
[2021-01-14] MEDS: ASPIRIN 81 MG CHEW (CHILDREN'S ASA) PO SCH (09:57)
[2021-01-14] MEDS: CLOPIDOGREL 75 MG (PLAVIX) TABLET PO SCH (09:58)
--- NOTE | 2021-01-14 10:01 | Progress Note ---
Subjective Date Seen by a Provider: Jan 14, 2021 Time Seen by a Provider: 09:59 Subjective/Events-last exam Fwup acute CVA, Hypertension, Parkinson's with dementia, agitation/comb ativeness. Groggy but awakens and answers questions with some full sentences this morning. Appetite still poor per aide. Objective Exam Vital Signs Date Time Temp Pulse Resp B/P (MAP) Pulse Ox O2 Delivery O2 Flow Rate FiO2 01/14/21 08:33 36.0 67 17 156/72 (100) 96 Room Air 01/14/21 04:00 36.0 62 17 179/86 (117) 96 Room Air 01/13/21 23:26 36.0 65 18 170/77 (108) 96 Room Air 01/13/21 20:00 95 Room Air 01/13/21 19:11 36.2 65 18 152/71 (98) 95 Room Air 01/13/21 15:18 36.4 67 16 140/66 (90) 95 Room Air 01/13/21 11:14 36.4 80 18 158/79 (105) 96 Room Air I & O 01/14/21 06:59 Intake Total 450 ml Output Total 675 ml Balance -225 ml Capillary Refill : Less Than 3 Seconds General Appearance: No Apparent Distress Respiratory: Lungs Clear Cardiovascular: Regular Rate, Rhythm Gastrointestinal: normal bowel sounds, non tender, soft Extremity: Non Tender, No Calf Tenderness, No Pedal Edema Neurologic/Psychiatric: Alert, Oriented x3 Results Lab Laboratory Tests 01/13/21 10:44: Glucometer 213H 01/13/21 15:16: Glucometer 111H 01/13/21 20:21: Glucometer 151H 01/14/21 05:11: Glucometer 159H 01/14/21 06:26: White Blood Count 7.0, Red Blood Count 4.72, Hemoglobin 15.1, Hematocrit 44, Mean Corpuscular Volume 94, Mean Corpuscular Hemoglobin 32, Mean Corpuscular Hemoglobin Concent 34, Red Cell Distribution Width 13.2, Platelet Count 244, Mean Platelet Volume 9.7, Immature Granulocyte % (Auto) 0, Neutrophils (%) (Auto) 56, Lymphocytes (%) (Auto) 31, Monocytes (%) (Auto) 9, Eosinophils (%) (Auto) 3, Basophils (%) (Auto) 0, Neutrophils # (Auto) 4.0, Lymphocytes # (Auto) 2.2, Monocytes # (Auto) 0.6, Eosinophils # (Auto) 0.2, Basophils # (Auto) 0.0, Immature Granulocyte # (Auto) 0.0, Sodium Level 142, Potassium Level 4.1, Chloride Level 107, Carbon Dioxide Level 22, Anion Gap 13, Blood Urea Nitrogen 30H, Creatinine 0.93, Estimat Glomerular Filtration Rate > 60, BUN/Creatinine Ratio 32, Glucose Level 156H, Calcium Level 9.1, Phosphorus Level 2.7, Magnesium Level 2.1 Microbiology 01/07/21 MRSA Screen - Final, Complete 01/07/21 Urine Culture - Final, Complete NO GROWTH Assessment/Plan Assessment/Plan Assess & Plan/Chief Complaint 1. Acute CVA with weakness, dysphagia and some expressive aphasia--S/P TPA--now on plavix and 81mg aspirin, doing PT/OT, plan is to SNF tomorrow 2. Hypertension--stable 3. Parkinson's Dementia--back on Sinemet 4. Agitation/Combativeness--patient cooperative this morning 5. Dysphagia with Aspiration Risk--swallow eval completed but patient with poor oral intake 6. Hypokalemia--improved 7. DMII--on accuchecks with SSI Clinical Quality Measures Stroke: Date of last known well: Jan 07, 2021 Time of last known well: 15:00 Symptoms onset unknown: LYRIC Bailon DO Jan 14, 2021 10:01
[2021-01-14 14:53] VITALS: BP 143/75
[2021-01-14 15:32] VITALS: BP 158/71
[2021-01-14 19:31] VITALS: BP 114/52
[2021-01-14 23:21] VITALS: BP 164/81
[2021-01-15 03:43] VITALS: BP 158/74
[2021-01-15] MEDS: KCL 8 MEQ (MICRO K) TABLET PO SCH (07:00)
[2021-01-15] MEDS: inSUlin ASPART (NovoLOG) 1 UNIT/0.01 ML (CHARGE PER UNIT) SC SCH ×2 (07:00→11:00)
[2021-01-15] MEDS: KCL 20 MEQ TAB (K-DUR) PO SCH (07:00)
[2021-01-15] MEDS: SINEMET 25/100 (CARBIDOPA/LEVODOPA) TAB PO SCH ×2 (07:00→12:01)
[2021-01-15 07:55] VITALS: BP 175/79
[2021-01-15] MEDS: ASPIRIN 81 MG CHEW (CHILDREN'S ASA) PO SCH ×2 (09:00→10:28)
[2021-01-15] MEDS: amLODIPine 2.5MG (NORVASC) TAB PO SCH ×2 (09:00→10:28)
[2021-01-15] MEDS: CLOPIDOGREL 75 MG (PLAVIX) TABLET PO SCH ×2 (09:00→10:28)
[2021-01-15] MEDS: OLANZapine 2.5 MG (ZyPREXA) TAB PO SCH ×2 (09:00→10:28)
[2021-01-15] MEDS: meTOproloL SUCCINATE 50 MG (TOPROL XL) TAB PO SCH ×2 (09:00→10:28)
[2021-01-15] MEDS ORDERED: OLAN2.5T27 PO (11:34)
--- NOTE | 2021-01-15 11:36 | Discharge Inst-Skilled Nursing ---
Discharge Inst-Skilled NF Patient Instructions Patient Problems: right side of body stroke- s/p tPa with improvement. dementia Parkinson disease weakness added zyprexa for his behaviors since having the stroke. Goal: work with PT/OT/ST and see if he will be able return home. He has made some progress while inpatient Consult/Follow Up/Orders Follow Up Appt.: tele call with [facility] in 2 weeks. Skilled NF Admit to: [facility] ([facility]) I certify that SNF services are required to be given on an inpatient basis because of the above named patient's need for jail care on a continuing basis for the conditions(s) for which he/she was receiving inpatient hospital services prior to his/her transfer to the SNF. [facility] Facility Order: Nursing Services, Liquid Flavor Compounder-Evaluate & Treat, Physical Therapy-Evaluate & Treat, Speech Language-Evaluate & Treat Oxygen Delivery Method: Room Air Discharge Diet: Other Diet (dysphagia I- pureed- Speech therapy to advance as tolerated. ) Daily Activity as Tolerated: Yes Resuscitation Status: Do Not Resuscitate New & Resume Previous Orders Rufino Mann Jan 15, 2021 11:34 RUFINO MANN MD Jan 15, 2021 11:36
--- NOTE | 2021-01-15 11:45 | Occupational Ther Daily Note ---
OT Current Status-Daily Note Subjective Pt's eyes closed intermittently throughout session. Pt requires encouragement to participate minimally with OT this session. Mental Status/Objective Patient Orientation: Person ADL-Treatment ANDERSON handed pt warm bath wipe and pt washed face. When asked to wash arms, pt stated that he had already done that and can't do it now. Attempted to get pt to complete oral care, refusal. Pt did complete 7 reps of shldr flexion with hand held guidance then pt was finished and refused to do any more. After session, pt lying in bed with call light/phone in reach. Safety measures in place. All needs met. Therapy Code Descriptions/Definitions Functional [place] Measure: 0=Not Assessed/NA 4=Minimal Assistance 1=Total Assistance 5=Supervision or Setup 2=Maximal Assistance 6=Modified [place] 3=Moderate Assistance 7=Complete IndependenceSCALE: Activities may be completed with or without assistive devices. 7-Bnhnfpiqdn-cuiuavj completes the activity by him/herself with no assistance from a helper. 5-Set-up or Clean-up Assistance-helper sets up or cleans up; patient completes activity. [place] assists only prior to or following the activity. 4-Supervision or Touching Assistance-helper provides verbal cues and/or touching/steadying and/or contact guard assistance as patient completes acti vity. Assistance may be provided throughout the activity or intermittently. 3-Partial/Moderate Assistance-helper does LESS THAN HALF the effort. [place] lifts, holds or supports trunk or limbs, but provides less than half the effort. 2-Substantial/Maximal Assistance-helper does MORE THAN HALF the effort. [place] lifts or holds trunk or limbs and provides more than half the effort. 5-Pzjhitoio-manzpa does ALL the effort. Patient does none of the effort to complete the activity. Or, the assistance of 2 or more helpers is required for the patient to complete the activity. If activity was not attempted, code reason: 7-Patient Refused. 9-Not Applicable-not attempted and the patient did not perform the activity before the current illness, exacerbation or injury. 10-Not Attempted due to Environmental Limitations-(lack of equipment, weather restraints, etc.). 88-Not Attempted due to Medical Conditions or Safety Concerns. OT Shelter Goals Shelter Goals Time Frame: Jan 17, 2021 Eating (QC): 3 Oral Hygiene (QC): 3 Toileting Hygiene (QC): 3 Shower/Bathe Self (QC): 3 Upper Body Dressing (QC): 3 Lower Body Dressing (QC): 2 On/Off Footwear (QC): 2 Additional Goals: 1-Demonstrate ADL Tasks, 2-Verbalize Understanding, 3- ImproveStrength/[place] 1=Demonstrate adherence to instructed precautions during ADL tasks. 2=Patient will verbalize/demonstrate understanding of assistive devices/modifications for ADL. 3=Patient will improve strength/tolerance for activity to enable patient to perform ADL's. OT Education/Plan Problem List/Assessment Assessment: Decreased Activ Tolerance, Decreased Safety Aware, Dependent Transfers, Impaired Cognition, Impaired Self-Care Skills Discharge Recommendations Plan/Recommendations: Continue POC Treatment Plan/Plan of Care Patient would benefit from OT for education, treatment and training to promote independence in ADL's, mobility, safety and/or upper extremity function for ADL's. Plan of Care: ADL Retraining, Caregiver Training, Concurrent Therapy, Functional Mobility, Group Exercise/Act as Ind, UE Funct Exercise/Act, UE Neuro mus Re-Ed/Coord, W/C Management Training Treatment Duration: Jan 17, 2021 Frequency: 5 times per week Estimated Hrs Per Day: .25 hour per day Agreement: Yes Rehab Potential: Guarded Time/GCodes Start Time: 11:32 Stop Time: 11:40 Total Time Billed (hr/min): 8 Billed Treatment Time 1 visit-FA 1 (8 min) PEDRO GRIFFITHS Jan 15, 2021 11:45
[2021-01-15 14:52] VITALS: BP 175/79
--- NOTE | 2021-01-16 23:18 | Discharge Summary ---
Discharge Summary Hospital Course Was the Problem List Reviewed?: Yes Problems/Dx: (1) CVA (cerebral vascular accident) Status: Acute Qualifiers: (2) Type 2 diabetes mellitus with diabetic chronic kidney disease (3) Hypokalemia (4) Dementia, vascular (5) Parkinson disease (6) HTN (hypertension) Qualifiers: Qualified Codes: I10 - Essential (primary) hypertension Hospital Course Date of Admission: Jan 07, 2021 at 18:30 Admission Diagnosis : (1) CVA (cerebral vascular accident) Qualifiers: Assessment & Plan: right facial droop, right arm weakness, right leg weakness, expressive aphasia, dysphagia (2) Type 2 diabetes mellitus with diabetic chronic kidney disease Assessment & Plan: Hga1c 6.4 (3) Hypokalemia Assessment & Plan: replacing (4) Dementia, vascular (5) Parkinson disease (6) HTN (hypertension) Qualifiers: Qualified Codes: I10 - Essential (primary) hypertension Family Physician/Provider: Rufino Mann MD Date of Discharge: 01/16/21 Discharge Diagnosis: (1) CVA (cerebral vascular accident) Qualifiers: Assessment & Plan: right facial droop, right arm weakness, right leg weakness, expressive aphasia, dysphagia (2) Type 2 diabetes mellitus with diabetic chronic kidney disease Assessment & Plan: Hga1c 6.4 (3) Hypokalemia Assessment & Plan: replacing (4) Dementia, vascular (5) Parkinson disease (6) HTN (hypertension) Qualifiers: Qualified Codes: I10 - Essential (primary) hypertension Hospital Course: 85 yo M admitted for a stroke affecting his right side. Last known well at 1500. EMS brought patient to the ER. Patient does have diabetes that is well controlled. His CKD III has stabilized with addition of Farxiga last year. Per ER report: He got his second dose of Covid vaccine 01/05/21 and was having headache, irritability and diarrhea as well as increased somnolence throughout the day. He is a diabetic and blood sugar was 79 per EMS. Daughter clarifies the patient has not been having any fever and the diarrhea is chronic. Some head aches and irritability however yesterday they thought was related to the second dose of his Covid vaccine. He is ambulatory at baseline. He is conversational at baseline. He did receive tPA with improvement in his NIH score. Patient declined transfer to and does not want any surgery or significant intervention. He has held this decision since his years ago in which they had discussed through her medical decline. Patient slowly improved but not to the degree we wanted. He was combative at times, refused to take medication and did not eat much of his diet besides last 1-2 days inpatient. He did eat about 25% of meals. He did participate with OT/PT the last few days and even walked with a walker and verbal ques. His right sided stroke did not worsen- it did slowing improve but still has right arn, right leg weakness as well as expressive aphasia, dysphagia. He was deemed stable for discharge to [facility]. Labs and Pending Lab Test: Microbiology 01/07/21 MRSA Screen - Final, Complete 01/07/21 Urine Culture - Final, Complete NO GROWTH Home Meds Active Olanzapine 2.5 Mg Tablet 2.5 Mg PO DAILY Reported Cetirizine HCl 10 Mg Tablet 10 Mg PO DAILY PRN Losartan Potassium 50 Mg Tablet 50 Mg PO DAILY Tylenol (Acetaminophen) 325 Mg Tablet 650 Mg PO Q6H PRN TAKES 2 (325MG) TABLETS Metformin HCl 500 Mg Tablet 500 Mg PO 1800 W/SUPPER Metformin HCl 500 Mg Tablet 1,000 Mg PO DAILY W/BREAKFAST TAKES 2 (500MG) TABLETS WITH BREAKFAST Carbidopa-Levodopa 25-100 Tab (Carbidopa/Levodopa) 1 Each Tablet 2 Each PO 1800 TAKES 2 TABLETS Aspirin EC (Aspirin) 81 Mg Tablet.dr 81 Mg PO DAILY Metoprolol Succinate 50 Mg Tab.er.24h 50 Mg PO DAILY Carbidopa-Levodopa 25-100 Tab (Carbidopa/Levodopa) 1 Each Tablet 1 Tab PO 0700,1200 Glimepiride 4 Mg Tablet 4 Mg PO BIDAC Clopidogrel (Clopidogrel Bisulfate) 75 Mg Tablet 75 Mg PO DAILY Amlodipine Besylate 2.5 Mg Tablet 2.5 Mg PO DAILY Assessment/Pt Instructions see discharge instructions. Discharge Planning: >30 minutes discharge planning Discharge Instructions Discharge Diet: Other Diet (dysphagia I- pureed- Speech therapy to advance as tolerated. ) Discharge Physical Examination Vital Signs Vital Signs Date Time Temp Pulse Resp B/P (MAP) Pulse Ox O2 Delivery O2 Flow Rate FiO2 01/15/21 14:52 36.3 65 17 175/79 98 Room Air Allergies: Coded Allergies: meperidine (Verified Allergy, Mild, 01/11/09) Discharge Summary Date of Admission Jan 07, 2021 at 18:30 Date of Discharge Jan 15, 2021 at 14:52 Discharge Diagnosis (1) CVA (cerebral vascular accident) Status: Acute Assessment & Plan: right facial droop, right arm weakness, right leg weakness, expressive aphasia, dysphagia Qualifiers: (2) Type 2 diabetes mellitus with diabetic chronic kidney disease Assessment & Plan: Hga1c 6.4 (3) Hypokalemia Assessment & Plan: replacing (4) Dementia, vascular (5) Parkinson disease (6) HTN (hypertension) Assessment & Plan: restart home medications. Qualifiers: Qualified Codes: I10 - Essential (primary) hypertension Clinical Quality Measures Stroke: Date of last known well: Jan 07, 2021 Time of last known well: 15:00 Symptoms onset unknown: No RUFINO MANN MD Jan 16, 2021 23:17
== END 2021-01-15 14:52 | DRG 62 ==
LOC: EDUNIT# 16:03 → ER 16:04 → ICU 18:30 → 4TH 01-10 09:13
PROVIDERS: ADMIT Family Medicine; ATTEND Family Medicine
DX: I63.9 Cerebral infarction, unspecified (principal); N17.9 Acute kidney failure, unspecified; R29.810 Facial weakness; R47.01 Aphasia; R47.1 Dysarthria and anarthria; R29.724 NIHSS score 24; G20 Parkinson's disease; Z66 Do not resuscitate; M19.91 Primary osteoarthritis, unspecified site; Z87.01 Personal history of pneumonia (recurrent); Z87.891 Personal history of nicotine dependence; H54.61 Unqualified visual loss, right eye, normal vision left eye; Z87.828 Personal history of other (healed) physical injury and trauma; Z79.84 Long term (current) use of oral hypoglycemic drugs; Z79.82 Long term (current) use of aspirin; Z88.6 Allergy status to analgesic agent; E11.22 Type 2 diabetes mellitus with diabetic chronic kidney disease; E87.6 Hypokalemia; F01.50 Vascular dementia, unspecified severity, without behavioral disturbance, psychotic disturbance, mood disturbance, and anxiety; I10 Essential (primary) hypertension; N18.30 Chronic kidney disease, stage 3 unspecified; Z90.49 Acquired absence of other specified parts of digestive tract; M19.90 Unspecified osteoarthritis, unspecified site
CPT/HCPCS: 36415; 51702; 70450; 70496; 70498; 71045; 80048; 80053; 80061; 81000; 82962; 83036; 83735; 84100; 84484; 85025; 85379; 85610; 85730; 87081; 87088; 93005; 93041; 94760; 96374

== ENCOUNTER 2021-10-11 08:15 | Emergency (ER) | payer MEDICARE, OTHER ==
[~2021-10-11] VITALS: Ht 182 cm; Wt 84.7 kg
[~2021-10-11 08:15] MED LIST changes: +ACET325T38 PO; +ASPI-1238 PO; +CETI10TA17 PO; +LOSA50TA63 PO; +OLAN2.5T27 PO; -SULF1TAB35 PO; +SULF1TAB38 PO
[2021-10-11] MEDS ORDERED: LACTATED RINGERS 1,000 ML IV ONE ×2 (08:22→08:30)
[2021-10-11] MEDS ORDERED: DEXTROSE 50% 50 ML (IMS) SYR IV ONE (08:30)
[2021-10-11 08:31] LABS: BASOPHILS % (AUTO) 0 % (0-10); EOSINOPHILS # (AUTO) 0.2 10^3/uL (0.0-0.3); EOSINOPHILS % (AUTO) 2 % (0-10); HEMATOCRIT 41 % (40-54); HEMOGLOBIN 14.1 g/dL (13.3-17.7); LYMPHOCYTES # (AUTO) 2.1 10^3/uL (1.0-4.0); LYMPHOCYTES % (AUTO) 27 % (12-44); MEAN CORPUSCULAR HEMOGLOBIN 31 pg (25-34); MEAN CORPUSCULAR HGB CONC 35 g/dL (32-36); MEAN CORPUSCULAR VOLUME 88 fL (80-99); MEAN PLATELET VOLUME 9.1 fL (9.0-12.2); MONOCYTES # (AUTO) 0.5 10^3/uL (0.0-1.0); MONOCYTES % (AUTO) 7 % (0-12); NEUTROPHILS # (AUTO) 5.1 10^3/uL (1.8-7.8); NEUTROPHILS % (AUTO) 64 % (42-75); PLATELET COUNT 254 10^3/uL (130-400)
--- NOTE | 2021-10-11 08:33 | ED Neurological Problem ---
General Chief Complaint: Neuro-Stroke Like Symptoms Stated Complaint: STROKE LIKE SYMPTOMS Nursing Triage Note: PT BROUGHT IN BY [facility] FROM [facility] WITH COMPLAINT OF STROKE LIKE SYMPTOMS. PT WAS REPORTED TO HAVE RIGHT SIDED FACIAL DROOPING. LKWT LAST NIGHT. PER EMS, BS WAS IN THE 30s. DID NOT START LINE OR GIVE ORAL GLUCOSE. UNABLE TO OBTAIN NIH ON ARRIVAL. BS 34 ON ARRIVAL TO ED. AMP D50 GIVEN. PRIOR HX OF STROKE IN JANUARY. Source: patient, EMS, group home records Exam Limitations: no limitations History of Present Illness Date Seen by Provider: Oct 11, 2021 Time Seen by Provider: 08:21 Initial Comments Patient to the ER by EMS from [facility] where he was staying after a stroke and today having chief complaint of right-sided facial drooping, decreased level of consciousness. Last known well time was sometime last night around 10. EMS states that staff told them they heard him moaning overnight but did not notice anything wrong with him. He was checked this morning and found to have right facial droop. He has a history of strokes/TIA with some garbled speech as a residual deficit. No recent illness or sick contacts. EMS reports patient has a blood sugar of 30 and were unable to establish an IV on route. He is unable to tolerate oral glucose because he was not protecting his airway or following commands Allergies and Home Medications Allergies Coded Allergies: meperidine (Verified Allergy, Mild, 01/11/09) Patient Home Medication List Home Medication List Reviewed: Yes Acetaminophen (Tylenol) 325 Mg Tablet, 650 MG PO Q6H PRN for PAIN-MILD (1-4), (Reported) Entered as Reported by: OSEI CONKLIN on 01/08/21 1242 Amlodipine Besylate (Amlodipine Besylate) 2.5 Mg Tablet, 2.5 MG PO DAILY, (Reported) Entered as Reported by: CRYS DURHAM on 06/10/16 1151 Aspirin (Aspirin EC) 81 Mg Tablet.dr, 81 MG PO DAILY, (Reported) Entered as Reported by: OSEI CONKLIN on 01/08/21 1242 Carbidopa/Levodopa (Carbidopa-Levodopa 25-100 Tab) 1 Each Tablet, 1 TAB PO 0700,1200, (Reported) Entered as Reported by: POOJA GARNICA on 12/24/16 1233 Carbidopa/Levodopa (Carbidopa-Levodopa 25-100 Tab) 1 Each Tablet, 2 EACH PO 1800, (Reported) Entered as Reported by: OSEI CONKLIN on 01/08/21 1242 Cetirizine HCl (Cetirizine HCl) 10 Mg Tablet, 10 MG PO DAILY PRN for ALLERGIES, (Reported) Entered as Reported by: OSEI CONKLIN on 01/08/21 1244 Clopidogrel Bisulfate (Clopidogrel) 75 Mg Tablet, 75 MG PO DAILY, (Reported) Entered as Reported by: POOJA GARNICA on 12/24/16 1233 Glimepiride (Glimepiride) 4 Mg Tablet, 4 MG PO BIDAC, (Reported) Entered as Reported by: POOJA GARNICA on 12/24/16 1233 Lorazepam (Lorazepam Intensol) 2 Mg/1 Ml Oral.conc, 2 MG PO Q2H PRN for AGITATION Prescribed by: MARICRUZ RODRÍGUEZ on 10/11/21 1214 Losartan Potassium (Losartan Potassium) 50 Mg Tablet, 50 MG PO DAILY, (Reported) Entered as Reported by: OSEI CONKLIN on 01/08/21 1244 Metformin HCl (Metformin HCl) 500 Mg Tablet, 1,000 MG PO DAILY W/BREAKFAST, (Reported) Entered as Reported by: OSEI CONKLIN on 01/08/21 1242 Metformin HCl (Metformin HCl) 500 Mg Tablet, 500 MG PO 1800 W/SUPPER, (Reported) Entered as Reported by: OSEI CONKLIN on 01/08/21 1242 Metoprolol Succinate (Metoprolol Succinate) 50 Mg Tab.er.24h, 50 MG PO DAILY, (Reported) Entered as Reported by: POOJA GARNICA on 12/24/16 1244 Morphine Sulfate (Morphine Sulfate) 20 Mg/5 Ml Solution, 10 MG PO Q2H PRN for PAIN-BREAKTHROUGH Prescribed by: MARICRUZ RODRÍGUEZ on 10/11/21 1214 Olanzapine (Olanzapine) 2.5 Mg Tablet, 2.5 MG PO DAILY Prescribed by: RUFINO MANN on 01/15/21 1134 Review of Systems Review of Systems Constitutional: No chills, No diaphoresis Eyes: Denies Blindness, Denies Blurred Vision Ears, Nose, Mouth, Throat: denies ear pain, denies ear discharge Respiratory: No cough, No short of breath Cardiovascular: No chest pain, No palpitations Gastrointestinal: No abdominal pain, No nausea, No vomiting Genitourinary: No discharge, No dysuria All Other Systems Reviewed Negative Unless Noted: Yes Past Bahajsk-Bjwmfi-Dfygyr Hx Patient Social History Tobacco Use?: No Use of E-Cig and/or Vaping dev: No Immunizations Up To Date Tetanus Booster (TDap): Unknown Seasonal Allergies Seasonal Allergies: No Past Medical History Surgeries: Yes (SKIN LESION) Appendectomy, Gallbladder Respiratory: No Pneumonia Cardiac: Yes Neurological: Yes Reproductive Disorders: No Sexually Transmitted Disease: Yes HIV/AIDS: No Gastrointestinal: Yes Chronic Constipation Musculoskeletal: Yes Arthritis Endocrine: Yes Diabetes, Non-Insulin dep Cataract Loss of Vision: Right Hearing Impairment: Denies Cancer: Yes Skin Psychosocial: No Integumentary: Yes (HISTORY OF RIGHT FOOT CELLULITIS 2008--[facility]SA. ALSO HX OF TINEA PEDIS) Recent Skin Changes Blood Disorders: No Adverse Reaction/Blood Tranf: No Family Medical History Alzheimer's disease Cardiovascular disease Diabetes mellitus Physical Exam Vital Signs Vital Signs - First Documented 10/11/21 08:15 Temp 36.2 Pulse 71 Resp 16 B/P (MAP) 177/92 (120) Pulse Ox 100 O2 Delivery Room Air Capillary Refill : Less Than 3 Seconds Height, Weight, BMI Height: 5'8.00" Weight: 200lbs. 8.0oz. [id number]; 25.00 BMI Method:Stated General Appearance: WD/WN, moderate distress HEENT: PERRL/EOMI, pharynx normal Neck: full range of motion, normal inspection Respiratory: lungs clear, normal breath sounds, no respiratory distress, no accessory muscle use Cardiovascular: normal peripheral pulses, regular rate, rhythm Gastrointestinal: normal bowel sounds, non tender, soft Extremities: non-tender, normal inspection Neurologic/Psychiatric: other (Face is drooping towards gravity on the right side and GCS of 8. GCS 14 after administration of dextrose and facial droop disappeared. NIH 0 points after glucose.) Crainal Nerves: other (After glucose the patient speaks in short phrases but does not answer questions appropriately. He does regard when asked his name.) Skin: normal color, warm/dry Stroke NIH Stroke Scale Assessment Gaze: Normal (0), Total: Stroke Thrombolytic Exclusion Age 18 or Over: Yes Acute intenal hemorrhage: No History of CVA: No Uncontrolled Coagulation Defec: No Intracranial Hemorrhage: No Severe Hypertension: No GI or Bleed: No Subarachnoid Hemorrhage: No Intracranial Neoplasm/Aneurysm: No Oral Anticoagulants: No Surgery or Trauma: No Puncture of Non-Compressible V: No Recent CPR: No Diabetic Hemorrhagic Retinopat: No Organ Biopsy: No Recent Obstetric Delivery: No Glucose: No Significant Hepatic Dysfunctio: No NIH Stoke Scale >22: No Bacterial Endocarditis: No Pericarditis: No Improving Symptoms: No Platelets: No Progress/Results/Core Measures Results/Orders Lab Results Laboratory Tests Test 10/11/21 08:20 10/11/21 08:39 10/11/21 09:02 10/11/21 09:51 Range/Units White Blood Count 8.0 4.3-11.0 10^3/uL Red Blood Count 4.61 4.30-5.52 10^6/uL Hemoglobin 14.1 13.3-17.7 g/dL Hematocrit 41 40-54 % Mean Corpuscular Volume 88 80-99 fL Mean Corpuscular Hemoglobin 31 25-34 pg Mean Corpuscular Hemoglobin Concent 35 32-36 g/dL Red Cell Distribution Width 13.2 10.0-14.5 % Platelet Count 254 130-400 10^3/uL Mean Platelet Volume 9.1 9.0-12.2 fL Immature Granulocyte % (Auto) 0 % Neutrophils (%) (Auto) 64 42-75 % Lymphocytes (%) (Auto) 27 12-44 % Monocytes (%) (Auto) 7 0-12 % Eosinophils (%) (Auto) 2 0-10 % Basophils (%) (Auto) 0 0-10 % Neutrophils # (Auto) 5.1 1.8-7.8 10^3/uL Lymphocytes # (Auto) 2.1 1.0-4.0 10^3/uL Monocytes # (Auto) 0.5 0.0-1.0 10^3/uL Eosinophils # (Auto) 0.2 0.0-0.3 10^3/uL Basophils # (Auto) 0.0 0.0-0.1 10^3/uL Immature Granulocyte # (Auto) 0.0 0.0-0.1 10^3/uL Sodium Level 140 135-145 MMOL/L Potassium Level 4.3 3.6-5.0 MMOL/L Chloride Level 103 98-107 MMOL/L Carbon Dioxide Level 27 21-32 MMOL/L Anion Gap 10 5-14 MMOL/L Blood Urea Nitrogen 14 7-18 MG/DL Creatinine 0.80 0.60-1.30 MG/DL Estimat Glomerular Filtration Rate 91 BUN/Creatinine Ratio 18 Glucose Level 39 *L 70-105 MG/DL Glucometer 34 *L 108 77 70-110 MG/DL Calcium Level 9.3 8.5-10.1 MG/DL Corrected Calcium 9.5 8.5-10.1 MG/DL Total Bilirubin 0.6 0.1-1.0 MG/DL Aspartate Amino Transf (AST/SGOT) 13 5-34 U/L Alanine Aminotransferase (ALT/SGPT) 10 0-55 U/L Alkaline Phosphatase 57 40-136 U/L Total Protein 6.3 L 6.4-8.2 GM/DL Albumin 3.7 3.2-4.5 GM/DL Urine Color YELLOW Urine Clarity CLEAR Urine pH 7.0 5-9 Urine Specific Mertens 1.015 L 1.016-1.022 Urine Protein NEGATIVE NEGATIVE Urine Glucose (UA) TRACE H NEGATIVE Urine Ketones NEGATIVE NEGATIVE Urine Nitrite NEGATIVE NEGATIVE Urine Bilirubin NEGATIVE NEGATIVE Urine Urobilinogen 2.0 < = 1.0 MG/DL Urine Leukocyte Esterase NEGATIVE NEGATIVE Urine RBC (Auto) NEGATIVE NEGATIVE Urine RBC RARE /HPF Urine WBC RARE /HPF Urine Crystals NONE /LPF Urine Bacteria NEGATIVE /HPF Urine Casts NONE /LPF Urine Mucus NEGATIVE /LPF Urine Culture Indicated NO My Orders Orders - MARICRUZ RODRÍGUEZ Lactated Ringers (Lr 1000 Ml Iv Solution (10/11/21 08:22) Cbc With Automated Diff (10/11/21 08:23) Comprehensive Metabolic Panel (10/11/21 08:23) Ua Culture If Indicated (10/11/21 08:23) Chest 1 View, Ap/Pa Only (10/11/21 08:23) Accucheck Stat ONCE (10/11/21 08:23) Ed Iv/Invasive Line Start (10/11/21 08:23) Lactated Ringers (Lr 1000 Ml Iv Solution (10/11/21 08:30) D50w (Emergency) Syringe (Dextrose 50% 5 (10/11/21 08:30) Accucheck Stat ONCE (10/11/21 08:52) Accucheck Stat ONCE (10/11/21 09:43) General/Regular (10/11/21 Breakfast) Accucheck Stat ONCE (10/11/21 11:40) Medications Given in ED Current Medications Medications Dose Ordered Sig/Sylvester Route Start Time Stop Time Status Last Admin Dose Admin Dextrose 50 ml ONCE ONCE IV 10/11/21 08:30 10/11/21 08:32 DC 10/11/21 08:20 50 ML Lactated Ringer's 1,000 ml @ 0 mls/hr Q0M ONCE IV 10/11/21 08:30 10/11/21 08:32 DC 10/11/21 08:25 0 MLS/HR Vital Signs/I&O 10/11/21 10/11/21 08:15 13:00 Temp 36.2 Pulse 71 77 Resp 16 16 B/P (MAP) 177/92 (120) 154/77 Pulse Ox 100 100 O2 Delivery Room Air Room Air Blood Pressure Mean: 120 Progress Progress Note #1: Time: 09:45 Progress Note Immediately after administering D50 the patient sat up and started talking and smiling. Neurologic deficits had disappeared. We will look for signs of infection with some labs and urine. Catheter was placed to get a clean urine specimen. We will get the patient something to eat and recheck blood sugars. Progress Note #2: Time: 12:05 Progress Note Had a conversation with the daughter, JAMAL and chaplain Orly about goals of care. He did make it clear for many decades that he did not want artificial prolongation of life. He is a DNR/DNI. He has also vociferously complained about Accu-Cheks and vital signs and pulled all of his leads off. We discussed that he might be in his best interest to pursue a comfort care only approach given his advanced dementia and the daughter who is a retired nurse agreed that that would be the best case for him. She is going to discuss with some friends before she chooses a hospice company so we will write orders to have hospice company consulted by group home staff. We discontinued all of his medicines except for his Sinemet and olanzapine. Left a voicemail with his PCP. He refused his last Accu-Chek. Diagnostic Imaging Diagonstic Imaging: Xray Plain Films/CT/US/NM/MRI: chest Comments [email or web address]. [place], [place] NAME: ANGELITA FOX [facility] REC#: [id number] PT STATUS: REG ER : 1935 PHYSICIAN: MARICRUZ RODRÍGUEZ MD ADMIT DATE: 10/11/21/ER Draft Date of Exam:10/11/21 CHEST 1 VIEW, AP/PA ONLY INDICATION: Stroke symptoms, facial drooping, low blood sugar. Frontal chest obtained at 8:53 a.m. and compared with 01/08/2021. Heart and mediastinal silhouette are normal in appearance. The lungs are clear. There is no pneumothorax or pleural fluid. IMPRESSION: Negative chest. Dictated on workstation # [id number] Dict: 10/11/21854 Trans: 10/11/21857 CVB [id number] Interpreted by: SHIELA TREVIZO MD Electronically signed by: Reviewed: Reviewed by Me Departure Communication (PCP) 1225: Discussed case Dr. Rufino Mann and apprised him the situation and he agrees with the plan Impression Primary Impression: Hypoglycemia associated with type 2 diabetes mellitus Additional Impressions: Advanced dementia Transitioned from emergency department to hospice Disposition: 01 HOME, SELF-CARE Condition: Stable Departure-Patient Inst. Decision time for Depature: 12:08 Referrals: RUFINO MANN MD (PCP/Family) Primary Care Physician Patient Instructions: Low Blood Sugar, Adult ED, Dementia (DC) Add. Discharge Instructions: Contact daughter for establishment and hospice care. Discontinue all vitals and Accu-Cheks. Discontinue all medicines except for olanzapine and Sinemet. Morphine as necessary for pain or air hunger. Ativan as necessary for anxiety. Tylenol as necessary for pain. Comfort care only. All discharge instructions reviewed with patient and/or family. Voiced understanding. Scripts Lorazepam (Lorazepam Intensol) 2 Mg/1 Ml Oral.conc 2 MG PO Q2H PRN for AGITATION, #30 ML 0 Refills Prov: MARICRUZ RODRÍGUEZ 10/11/21 Morphine Sulfate (Morphine Sulfate) 20 Mg/5 Ml Solution 10 MG PO Q2H PRN for PAIN-BREAKTHROUGH for 7 Days, #1 EA 0 Refills Prov: MARICRUZ RODRÍGUEZ 10/11/21 Copy Copies To 1: RUFINO MANN MD, TITUS J Oct 11, 2021 08:33
[2021-10-11 08:37] LABS: ALBUMIN 3.7 GM/DL (3.2-4.5); POTASSIUM 4.3 MMOL/L (3.6-5.0)
[2021-10-11 08:39] LABS: CALCIUM 9.3 MG/DL (8.5-10.1)
[2021-10-11 08:40] LABS: TOTAL PROTEIN 6.3 GM/DL (6.4-8.2)
[2021-10-11 08:42] LABS: BILIRUBIN,TOTAL 0.6 MG/DL (0.1-1.0)
[2021-10-11 08:43] LABS: CREATININE SERUM 0.8 MG/DL (0.60-1.30)
[2021-10-11 08:45] LABS: BILIRUBIN,URINE NEGATIVE (NEGATIVE); CLARITY,URINE CLEAR; COLOR,URINE YELLOW; GLUCOSE, URINE (UA) TRACE (NEGATIVE); KETONES,URINE NEGATIVE (NEGATIVE); LEUKOCYTE ESTERASE ,URINE NEGATIVE (NEGATIVE); NITRITE,URINE NEGATIVE (NEGATIVE); PROTEIN,URINE NEGATIVE (NEGATIVE)
[2021-10-11 08:53] LABS: BACTERIA,URINE NEGATIVE /HPF; RBC,URINE RARE /HPF; WBC,URINE RARE /HPF
--- NOTE | 2021-10-11 08:58 | Diagnostic Imaging Report ---
INDICATION: Stroke symptoms, facial drooping, low blood sugar. Frontal chest obtained at 8:53 a.m. and compared with 01/08/2021. Heart and mediastinal silhouette are normal in appearance. The lungs are clear. There is no pneumothorax or pleural fluid. IMPRESSION: Negative chest. Dictated by: Dictated on workstation # [id number]
[2021-10-11] MEDS ORDERED: MORP20SO PO (12:14)
[2021-10-11] MEDS ORDERED: LORA2ORA PO (12:14)
[2021-10-11 13:00] VITALS: BP 154/77
== END 2021-10-11 13:00 | disposition home or self-care (01) ==
LOC: EDUNIT# 08:15 → ER 08:16
DX: E11.649 Type 2 diabetes mellitus with hypoglycemia without coma (principal); F03.90 Unspecified dementia, unspecified severity, without behavioral disturbance, psychotic disturbance, mood disturbance, and anxiety; Z79.84 Long term (current) use of oral hypoglycemic drugs; Z79.82 Long term (current) use of aspirin; Z79.01 Long term (current) use of anticoagulants
CPT/HCPCS: 36415; 51702; 71045; 80053; 81000; 82947; 85025; 96361; 96374